=== PATIENT | male | born 1950 | race Caucasian/White ===

== ENCOUNTER → 2019-09-20 10:32 | Outpatient (BNVA) | payer MEDICARE, OTHER, SELFPAY | PROVIDERS: Family Provider Family Medicine; PCP Family Medicine; Referring Provider Family Medicine; Visit Provider Orthopaedic Surgery | DX: M76.51 Patellar tendinitis, right knee (principal); M25.561 Pain in right knee | CPT/HCPCS: 73560; 73565 ==

== ENCOUNTER → 2019-10-21 10:16 | Outpatient (BNVA) | payer MEDICARE, OTHER, SELFPAY | PROVIDERS: Family Provider Family Medicine; PCP Family Medicine; Visit Provider Orthopaedic Surgery | DX: M25.561 Pain in right knee (principal) | CPT/HCPCS: 73560; 73565 ==

== ENCOUNTER 2019-11-13 13:07 | Outpatient (CLI) | payer OTHER, SELFPAY ==
--- NOTE | 2019-11-13 13:30 | USCV_ITS ---
Nehemiah Parkinson Age: 69 Gender: M : 1950 Exam Date: 11/13/2019 13:22 Ordering Phys: Bucky Vieyra DO Technologist: Lee Ann Arias [place] [facility] [place]: BRUIT Risk Factors: Previous Vascular Surgery: Right Brachial BP: / Left Brachial BP: / Right Left Velocity (cm/s) Spectral Plaque Velocity (cm/s) Spectral Plaque Syst/Diast Broadening Syst/Diast Broadening 105.80/7.70 Prox CCA 122.30/ 11.80 66.80/ 8.50 Mid CCA 91.40 / 9.40 66.80/ 9.30 Distal CCA 91.40 / 8.50 35.90/ 9.00 Prox ICA 50.00 / 11.80 68.40/ 15.80 Mid ICA 53.50 / 10.80 66.50/ 15.30 Distal ICA 78.90 / 12.00 67.70 ECA 101.70 1.02 ICA/CCA 0.86 Antegrade Vertebral Antegrade 50.00/ 9.20 cm/s 66.70/ 13.70 cm/s Tri Subclavian Tri 227.2 136.7 0 0 FINDINGS Comparison: none available. No significant elevation of systolic or diastolic velocities. Waveforms are normal. Mild bilateral atherosclerosis. CONCLUSIONS Bilateral ICA stenosis less than 50%. Dr. Emilie High DO (Electronically Signed) Final Date: 14 November 2019 13:53 S
== END 2019-11-13 13:08 | disposition home or self-care (01) ==
LOC: RADWPI 13:12
PROVIDERS: Family Provider Family Medicine; PCP Family Medicine; Visit Provider Emergency Medicine Emergency Medical Services
DX: R09.89 Other specified symptoms and signs involving the circulatory and respiratory systems (principal); I65.23 Occlusion and stenosis of bilateral carotid arteries
CPT/HCPCS: 93880

== ENCOUNTER → 2020-01-08 16:45 | Outpatient (BNVA) | payer MEDICARE, OTHER, SELFPAY | PROVIDERS: Family Provider Family Medicine; PCP Family Medicine; Visit Provider Urology | DX: R31.0 Gross hematuria (principal); N40.1 Benign prostatic hyperplasia with lower urinary tract symptoms | CPT/HCPCS: 80053; 81001 ==

== ENCOUNTER → 2020-01-09 15:14 | Outpatient (BNVA) | payer MEDICARE, OTHER, SELFPAY | PROVIDERS: Family Provider Family Medicine; PCP Family Medicine; Visit Provider Urology | DX: R31.0 Gross hematuria (principal); N40.1 Benign prostatic hyperplasia with lower urinary tract symptoms | CPT/HCPCS: 88112 ==

== ENCOUNTER 2020-01-22 06:47 | Outpatient (CLI) | payer MEDICARE, OTHER, SELFPAY ==
[2020-01-22 07:36] LABS: Blood Urea Nitrogen 11 mg/dL (8-23); Glomerular Filtration Rate 83.4 mL/min (90-130)
[2020-01-22] MEDS: iohexol 300 mg/mL 100 mL Btl IV (07:51)
--- NOTE | 2020-01-22 08:30 | CT_ITS ---
WS: [id number] CT abdomen pelvis wo/w [id number] REASON FOR EXAM: GROSS HEMATURIA IV CONTRAST ADMINISTERED: None. TOTAL EXAM DLP: 3558.[address] scans at [facility] use at least one of these dose optimization techniques: automat ed exposure control; mA and/or kV adjustment per patient size (includes targeted exams where dose is matched to clinical indication); or iterative reconstruction. FINDINGS: The lower lungs appear to be normal. The liver was normal The gallbladder showed no definite stones. There is heavy arteriosclerotic changes of the celiac plexus. The spleen was normal The right left adrenal glands show fatty contents consistent with myelolipoma changes of the adrenal glands. The right and left knees both show stones enlarged staghorn calculus is seen on the left 1.32 cm. Sma ll stones are seen on the right extrarenal pelvis on the right is seen. A definite obstructed ureters not noted. The right colon shows fecal stasis, appendix is not well seen. The aorta and iliac arteries show heavy calcified. In the pelvis a mass is seen in the area of the prostate measures 7.70 x 7.19 cm inhomogenous configu ration aggressive prostate is suspected follow-up evaluation rule out malignancy recommended. A right-sided inguinal hernia with fat in the hernia. The testicles appear to be normal The rectum was normal. A prosthesis total hip replacement on the right. There is no destructive changes of the pelvic bony CT/CT abdomen pelvis wo/w [id number] IMPRESSION: Staghorn calculus left kidney Calcification in both kidneys. No obstructive uropathy. A mass defect of the prostate is seen with inhomogenous configuration evaluatio n recommended for malignancy. Heavy arteriosclerotic changes of the vasculature
== END 2020-01-22 06:48 | disposition home or self-care (01) ==
LOC: CT 06:48
PROVIDERS: Family Provider Family Medicine; PCP Family Medicine; Visit Provider Urology
DX: R31.0 Gross hematuria (principal); N20.0 Calculus of kidney; N28.89 Other specified disorders of kidney and ureter; N40.0 Benign prostatic hyperplasia without lower urinary tract symptoms
CPT/HCPCS: 36415; 74178; 82565; 84520

== ENCOUNTER → 2020-01-24 10:36 | Outpatient (BNVA) | payer MEDICARE, OTHER, SELFPAY | PROVIDERS: Family Provider Family Medicine; PCP Family Medicine; Visit Provider Urology | DX: R31.0 Gross hematuria (principal); N20.0 Calculus of kidney | CPT/HCPCS: 81001 ==

== ENCOUNTER 2020-03-04 13:06 | Outpatient (CLI) | payer MEDICARE, OTHER, SELFPAY ==
--- NOTE | 2020-03-04 13:10 | USCV_ITS ---
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
== END 2020-03-04 13:07 | disposition home or self-care (01) ==
LOC: US 13:07
PROVIDERS: PCP Family Medicine; Visit Provider Family Medicine
DX: I73.9 Peripheral vascular disease, unspecified (principal); L97.829 Non-pressure chronic ulcer of other part of left lower leg with unspecified severity; L97.819 Non-pressure chronic ulcer of other part of right lower leg with unspecified severity
CPT/HCPCS: 93922

== ENCOUNTER 2020-04-14 14:26 | Outpatient (CLI) | payer MEDICARE, OTHER, SELFPAY ==
--- NOTE | 2020-04-14 14:30 | XRR_ITS ---
PROCEDURE INFORMATION: Exam: XR Abdomen, 1 View Exam date and time: 04/14/2020 2:44 PM Age: 70 years old Clinical indication: Condition or disease; Kidney or ureter condition; Calculus (stone) in kidney; Prior surgery; Surgery type: Hernia, appy; Additional info: Renal stones TECHNIQUE: Imaging protocol: XR of the abdomen. Views: Frontal supine view of the abdomen. 1 View. COMPARISON: CT abdomen pelvis wo/w [id number] 01/22/2020 7:41 AM FINDINGS: Gastrointestinal tract: There is stool throughout the colon. No bowel obstruction. Organs: There is 2.1 cm calcification in the inferior left kidney. Calcifications are also seen in the mid left kidney. Bones/joints: There has been a right hip replacement. XR/XR KUB [id number] IMPRESSION: There is 2.1 cm calcification in the inferior left kidney. Calcifications are also seen in the mid left kidney.
== END 2020-04-14 14:27 | disposition home or self-care (01) ==
LOC: RAD 14:28
PROVIDERS: PCP Family Medicine; Visit Provider Urology
DX: N20.0 Calculus of kidney (principal)
CPT/HCPCS: 74018; 81001

== ENCOUNTER 2020-07-10 16:33 | Emergency (ER) | payer MEDICARE, OTHER, SELFPAY ==
[2020-07-10 16:39] VITALS: BP 134/84; PULSE 61; RESP 18; TEMP 36.2; O2SAT 95; BMI 26.6
[2020-07-10 16:45] VITALS: BP 134/84; PULSE 60; RESP 18; O2SAT 95
--- NOTE | 2020-07-10 16:56 | ED_ITS ---
HPI - Abdominal Pain General: Chief Complaint: Abdominal Pain Stated Complaint: OBSTRUCTION Time Seen by Provider: 07/10/20 16:38 Source: patient Mode of arrival: ambulatory Limitations: no limitations History of Present Illness: HPI narrative: Patient complains of left sided abdominal pain, nausea, and vomiting. He is also constipated and has not had a bowel movement in about 3 days, normal for him is about 2 to 3 times daily. He has taken laxatives with no improvement. He went to see his primary care provider today and an x-ray done was concerning for a bowel obstruction so he was sent to the emergency department for evaluation MD elicited complaint: abdominal pain Pertinent past history: constipation Onset (ago): day(s) (3) Pain Consistency: constant Location: Diffuse Severity: severe Quality: cramping Radiation: none Migration to: no migration Exacerbating factors: nothing Relieving factors: nothing Associated Symptoms: Reports change in bowel habits, constipation, GI cramping, nausea and vomiting; Denies anorexia, belching, bloating, change in stool character, chills, coffee ground emesis, diarrhea, dyspepsia, dysuria, excessive flatus, fever(s), heartburn, hematochezia, hematuria, hematemesis, fecal incontinence, loose stools, melena, poor appetite and syncope Review of Systems General: Reports: 10 or more systems reviewed and unremarkable except in HPI and below Const: Denies: fever(s) or chills Eyes: Denies: change in vision or blurry vision ENMT: Denies: throat pain, enlarged tonsils, odynophagia, hoarseness, mouth pain or swelling of lips/tongue Card: Denies: syncope Resp: Denies: dyspnea, productive cough or non-productive cough GI: Reports: abdominal pain, nausea, vomiting, constipation, GI cramping and change in bowel habits; Denies: hematemesis, coffee ground emesis, heartburn, diarrhea, bloating, belching, excessive flatus, fecal incontinence, change in stool character, hematochezia or melena : Denies: dysuria or hematuria Musc: Denies: neck pain, back pain or extremity swelling Skin/Breast: Denies: rash, pruritus or erythema Neuro: Denies: headache(s), numbness in extremities or weakness in extremities Endo: Denies: polyuria, polydipsia or tired all the time PFSH ED PFSH: Medical History (Updated 07/10/20 @ 23:36 by Abel Delvalle [place], [facility] [place] Bilateral renal stones BPH NOS w ur obs/LUTS COPD (chronic obstructive pulmonary disease) Degenerative arthritis of knee Diabetes High cholesterol Family History Father Diabetes Other Stroke Social History Smoking and tobacco status: former smoker Alcohol intake: never Marital status: Current occupational status: retired History of recent travel: No Physical Exam Const: COMMON NORMALS: no acute distress, average body habitus, patient oriented x3, no limitations, healthy appearing, alert and well nourished HENMT: COMMON NORMALS: normocephalic, atraumatic and moist oral mucous membranes HEAD & SCALP: normocephalic and atraumatic Neck/C-Spine: COMMON NORMALS: no meningeal signs and no JVD Resp: COMMON NORMALS: normal respiratory effort, No retractions, No use of accessory muscles, clear to auscultation bilaterally and percussion normal AUSCULTATION: clear to auscultation bilaterally PERCUSSION: percussion normal Cardio: COMMON NORMALS: no JVD, regular rate, regular rhythm, S1 normal heart sound present, S2 normal heart sound present, No gallops present (Cardio), No clicks present (Cardio), No murmurs present (Cardio), No rub (Cardio) and Peripheral pulses 2+ throughout RATE: regular rate RHYTHM: regular rhythm HEART SOUNDS: S1 normal heart sound present and S2 normal heart sound present PERIPHERAL PULSES: Peripheral pulses 2+ throughout GI: COMMON NORMALS: Normal to inspection, nondistended, normoactive bowel sounds present, Soft to palpation, No hepatosplenomegaly present, no masses and no bruits PALPATION: Yes Soft to palpation, Yes Tenderness to palpation prese nt (GI) (mild non specific tenderness) and Yes No hepatosplenomegaly present Extremity: COMMON NORMALS: normal to inspection, full ROM, capillary refill normal, no calf tenderness and no pedal edema Neuro: COMMON NORMALS: patient oriented x3 SENSORIUM/ORIENTATION: Yes alert MENINGEAL SIGNS: Yes no meningeal signs Skin: COMMON NORMALS: no rashes or lesions noted, no wounds, turgor normal, no jaundice, no petechiae and no mottling GENERAL SKIN EXAM: no rashes or lesions noted and turgor normal Course Reevaluation(s): Reevaluation #1: Discussed his lab and imaging findings with him. He has a large left renal calculus which will need removal. 2 large to person exam. He has hydronephrosis. Also has mild acute kidney injury. Explained my conversation with the urologist and he voiced understanding and is in agreement with the plan. Time: 20:00 Consultations: Consultation #1: Discussed the patient with Dr. Sparks. The patient should call him to the office on Monday for lithotripsy if his pain is well controlled. Clear liquids on Monday and Monday up to 8 AM. Time: 19:45 Vital Signs: Vital signs: Vital Signs Temperature 97.2 F L 07/10/20 16:39 Pulse Rate 64 07/10/20 20:17 Respiratory Rate 16 07/10/20 20:17 Blood Pressure 164/93 07/10/20 20:17 Pulse Oximetry 96 07/10/20 20:17 MDM - Abdominal Pain MDM Narrative: Medical decision making narrative: 70-year-old male with a large calculus at the left UP junction. He also has moderate to severe hydronephrosis. Pain was well controlled in the emergency department and he discharged home to follow-up with the urologist on Monday for lithotripsy. UA was negative for UTI. White cell count is normal. Differential Diagnosis: Differential diagnosis abdominal pain: Likely abdominal pain, acute appendicitis, calculus of kidney and constipation Medical Records: Attestation: I reviewed the patient's medical records. Lab Data: Attestation: I reviewed the patient's lab results. Labs: Lab Results 07/10/20 07/10/20 07/10/20 Range/Units 17:00 17:00 17:00 WBC 9.8 (4.0-10.0) 10^3/ uL RBC 4.77 (4.1-5.3) 10^6/u L Hgb 13.3 (11.7-16.6) g/dL Hct 38.8 L (42.0-52.0) % MCV 81.3 (80-94) fL MCH 27.9 L (28.0-34.0) pg MCHC 34.3 (30.0-36.0) g/dL RDW 12.5 (12.1-15.1) % Plt Count 128 L (130-400) 10^3/c mm MPV 10.3 (7.4-10.4) fL Neut % (Auto) 71.4 % Lymph % (Auto) 15.4 % [place] % (Auto) 12.1 % Eos % (Auto) 0.4 % Baso % (Auto) 0.3 % Neut # (Auto) 6.98 (1.8-7.7) 10^3/u L Lymph # (Auto) 1.5 (0.8-4.8) 10^3/u L [place] # (Auto) 1.2 H (0.2-0.9) 10^3/u L Eos # (Auto) 0.0 (0.0-0.8) 10^3/u L Baso # (Auto) 0.0 (0.0-0.1) 10^3/u L Nucleated RBC % (a uto) 0 % Nucleated RBCs # 0.0 /100WBC Sodium 137 (136-145) mmol/L Potassium 4.2 (3.5-5.1) mmol/L Chloride 99 (98-107) mmol/L Carbon Dioxide 28 (22-29) mmol/L Anion Gap 14.2 (5-19) BUN 21 (8-23) mg/dL Creatinine 1.5 H (0.7-1.2) mg/dL GFR Calculation Not Reportable Glucose 119 H (65-115) mg/dL Calculated Osmolal ity 288 (285-295) mOsm/k g Lactate 1.0 (0.5-2.2) mmol/L Calcium 9.4 (8.5-10.5) mg/dL Magnesium 1.9 (1.7-2.3) mg/dL Total Bilirubin 0.5 (0.15-1.2) mg/dL AST 12 (0-40) U/L ALT 9 (0-41) U/L Alkaline Phosphata se 74 (40-130) IU/L Creatine Kinase 85 (39-308) U/L C-Reactive Protein 89.8 H (0.0-4.9) mg/L Total Protein 6.1 L (6.6-8.7) g/dL Albumin 4.2 (3.5-5.2) g/dL Globulin 1.9 (1.3-4.6) g/dL Lipase 7 L (13-60) U/L Urine Color (Yellow) Urine Appearance (CLEAR) Urine pH (5-7) Ur Specific Gravit y (1.005-1.030) Urine Protein (Negative) Urine Glucose (UA) (Normal) Urine Ketones (Negative) Urine Blood (Negative) Urine Nitrate (Negative) Urine Bilirubin (Negative) Urine Urobilinogen (Negative) mg/dL Ur Leukocyte Melina ase (Negative) Urine RBC (0-2) /hpf Urine WBC (0-5) /hpf Ur Squamous Epith Cells (0-5) /hpf Amorphous Sediment Urine Bacteria (NONE) /hpf 07/10/20 Range/Units 18:43 WBC (4.0-10.0) 10^3/ uL RBC (4.1-5.3) 10^6/u L Hgb (11.7-16.6) g/dL Hct (42.0-52.0) % MCV (80-94) fL MCH (28.0-34.0) pg MCHC (30.0-36.0) g/dL RDW (12.1-15.1) % Plt Count (130-400) 10^3/c mm MPV (7.4-10.4) fL Neut % (Auto) % Lymph % (Auto) % [place] % (Auto) % Eos % (Auto) % Baso % (Auto) % Neut # (Auto) (1.8-7.7) 10^3/u L Lymph # (Auto) (0.8-4.8) 10^3/u L [place] # (Auto) (0.2-0.9) 10^3/u L Eos # (Auto) (0.0-0.8) 10^3/u L Baso # (Auto) (0.0-0.1) 10^3/u L Nucleated RBC % (a uto) % Nucleated RBCs # /100WBC Sodium (136-145) mmol/L Potassium (3.5-5.1) mmol/L Chloride (98-107) mmol/L Carbon Dioxide (22-29) mmol/L Anion Gap (5-19) BUN (8-23) mg/dL Creatinine (0.7-1.2) mg/dL GFR Calculation Glucose (65-115) mg/dL Calculated Osmolal ity (285-295) mOsm/k g Lactate (0.5-2.2) mmol/L Calcium (8.5-10.5) mg/dL Magnesium (1.7-2.3) mg/dL Total Bilirubin (0.15-1.2) mg/dL AST (0-40) U/L ALT (0-41) U/L Alkaline Phosphata se (40-130) IU/L Creatine Kinase (39-308) U/L C-Reactive Protein (0.0-4.9) mg/L Total Protein (6.6-8.7) g/dL Albumin (3.5-5.2) g/dL Globulin (1.3-4.6) g/dL Lipase (13-60) U/L Urine Color Yellow (Yellow) Urine Appearance Clear (CLEAR) Urine pH 5 (5-7) Ur Specific Gravit y 1.020 (1.005-1.030) Urine Protein Trace (Negative) Urine Glucose (UA) Norm (Normal) Urine Ketones 1+ H (Negative) Urine Blood 2+ H (Negative) Urine Nitrate Negative (Negative) Urine Bilirubin Neg (Negative) Urine Urobilinogen Norm (Negative) mg/dL Ur Leukocyte Melina ase Negative (Negative) Urine RBC 50-80 H (0-2) /hpf Urine WBC 0-4 H (0-5) /hpf Ur Squamous Epith Cells 0-4 H (0-5) /hpf Amorphous Sediment Not Reportable Urine Bacteria 2+ H (NONE) /hpf Imaging Data ^: CT Abd/Pel: Radiologist's impression: [address] [place] [address] CT Scan Report Signed Patient: Nehemiah Parkinson #: [id number] : 9Acct#:[id number] Age/Sex: 70 / MADM Date: 07/10/20 Loc: ERRoom/Bed: Attending Dr: Ordering Provider/Ordering MD: Abel Delval[place] [facility] [place] of Service: 07/10/20 Procedure(s): CT abdomen pelvis wo con [id number] Accession Number(s): [id number] Report Number: [id number] PROCEDURE INFORMATION: Exam: CT Abdomen And Pelvis Without Contrast Exam date and time: 07/10/2020 5:20 PM Age: 70 years old Clinical indication: Abdominal pain; Localized; Left; Prior surgery; Surgery date: 6+ months; Surgery type: Hernia, hip; Patient HX: C/O L sided abd pain w n/v and constipation; Additional info: Constipation x 3 days, vomiting, abd distension TECHNIQUE: Imaging protocol: Computed tomography of the abdomen and pelvis without contrast. Radiation optimization: All CT scans at this facility use at least one of these dose optimization techniques: automated exposure control; mA and/or kV adjustment per patient size (includes targeted exams where dose is matched to clinical indication); or iterative reconstruction. COMPARISON: CT abdomen pelvis wo/w [id number] 01/22/2020 7:41 AM RADIATION DOSE METRICS: Total DLP (mGy-cm): 1335.25 FINDINGS: Lungs: There is mild bibasilar reticular and ground-glass opacity compatible with atelectasis, scarring or trace pneumonitis. Pleural space: There is trace left pleural fluid. Heart: There is trace pericardial effusion. Liver: Unremarkable.No mass. Gallbladder and bile ducts: Normal. No calcified stones. No ductal dilation. Pancreas: Normal. No ductal dilation. Spleen: Normal. No splenomegaly. Adrenal glands: Normal. No mass. Kidneys and ureters: There is nonobstructive right nephrolithiasis and renal vascular calcifications. There is moderate to severe left hydronephrosis with abundant left perinephric fat stranding and a 1.5 cm calculus at the left ureteral pelvic junction. Nonobstructive left nephrolithiasis and renal vascular calcifications are also noted. No additional calculi are identified in the left ureter. There is no right-sided hydronephrosis. There is a calculus in the distal right ureter just proximal to the right ureteral vesicle junction measuring 6 mm. There is dilatation of the right ureter only immediately adjacent to this calculus. Bilateral non-obstructing calculi measure up to 2 mm on the right and 3 mm on the left. Stomach and bowel: There is no evidence of intestinal perforation or obstruction. There is excessive colonic stool content. Appendix: A normal appendix is identified. Intraperitoneal space: Unremarkable. No free air. No significant fluid collection. Vasculature: The aorta demonstrates moderate atherosclerotic calcification. Lymph nodes: Unremarkable.No enlarged lymph nodes. Urinary bladder: There is nonspecific bladder wall thickening. This may be related to incomplete distention. There are no bladder calculi. Reproductive: The prostate demonstrates marked nonspecific enlargement. The seminal vesicles are normal. The prostate demonstrates nonspecific parenchymal calcifications. Bones/joints: There is a satisfactory appearance of the right hip arthroplasty. There is osteopenia with moderate degenerative changes in the spine. There is bilateral spondylolysis of L5 with grade 1 spondylolisthesis of L5 on S1. Soft tissues: There is a right inguinal hernia containing fat and a loop of bowel at the entrance of the hernia without obstruction. There is a small fat filled left inguinal hernia. Other findings: There are moderate to severe emphysematous changes. CT/CT abdomen pelvis wo con [id number] IMPRESSION: 1. There is moderate to severe left hydronephrosis with abundant left perinephric fat stranding and a 1.5 cm calculus at the left ureteral pelvic junction. 2. There is no right-sided hydronephrosis. There is a calculus in the distal right ureter just proximal to the right ureteral vesicle junction measuring 6 mm. There is dilatation of the right ureter only immediately adjacent to this calculus. 3. There is marked constipation. No bowel thickening, inflammatory changes or bowel obstruction. A nonobstructing segment of small bowel is noted in the entrance of the right inguinal hernia. 4. There is mild bibasilar reticular and ground-glass opacity compatible with atelectasis, scarring or trace pneumonitis. Radiation Dose CTDIVOL = (mGy): DLP = 1335.25 (mGy-cm) Dictated By:Kaila Younger Signed By:Marissa Youngerigned Date/Time:07/10/201802 DD/ 01 Discharge Plan Discharge Patient Disposition: Home Clinical Impression: Calculus of kidney, Hydronephrosis concurrent with and due to calculi of kidney and ureter, VEDA (acute kidney injury) Condition: Stable Prescriptions: [place] 5-325 mg tablet 1 tab PO Q8H PRN (Reason: pain) Qty: 20 RF: 0 lactulose 10 gram/15 mL (15 mL) solution 30 ml PO TID PRN (Reason: constipation) Qty: 1440 RF: 0 Metamucil 3.4 gram/5.4 gram powder 1 tbsp PO BID Qty: 660 RF: 0 Colace 100 mg capsule 100 mg PO BID Qty: 30 RF: 0 Continued atenolol 100 mg tablet 100 mg PO DAILY@09 RF: 0 albuterol sulfate 90 mcg/actuation aerosol powdr breath activated 3 inh INHALATION QID PRN (Reason: Shortness Of Breath) RF: 0 docusate sodium 50 mg capsule 150 mg PO DAILY@18 RF: 0 simvastatin 40 mg tablet 20 mg PO DAILY@09 RF: 0 omeprazole 20 mg capsule,delayed release(DR/EC) 20 mg PO BID@ RF: 0 fluoxetine 20 mg capsule 20 mg PO DAILY@ RF: 0 Spiriva Respimat 2.5 mcg/actuation mist 2 inh INHALATION DAILY@ RF: 0 metformin 1,000 mg tablet 1,000 mg PO BID@ RF: 0 sildenafil 100 mg tablet 20 - 100 mg PO PRN RF: 0 Lantus U-100 Insulin 100 unit/mL solution 46 unit SUBCUT BEDTIME RF: 0 Vitamin C 500 mg Tablet 500 mg PO DAILY@09 RF: 0 Humulin R Regular U-100 Insuln 100 unit/mL Solution See Rx Instructions .ROUTE .COMPLEX RF: 0 losartan 100 mg tablet 50 mg PO DAILY RF: 0 Vitamin D3 25 mcg (1,000 unit) Capsule 2,000 unit PO DAILY@18 RF: 0 Centrum Silver 0.4-300-250 mg-mcg-mcg Tablet 1 tab PO DAILY@09 RF: 0 tamsulosin 0.4 mg capsule 0.4 mg PO DAILY@18 RF: 0 dutasteride 0.5 mg capsule 0.5 mg PO DAILY@09 RF: 0 Discharge Orders: Discharge ED (Routine); Ordered 07/10/20 Ordered By: Abel Delvalle Referrals: Kevin Sparks MD [Physician] - 07/13/20 Clarence Bradford MD [Primary Care Provider] - Discharge Diet: As Directed Discharge Activity: Increase activity as tolerated Patient Instructions: Kidney Stones (ED), Hydronephrosis (ED) Activity Restrictions/Additional Instructions: Return for any new or worsening symptoms. Follow-up with Dr. Sparks on Monday around 8:00. On Monday consume clear liquids only until about 7:00 on Marco A morning. If you have pain gets worse or you develop a fever or you have any concerns please return for evaluation. Take the pain medicine as needed. Take the medications for constipation until you have had good bowel movements. 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
[2020-07-10 17:13] LABS: Basophils % 0.3 %; Eosinophils % 0.4 %; Hematocrit 38.8 % (42.0-52.0); Hemoglobin 13.3 g/dL (11.7-16.6); Lymphocytes # 1.5 10^3/uL (0.8-4.8); Lymphocytes % 15.4 %; Mean Corpuscular HGB Conc 34.3 g/dL (30.0-36.0); Mean Corpuscular Hemoglobin 27.9 pg (28.0-34.0); Mean Corpuscular Volume 81.3 fL (80-94); Mean Platelet Volume 10.3 fL (7.4-10.4); Monocytes # 1.2 10^3/uL (0.2-0.9); Monocytes % 12.1 %; Neutrophils # 6.98 10^3/uL (1.8-7.7); Neutrophils % 71.4 %; Nucleated Red Blood Cells % 0 %; Platelet Count 128 10^3/cmm (130-400); Red Blood Count 4.77 10^6/uL (4.1-5.3); Red Cell Distribution Width 12.5 % (12.1-15.1); White Blood Count 9.8 10^3/uL (4.0-10.0)
[2020-07-10 17:28] LABS: Alanine Aminotransferase 9 U/L (0-41); Albumin Level 4.2 g/dL (3.5-5.2); Alkaline Phosphatase 74 IU/L (40-130); Anion Gap 14.2 (5-19); Aspartate Amino Transferase 12 U/L (0-40); Blood Urea Nitrogen 21 mg/dL (8-23); C Reactive Protein 89.8 mg/L (0.0-4.9); Calcium 9.4 mg/dL (8.5-10.5); Carbon Dioxide 28 mmol/L (22-29); Chloride 99 mmol/L (98-107); Creatine Phosphokinase 85 U/L (39-308); Globulin 1.9 g/dL (1.3-4.6); Glucose 119 mg/dL (65-115); Lipase 7 U/L (13-60); Magnesium 1.9 mg/dL (1.7-2.3); Osmolality Calculated 288 mOsm/kg (285-295); Potassium 4.2 mmol/L (3.5-5.1); Sodium 137 mmol/L (136-145); Total Bilirubin 0.5 mg/dL (0.15-1.2); Total Protein 6.1 g/dL (6.6-8.7)
[2020-07-10 17:42] VITALS: BP 149/79; PULSE 57; RESP 17; O2SAT 94
--- NOTE | 2020-07-10 17:43 | PC.NURSE ---
Pt to CT
[2020-07-10] MEDS: sodium chloride 0.9% 1,000 ML 999 ML IV (18:23)
[2020-07-10 18:44] VITALS: BP 152/88; PULSE 60; RESP 18; O2SAT 96
[2020-07-10 19:28] LABS: Protein Urine Trace (Negative); Urine Appearance Clear (CLEAR); Urine Color Yellow (Yellow); pH Urine 5 (5-7)
[2020-07-10 19:29] LABS: Add Urine Microscopic? YES; Bilirubin Urine Neg (Negative); Blood Urine 2+ (Negative); Glucose Urine UA Norm (Normal); Ketones Urine 1+ (Negative); Leukocyte Esterase Urine Negative (Negative); Nitrate Urine Negative (Negative); Urobilinogen Urine Norm (Negative)
[2020-07-10 19:36] LABS: RBC Urine 50-80 /hpf (0-2); Squamous Epithelial Cell Urine 0-4 /hpf (0-5); WBC Urine 0-4 /hpf (0-5)
[2020-07-10 19:37] LABS: Add Urine Culture? Yes; Bacteria Urine 2+ /hpf
[2020-07-10 20:17] VITALS: BP 164/93; PULSE 64; RESP 16; O2SAT 96
[2020-07-13 10:38] LABS: Coronavirus Lab Test PTC Negative
--- NOTE | 2020-07-13 18:57 | PC.NURSE ---
pt called and given the results of his covid test
== END 2020-07-10 20:18 | disposition home or self-care (01) ==
PROVIDERS: Emergency Provider Family Medicine; PCP Family Medicine
DX: N17.9 Acute kidney failure, unspecified (principal); N13.2 Hydronephrosis with renal and ureteral calculous obstruction; Z79.4 Long term (current) use of insulin; Z87.442 Personal history of urinary calculi; J44.9 Chronic obstructive pulmonary disease, unspecified; E11.9 Type 2 diabetes mellitus without complications; Z87.891 Personal history of nicotine dependence
CPT/HCPCS: 12345; 74176; 80053; 81001; 82550; 83605; 83690; 83735; 85025; 86140; 87086; 87635; 96360; 99282; 99283; J7030

== ENCOUNTER 2020-07-13 08:06 | Outpatient (CLI) | payer MEDICARE, OTHER, SELFPAY ==
--- NOTE | 2020-07-13 08:13 | XR_ITS ---
WS: [id number] XR KUB [id number] REASON FOR EXAM: STONES FINDINGS: There are multiple small calculi in the left kidney as shown by previous CT scan 07/10/2020. There is now a large calculus at the left ureteropelvic junction also demonstrated on the previous CT scan. Th at calculus was within the kidney on CT scan of 01/22/2020. The position of this calculus has not rico ged in the interval between 07/10 and 07/13/2020. XR/XR KUB [id number] IMPRESSION: Left urinary tract calculi as above.
== END 2020-07-13 08:07 | disposition home or self-care (01) ==
LOC: RAD 08:10
PROVIDERS: PCP Family Medicine; Visit Provider Urology
DX: N20.0 Calculus of kidney (principal)
CPT/HCPCS: 74018; 81003

== ENCOUNTER 2020-07-13 14:17 | Day surgery (SDC) | payer MEDICARE, OTHER, SELFPAY ==
[2020-07-13] VITALS (7 sets, daily range): BP systolic 141–176; BP diastolic 76–97; PULSE 58–81; RESP 17–20; TEMP 36.3–36.4; O2SAT 93–100
[2020-07-13 15:16] LABS: Glucose Point of Care 125 mg/dL (70-110)
[2020-07-13] MEDS: sodium chloride 0.9% 1,000 ML 30 ML IV (15:25)
--- NOTE | 2020-07-13 15:29 | ANES.PREANE2 ---
Pre-Anesthetic Assessment Pre-Anesthetic Assessment: Height/Weight: Height 1.8 m Weight 86.183 kg Preop Diagnosis: Large obstructing left proximal ureteral stone Proposed Procedure: Operation Date: 07/13/20 15:45 Proposed Procedures p Cystoscopy 56753 15666 N20.1(Not Applicable) - MD travis Scanlon left Ureteral Stent Placement(Left) - MD travis Scanlon ESWL Extracorporeal Shockwave Lithotrispy(Not Applicable) - Kevin Sparks MD Familial anesthetic complications: None Was Beta Baltazar taken within 24 hours: N/A Last intake: Intake Last Liquid Date 07/13/20 Last Liquid Time 08:00 Last Solid Date 07/12/20 Last Solid Time 12:00 Social: Social History: No alcohol and No tobacco Exam: Pre-Anes Outpt Exam: alert, oriented x 3, clear to auscultation bilaterally and regular rate & rhythm Airway: Cervical ROM: WNL MP: 3 Dentition: Other (no teeth) Pulmonary: Pulmonary: COPD CV/HEM: CV/HEM: HTN : Comments: VEDA - hydronephrosis GI: GI: GERD Metabolic: Metabolic: DM Anesthetic Plan: ASA status: 3 Anesthesia: General Risk of > 500 ml blood loss (7ml/kg in children): No Meds/Allergies Current Medications: Current Medications Generic Name Dose Route Start Last Admin Trade Name Freq PRN Reason Stop Dose Admin Sodium Chloride 1,000 mls @ 30 ml s/hr 07/13/20 15:15 07/13/20 15:25 Sodium Chloride 0.9% IV 07/14/20 15:14 30 mls/hr .Q24H CASS Administration PFSH Anesthesia PFSH: Medical History Bilateral renal stones BPH NOS w ur obs/LUTS COPD (chronic obstructive pulmonary disease) Degenerative arthritis of knee Diabetes High cholesterol Left ureteral calculus Family History Father Diabetes Other Stroke Social History Smoking and tobacco status: former smoker Alcohol intake: never Marital status: Current occupational status: retired History of recent travel: No Data Anesthesia Other Labs: Laboratory Results - last 48 hr 07/13/20 15:13 POC Glucose 125 Cardiac Studies: No Data to Display
--- NOTE | 2020-07-13 16:20 | W.PM.OPSUD ---
Surgery/Procedure H&P Update DATE OF PROCEDURE: July 13, 2020 DATE H&P PERFORMED: 07/13/20 H&P UPDATE INFORMATION: I have reviewed H&P completed within last 30 days, I have examined patient prior to procedure, No changes to prior documentation and H&P to be scanned into chart PREOP DIAGNOSIS: Large obstructing left proximal ureteral stone PLANNED PROCEDURE: Operation Date: 07/13/20 15:45 Proposed Procedures p Cystoscopy 57035 30673 N20.1(Not Applicable) - Kevin Sparks MD s left Ureteral Stent Placement(Left) - Kevin Sparks MD s ESWL Extracorporeal Shockwave Lithotrispy(Not Applicable) - Kevin Sparks MD
--- NOTE | 2020-07-13 16:22 | P.OP_ITS ---
Operative Report Date of procedure: July 13, 2020 Pre-op Diagnosis: Large obstructing left proximal ureteral stone Post-op diagnosis: same Procedure Done: 1. Cystoscopy, left ureteral stent placement 2. Extracorporeal shockwave lithotripsy Pathology: none sent Surgeon: Bridger Raiser Helper: Luther Chu: Lithotripsy commercial pest control technician Anesthesia: General Estimated blood loss: Minimal Urine output: Not measured Complications: None Findings: Has severe J hooking of his distal ureters which made passage of the wire and stent somewhat difficult but ultimately successful. Stone was easily located with biplanar fluoroscopy. 2500 shocks administered. Excellent and early change was noted. Condition: stable Disposition: PACU Brief History: Killian is a very pleasant 70-year-old white male with a known history of asymptomatic nonobstructing left renal calculi who 3 days ago presented to the emergency department with severe abdominal pain and was discovered to have the largest of the stones in the left kidney having migrated down into the proximal ureter causing obstruction. He was aggressively managed with medication and was able to control the pain enough to be managed as an outpatient in anticipation of ESWL today. No contraindication to surgery. Procedure: After routine preoperative evaluation examination and obtaining of informed consent he was taken to the operating suite on 07/13/2020 where general anesthesia was administered without difficulty after appropriate timeout was performed, SCDs confirmed to be functioning, preoperative antibiotics administered, beta-wu protocol confirmed. Prepped and draped in the usual sterile fashion in supine position paying careful attention to avoiding pressure points. 21 Greenlandic cystoscope with 30 degree lens was introduced into the urethral meatus and advanced into the bladder under videoscopy. Bladder was systematically examined and found to be the normal limits. Has a huge prostate gland. Flexible tip guidewire was then passed up the left ureter bypassing the stone. A 7 Greenlandic by 30 cm double-pigtail stent was then advanced over the guidewire through the cystoscope into appropriate position as confirmed via fluoroscopy and cystoscopy. He was then repositioned on the Dornier unit in supine position and the stone was brought into the focal point utilizing biplanar fluoroscopy with a shock head positioned posteriorly. Shockwave therapy was initiated at an intensity of 1 and advanced an intensity of 4 initially at a rate of 70. After approximately 300 shocks a several minute pause was conducted. Fluoroscopy was utilized real-time for position changes as needed as the stone demonstrated change in its appearance. Results: 1. Excellent change to the stone. Better than anticipated given the density of the stone. 2. Difficult to pass the guidewire due to severe J hooking but ultimately successful with appropriate positioning of the stent. PLANS: 1. Follow-up in about 2 weeks with a KUB first. Consider stent removal at that time if no remaining fragments too large to likely pass. 2. For marginal pieces I would consider re-treating before removing the stent
[2020-07-13] MEDS: HYDROcodone-acetaminophen 5-325 mg Tablet 1 TAB PO (18:50)
--- NOTE | 2020-07-13 19:10 | ANE.PACU2 ---
Inpatient post-anesthesia follow up: Airway intact: Yes Vital signs: Temperature 97.6 F Pulse Rate 63 Respiratory Rate 18 Blood Pressure 175/91 Pulse Oximetry 94 Oxygen Delivery Me thod Room Air Oxygen Flow Rate 8 Fraction of Inspir ed Oxygen Hydration adequate: Yes Nausea and vomiting: No Pain level: 1 Mental status: Baseline
== END 2020-07-13 19:10 | disposition home or self-care (01) ==
PROVIDERS: PCP Family Medicine; Visit Provider Urology
PROC: 0TJB8ZZ Inspection of Bladder, Via Natural or Artificial Opening Endoscopic (ICD-10-PCS; CPT 52000; principal; 2020-07-13 15:45)
PROC: (CPT 50605; 2020-07-13 15:45)
PROC: (CPT 50590; 2020-07-13 15:45)
DX: N20.1 Calculus of ureter (principal); N40.1 Benign prostatic hyperplasia with lower urinary tract symptoms; N13.8 Other obstructive and reflux uropathy; R35.0 Frequency of micturition; R35.1 Nocturia; R39.15 Urgency of urination; R39.12 Poor urinary stream; R97.20 Elevated prostate specific antigen [PSA]; J44.9 Chronic obstructive pulmonary disease, unspecified; E11.9 Type 2 diabetes mellitus without complications; Z79.4 Long term (current) use of insulin; Z82.3 Family history of stroke; Z87.891 Personal history of nicotine dependence; I10 Essential (primary) hypertension; K21.9 Gastro-esophageal reflux disease without esophagitis; N13.30 Unspecified hydronephrosis; N20.0 Calculus of kidney
CPT/HCPCS: 50590; 52332; 12345; 36416; 74018; 81003; 82962; 96365; C2625; J0690; J1100; J2405; J2704; J3010; J3490; J7030

== ENCOUNTER 2020-07-28 08:23 | Outpatient (CLI) | payer MEDICARE, OTHER, SELFPAY ==
--- NOTE | 2020-07-28 08:30 | XRR_ITS ---
PROCEDURE INFORMATION: Exam: XR Abdomen, 1 View Exam date and time: 07/28/2020 8:39 AM Age: 70 years old Clinical indication: Condition or disease; Kidney or ureter condition; Calculus (stone) in ureter; Prior surgery; Surgery type: Stents, umbilical hernia; Additional info: Ureteral stone TECHNIQUE: Imaging protocol: XR of the abdomen. Views: Frontal supine view of the abdomen. 1 View. COMPARISON: CR XR KUB [id number] 07/13/2020 8:18 AM FINDINGS: Gastrointestinal tract: Normal. No bowel dilation. Organs: Numerous renal calcifications left kidney largest of approximately 7 mm inferiorly. Vasculature: Double-J ureteric stent on the left. Proximal pigtail likely in the renal pelvis. Distal pigtail extends superiorly and to the right. Correlate. Likely related to the enlarged prostate gland noted on CT. Bones/joints: Unremarkable. XR/XR KUB [id number] IMPRESSION: 1. Double-J ureteric stent on the left. Proximal pigtail likely in the renal pelvis. Distal pigtail extends superiorly and to the right. Correlate. Likely related to the enlarged prostate gland noted on CT. 2. Numerous renal calcifications left kidney largest of approximately 7 mm inferiorly.
== END 2020-07-28 08:24 | disposition home or self-care (01) ==
PROVIDERS: PCP Family Medicine; Visit Provider Urology
DX: N20.1 Calculus of ureter (principal); Z96.0 Presence of urogenital implants; N20.0 Calculus of kidney
CPT/HCPCS: 74018; 81003; 82365; 88300

== ENCOUNTER 2020-08-21 09:24 | Outpatient (CLI) | payer MEDICARE, OTHER, SELFPAY ==
--- NOTE | 2020-08-21 09:30 | XR_ITS ---
WS: [id number] KUB, 08/21/2020 Clinical Data: RENAL STONES Comparison: KUB, 07/28/2020 Findings: No abnormal intraabdominal masses are seen. There is no dilatated small bowel or evidence of obstruct ion. The left ureteral stent remains in the same position. There are calcifications overlying the left kid leona. There is fecal material throughout the colon. There is a right hip arthroplasty in good position . XR/XR KUB [id number] Impression: 1. No change in position of left ureteral stent. 2. No change in left renal calcifications.
== END 2020-08-21 09:25 | disposition home or self-care (01) ==
PROVIDERS: PCP Family Medicine; Visit Provider Urology
DX: N20.0 Calculus of kidney (principal); Z96.0 Presence of urogenital implants
CPT/HCPCS: 74018; 81003; 82365; 88300

== ENCOUNTER 2020-12-16 13:26 | Outpatient (CLI) | payer MEDICARE, OTHER, SELFPAY ==
--- NOTE | 2020-12-16 13:30 | XR_ITS ---
WS: [id number] KUB, AP view, 12/16/2020 Clinical Data: N20.0 - Calculus of kidney Comparison: KUB, 08/21/2020. Findings: No abnormal intraabdominal masses are seen. There is no dilatated small bowel or evidence of obstruct ion. There are numerous calcifications overlying the left kidney there are calcifications perhaps overlyin g the right kidney but much details obscured by fecal material. There is a right hip arthroplasty. XR/XR KUB [id number] Impression: Numerous calcifications overlying the left kidney.
== END 2020-12-16 13:27 | disposition home or self-care (01) ==
LOC: RAD 13:29
PROVIDERS: PCP Family Medicine; Visit Provider Urology
DX: N20.0 Calculus of kidney (principal); R97.20 Elevated prostate specific antigen [PSA]; N40.1 Benign prostatic hyperplasia with lower urinary tract symptoms
CPT/HCPCS: 74018; 81003; 84153

== ENCOUNTER → 2021-04-15 13:44 | Outpatient (BNVA) | payer MEDICARE, OTHER, SELFPAY | PROVIDERS: PCP Family Medicine; Referring Provider Orthopaedic Surgery; Visit Provider Specialist | DX: E11.40 Type 2 diabetes mellitus with diabetic neuropathy, unspecified; Z79.4 Long term (current) use of insulin; Z87.891 Personal history of nicotine dependence; M43.17 Spondylolisthesis, lumbosacral region | CPT/HCPCS: 95909 ==

== ENCOUNTER 2021-04-26 15:38 | Outpatient (CLI) | payer MEDICARE, OTHER, SELFPAY ==
--- NOTE | 2021-04-26 16:00 | MR_ITS ---
WS: [id number] MRI LUMBAR SPINE NONCONTRAST HISTORY: LUMBAR PAIN COMPARISON: CT 07/10/2020. TECHNIQUE: Sagittal and axial multisequence imaging is submitted. There are 7 cervical and 12 thoracic vertebral bodies. On the tester vibrator equipment localizer there are only 4 nonrib -bearing lumbar type vertebral bodies. This numbering pattern will be utilized for this examination. Increase in thoracic kyphosis with moderate degenerative disc disease throughout the thoracic spine. L4 anterolisthesis by 8 mm. Moderate degenerative disc disease throughout the lumbar spine. No marrow edema or acute fracture. Conus terminates normally at T12. L1-L2: Normal. L2-L3: Mild annular disc bulging with mild facet and flavum hypertrophy. No stenosis. L3-L4: Mild annular disc bulging. Mild ligamentum flavum hypertrophy and facet hypertrophy. Small ner ve root sleeve diverticulum on the RIGHT. No stenosis. L4 S1: Unroofing of the disc with mild clumping of the nerve roots in the periphery of the thecal sac . Ligamentum flavum and facet joint hypertrophy encroaching into the central canal. Moderate ligament um flavum and facet arthritis. Disc and facet disease extends into the neural foramen bilaterally. Mo derate to severe LEFT and moderate RIGHT foraminal stenosis. Bilateral pars defects are also present at the L4 level. Also noted is a small amount of reactive edema along the adjacent endplates of L4 an d S1 on the LEFT. Prostate gland is enlarged encroaching into the urinary bladder. MR/MR lumbar spine wo con* [id number] IMPRESSION: 1. Only 4 nonrib-bearing lumbar type vertebral bodies are identified. This num bering pattern will be important if surgery is contemplated in this patient. 2. 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 3. Moderate to severe LEFT and moderate RIGHT foraminal stenosis at L4-S1 due to combination of the spondylolisthesis disc bulging and facet arthritis. 4. Mild encroachment into the central canal at the L4-S1 level predominantly d ue to facet ligamentum flavum hypertrophy.
== END 2021-04-26 15:39 | disposition home or self-care (01) ==
PROVIDERS: PCP Family Medicine; Visit Provider Orthopaedic Surgery
DX: M43.06 Spondylolysis, lumbar region (principal); M48.07 Spinal stenosis, lumbosacral region
CPT/HCPCS: 72148

== ENCOUNTER 2021-12-21 09:56 | Outpatient (CLI) | payer MEDICARE, OTHER, SELFPAY ==
--- NOTE | 2021-12-21 10:10 | XRR_ITS ---
PROCEDURE INFORMATION: Exam: XR Abdomen Exam date and time: 12/21/2021 10:13 AM Age: 71 years old Clinical indication: Condition or disease; Kidney or ureter condition; Calculus (stone) in kidney; Prior surgery; Surgery type: Hernia repari; Additional info: Bilateral renal stones, [email or web address] 12/21/21 @1000 appointment to follow TECHNIQUE: Imaging protocol: XR of the abdomen. Views: Frontal supine view of the abdomen. 1 View. COMPARISON: CR XR KUB [id number] 12/16/2020 1:48 PM FINDINGS: Gastrointestinal tract: Normal. No bowel dilation. Organs: Multiple left-sided renal calculi suspected measuring up to 8 mm, similar to prior exam. Bones/joints: Unremarkable. XR/XR KUB [id number] IMPRESSION: Multiple left-sided renal calculi suspected measuring up to 8 mm, similar to prior exam.
== END 2021-12-21 09:57 | disposition home or self-care (01) ==
LOC: RAD 10:03
PROVIDERS: PCP Family Medicine; Visit Provider Urology
DX: N20.0 Calculus of kidney (principal)
CPT/HCPCS: 74018; 81000; 81003; 87086

== ENCOUNTER 2022-05-02 15:24 | Emergency (ER) | payer MEDICARE, OTHER, SELFPAY ==
[2022-05-02 15:40] VITALS: BP 149/77; PULSE 66; RESP 16; TEMP 36.4; O2SAT 97; BMI 26.4
[2022-05-02 17:01] LABS: Basophils # 0.1 10^3/uL (0.0-0.1); Basophils % 0.6 %; Eosinophils # 0.1 10^3/uL (0.0-0.8); Eosinophils % 0.8 %; Hematocrit 43.1 % (42.0-52.0); Hemoglobin 14.4 g/dL (11.7-16.6); Lymphocytes # 0.9 10^3/uL (0.8-4.8); Lymphocytes % 10.9 %; Mean Corpuscular HGB Conc 33.4 g/dL (30.0-36.0); Mean Corpuscular Hemoglobin 28.5 pg (28.0-34.0); Mean Corpuscular Volume 85.3 fl (80-94); Mean Platelet Volume 10.1 fL (7.4-10.4); Monocytes # 0.6 10^3/uL (0.2-0.9); Monocytes % 7.2 %; Neutrophils # 6.84 10^3/uL (1.8-7.7); Neutrophils % 79.6 %; Nucleated Red Blood Cells % 0 %; Platelet Count 149 10^3/cmm (130-400); Red Blood Count 5.05 10^6/uL (4.1-5.3); Red Cell Distribution Width 12.7 % (12.1-15.1); White Blood Count 8.6 10^3/uL (4.0-10.0)
[2022-05-02 17:36] LABS: Add Urine Microscopic? NO; Charge for UA Resulting for Rev
[2022-05-02 17:37] LABS: Alanine Aminotransferase 11 U/L (0-41); Alkaline Phosphatase 94 U/L (40-130); Anion Gap 14.4 (5-19); Aspartate Amino Transferase 15 U/L (0-40); Blood Urea Nitrogen 13 mg/dL (8-23); Calcium 9.5 mg/dL (8.5-10.5); Carbon Dioxide 28 mmol/L (22-29); Chloride 105 mmol/L (98-107); Globulin 2.7 g/dL (1.3-4.6); Glucose 150 mg/dL (65-115); Osmolality Calculated 299 mOsm/kg (285-295); Potassium 4.4 mmol/L (3.5-5.1); Sodium 143 mmol/L (136-145); Total Bilirubin 0.3 mg/dL (0.15-1.2); Total Protein 6.7 g/dL (6.6-8.7)
[2022-05-02 17:40] LABS: Bilirubin Urine Neg (Negative); Blood Urine Neg (Negative); Glucose Urine UA Norm (Normal); Ketones Urine Negative (Negative); Leukocyte Esterase Urine Negative (Negative); Nitrate Urine Negative (Negative); Protein Urine Neg (Negative); Specific Gravity, Urine 1.005 (1.005-1.030); Urine Appearance Clear (CLEAR); Urine Color Yellow (Yellow); Urobilinogen Urine Neg (Negative); pH Urine 5 (5-7)
--- NOTE | 2022-05-02 18:10 | W.ED.GENADLT ---
HPI - General Adult General: Chief complaint: General Medical Stated complaint: Diabetic, blood sugar flux Time Seen by Provider: 05/02/22 18:10 History of Present Illness: 72-year-old male patient comes in today for complaints of low blood sugar. Patient reports feeling better at the time of the exam. Patient this morning got up and took his usual medications which was 28 units of Humalog. Patient taking 46 units of Lantus last night. Patient ate his normal breakfast and then went and got his flu vaccine. After getting home from getting his flu vaccine patient did report some mild confusion and his checked and noted that his blood sugars were running low. Blood sugar got as low as 60 even after treatment. Spouse then brought him into the ER. Patient denies any pain or discomfort. Patient reports no nausea or vomiting. Patient denies any cough or congestion. Patient has a history of arthritis, renal calculi, diabetes with neuropathy. Associated symptoms: Deny chest pain, dyspnea, headache(s), nausea, rash or vomiting Review of Systems Const: Denies: fever(s) Card: Denies: chest pain Resp: Denies: dyspnea GI: Denies: nausea, vomiting, diarrhea or constipation : Denies: flank pain, difficulty urinating or dysuria Musc: Denies: neck pain Skin/Breast: Denies: rash Neuro: Denies: headache(s) or lack of coordination Psych: Denies: depression PFSH ED PFSH: Medical History Bilateral renal stones BPH NOS w ur obs/LUTS COPD (chronic obstructive pulmonary disease) Degenerative arthritis of knee Diabetes High cholesterol Left ureteral calculus Family History Father Diabetes Other Stroke Social History Smoking and tobacco status: former smoker Alcohol intake: never Marital status: Current occupational status: retired History of recent travel: No Physical Exam Const: COMMON NORMALS: patient oriented x3 HENMT: COMMON NORMALS: normocephalic HEAD & SCALP: normocephalic THROAT: posterior oropharynx normal Neck/C-Spine: COMMON NORMALS: full ROM Chest: COMMONS NORMALS: normal palpation of entire chest wall Resp: COMMON NORMALS: normal respiratory effort and clear to auscultation bilaterally AUSCULTATION: clear to auscultation bilaterally Cardio: COMMON NORMALS: regular rate and regular rhythm RATE: regular rate RHYTHM: regular rhythm GI: COMMON NORMALS: Soft to palpation and non-tender PALPATION: Yes Soft to palpation : COMMON NORMALS: Yes no CVA tenderness BLADDER/KIDNEY EXAM: Yes no CVA tenderness Back/Pelvis: COMMON NORMALS: no CVA tenderness Neuro: COMMON NORMALS: patient oriented x3 Skin: COMMON NORMALS: no rashes or lesions noted GENERAL SKIN EXAM: no rashes or lesions noted Course Vital Signs: Vital signs: Vital Signs Temperature 97.5 F L 05/02/22 15:40 Pulse Rate 66 05/02/22 15:40 Respiratory Rate 16 05/02/22 15:40 Blood Pressure 149/77 05/02/22 15:40 Pulse Oximetry 97 05/02/22 15:40 Oxygen Delivery Me thod 05/02/22 15:40 MDM - General Adult Medical Decision Making 72-year-old male patient comes in today for complaints of low blood sugar. On exam patient blood glucose reading was 218. Lungs are clear to auscultation. Abdomen soft nontender. Vital signs were normal. Patient did his normal routine today except for going and getting his flu shot. After getting his flu shot it was noted the patient's blood sugar was running low as 63. Differential diagnosis includes vaccine reaction, hypoglycemia due to diabetes mellitus, viral syndrome, electrolyte imbalance. Laboratory values were unremarkable. Patient's glucose on lab was 150. Electrolytes were normal. CBC was normal. Urinalysis was unremarkable. Believe patient probably had a hypoglycemic event may be due to the increase activity today. Recommend patient continue with routine plan and follow-up with primary care return to ER for worsening symptoms. Patient reported understanding and agreed to plan. Lab Data : 05/02/22 16:53 05/02/22 16:53 Laboratory Results WBC 8.6 10^3/uL (4.0-10.0) 05/02/22 16:53 RBC 5.05 10^6/uL (4.1-5.3) 05/02/22 16:53 Hgb 14.4 g/dL (11.7-16.6) 05/02/22 16:53 Hct 43.1 % (42.0-52.0) 05/02/22 16:53 MCV 85.3 fl (80-94) 05/02/22 16:53 MCH 28.5 pg (28.0-34.0) 05/02/22 16:53 MCHC 33.4 g/dL (30.0-36.0) 05/02/22 16:53 RDW 12.7 % (12.1-15.1) 05/02/22 16:53 Plt Count 149 10^3/cmm (130-400) 05/02/22 16:53 MPV 10.1 fL (7.4-10.4) 05/02/22 16:53 Neut % (Auto) 79.6 % 05/02/22 16:53 Lymph % (Auto) 10.9 % 05/02/22 16:53 Granite % (Auto) 7.2 % 05/02/22 16:53 Eos % (Auto) 0.8 % 05/02/22 16:53 Baso % (Auto) 0.6 % 05/02/22 16:53 Neut # (Auto) 6.84 10^3/uL (1.8-7.7) 05/02/22 16:53 Lymph # (Auto) 0.9 10^3/uL (0.8-4.8) 05/02/22 16:53 Granite # (Auto) 0.6 10^3/uL (0.2-0.9) 05/02/22 16:53 Eos # (Auto) 0.1 10^3/uL (0.0-0.8) 05/02/22 16:53 Baso # (Auto) 0.1 10^3/uL (0.0-0.1) 05/02/22 16:53 Nucleated RBC % (auto) 0 % 05/02/22 16:53 Nucleated RBCs # 0.0 /100WBC 05/02/22 16:53 Sodium 143 mmol/L (136-145) 05/02/22 16:53 Potassium 4.4 mmol/L (3.5-5.1) 05/02/22 16:53 Chloride 105 mmol/L (98-107) 05/02/22 16:53 Carbon Dioxide 28 mmol/L (22-29) 05/02/22 16:53 Anion Gap 14.4 (5-19) 05/02/22 16:53 BUN 13 mg/dL (8-23) 05/02/22 16:53 Creatinine 1.0 mg/dL (0.7-1.2) 05/02/22 16:53 GFR Calculation Not Reportable 05/02/22 16:53 Glucose 150 mg/dL (65-115) H 05/02/22 16:53 Calculated Osmolality 299 mOsm/kg (285-295) H 05/02/22 16:53 Calcium 9.5 mg/dL (8.5-10.5) 05/02/22 16:53 Total Bilirubin 0.3 mg/dL (0.15-1.2) 05/02/22 16:53 AST 15 U/L (0-40) 05/02/22 16:53 ALT 11 U/L (0-41) 05/02/22 16:53 Alkaline Phosphatase 94 U/L (40-130) 05/02/22 16:53 Total Protein 6.7 g/dL (6.6-8.7) 05/02/22 16:53 Albumin 4.0 g/dL (3.5-5.2) 05/02/22 16:53 Globulin 2.7 g/dL (1.3-4.6) 05/02/22 16:53 Urine Color Yellow (Yellow) 05/02/22 16:09 Urine Appearance Clear (CLEAR) 05/02/22 16:09 Urine pH 5 (5-7) 05/02/22 16:09 Ur Specific [place] 1.005 (1.005-1.030) 05/02/22 16:09 Urine Protein Neg (Negative) 05/02/22 16:09 Urine Glucose (UA) Norm (Normal) 05/02/22 16:09 Urine Ketones Negative (Negative) 05/02/22 16:09 Urine Blood Neg (Negative) 05/02/22 16:09 Urine Nitrate Negative (Negative) 05/02/22 16:09 Urine Bilirubin Neg (Negative) 05/02/22 16:09 Urine Urobilinogen Neg mg/dL (Negative) 05/02/22 16:09 Ur Leukocyte Esterase Negative (Negative) 05/02/22 16:09 Discharge Plan Discharge Patient Disposition: Home Clinical Impression: Hypoglycemia associated with diabetes Condition: Stable Prescriptions: No Action atenolol 100 mg tablet 100 mg PO DAILY@09 albuterol sulfate 90 mcg/actuation aerosol powdr breath activated 3 inh INHALATION QID PRN (Reason: Shortness Of Breath) simvastatin 40 mg tablet 20 mg PO DAILY@09 omeprazole 20 mg capsule,delayed release(DR/EC) 20 mg PO BID@,18 fluoxetine 20 mg capsule 20 mg PO DAILY@09 Spiriva Respimat 2.5 mcg/actuation mist 2 inh INHALATION DAILY@18 metformin 1,000 mg tablet 1,000 mg PO BID@,18 Metamucil 3.4 gram/5.4 gram powder 1 tbsp PO BID PRN Rx Instructions: mix into at least 8 oz of water or juice before administering amlodipine 5 mg tablet 5 mg PO DAILY sildenafil 100 mg tablet 20 - 100 mg PO PRN Rx Instructions: administer 30 minutes to 4 hours before activity meloxicam 15 mg tablet 15 mg PO DAILY dutasteride 0.5 mg capsule 0.5 mg PO DAILY Qty: 90 3RF tamsulosin 0.4 mg capsule 0.4 mg PO DAILY Qty: 90 3RF Lantus U-100 Insulin 100 unit/mL solution 46 unit SUBCUT BEDTIME ascorbic acid (vitamin C) [Vitamin C] 500 mg Tablet 500 mg PO DAILY@09 Humulin R Regular U-100 Insuln 100 unit/mL Solution See Rx Instructions .ROUTE .COMPLEX Rx Instructions: 18 units every am and 10 units before dinner losartan 100 mg tablet 50 mg PO DAILY cholecalciferol (vitamin D3) [Vitamin D3] 25 mcg (1,000 unit) Capsule 2,000 unit PO DAILY@18 Centrum Silver 0.4-300-250 mg-mcg-mcg Tablet 1 tab PO DAILY@09 hydrocodone-acetaminophen [[place]] 5-325 mg tablet 1 tab PO Q8H PRN (Reason: pain) Qty: 20 0RF lactulose 10 gram/15 mL (15 mL) solution 30 ml PO TID PRN (Reason: constipation) Qty: 1440 0RF docusate sodium [Colace] 100 mg capsule 100 mg PO BID Qty: 30 0RF Discharge Orders: Discharge ED (Routine); Ordered 05/02/22 Ordered By: Johnie Chirinos Referrals: Clarence Bradford MD [Primary Care Provider] - Discharge Diet: Usual diet Discharge Activity: Resume usual activity Patient Instructions: Hypoglycemia in a Person with Diabetes (ED) Activity Restrictions/Additional Instructions: Continue routine care. Follow-up with primary care as needed. Return to ER for worsening symptoms or new concerns. Coding Level of Care Code ED [employer] Electric[employer] Apprentice for Josh Yee
[2022-05-02 18:20] LABS: Glucose Point of Care 218 mg/dL (70-110)
[2022-05-02 18:21] VITALS: BP 161/76; PULSE 66; O2SAT 97
== END 2022-05-02 18:30 | disposition home or self-care (01) ==
PROVIDERS: Family Medicine; Emergency Provider Nurse Practitioner Family; PCP Family Medicine
DX: E11.649 Type 2 diabetes mellitus with hypoglycemia without coma (principal); Z79.4 Long term (current) use of insulin; Z87.891 Personal history of nicotine dependence; J44.9 Chronic obstructive pulmonary disease, unspecified
CPT/HCPCS: 36415; 36416; 80053; 81003; 82962; 85025; 99283

== ENCOUNTER 2022-05-26 13:37 | Emergency (ER) | payer MEDICARE, OTHER, SELFPAY ==
[2022-05-26] VITALS (10 sets, daily range): BP systolic 140–162; BP diastolic 70–96; PULSE 59–70; RESP 15–20; O2SAT 92–97
--- NOTE | 2022-05-26 13:46 | CT_ITS ---
WS: [id number] CT HEAD TECHNIQUE: Noncontrast CT of the head obtained from the skullbase to the vertex. CLINICAL INFORMATION: AMS COMPARISON: None. DLP: 1175.[address] scans at [facility] use at least one of these dose optimization techniques: automated e xposure control; mA and/or kV adjustment per patient size (includes targeted exams where dose is matc hed to clinical indication); or iterative reconstruction. FINDINGS: No evidence of intracranial hemorrhage or mass effect. Ventricular system and basal cisterns are [place] nt. Mild small vessel changes with moderate parenchymal volume loss. No extra-axial fluid collections . No evidence of mass or mass effect. Mild mucosal thickening in the ethmoid air cells. Paranasal sinuses otherwise well aerated. Mastoid a ir cells are well aerated. Normal posterior nasopharynx. Mild intracranial vascular calcification. CT/CT head wo con* [id number] IMPRESSION: 1. No evidence of intracranial hemorrhage or mass effect. 2. Mild small vessel changes. Moderate parenchymal volume loss. 3. No acute intracranial findings.
--- NOTE | 2022-05-26 14:07 | ED_ITS ---
HPI - Neuro Symptoms/Deficit General: Chief Complaint: Neuro Symptoms/Deficit Stated Complaint: Possible mini stroke Time Seen by Provider: 05/26/22 13:45 Source: patient and family Mode of arrival: ambulatory History of Present Illness: 72-year-old male presents to the emergency room with episodes of nonresponsiveness. He had 2 of these he was here few weeks ago and he will suddenly have an episode where he is nonresponsive for several minutes then will slowly improve he will be verbally responsive after that but it takes an hour to an hour and a half before he is seems completely to be back to normal from start to finish of these episodes. He is diabetic they checked blood sugar last time and it was negative. No recent head trauma no history of any head trauma no history of any seizures. They checked his blood sugar today and it was essentially normal in the 150s to 160s. Has not recently been ill fever sweats chills cough or cold he has some chronic neck and back pain which remains unchanged no recent change in medications. No chest or abdominal pain no cough or shortness of breath a little unclear whether or not he has any vision changes associated with this as best he can report none immediately befor e or as he seems to recover recovered from that he says speech is always been normal and he has not had any difficulties swallowing. He has not previously had stroke or known coronary artery disease. There is record of an old carotid duplex from November 2019 which showed bilateral 50% stenosis but none was critical. He has not had follow-up since then. Onset (ago): week(s) Timing confirmed by: spouse History of same: Yes Severity: moderate Quality: weak Relieving factors: none Exacerbating factors: none Context: sudden onset Associated symptoms: Reports malaise and weakness; Deny chest pain, cough, diaphoresis, fevers/chills, headache(s), anorexia, nausea, seizures, short of breath, syncope, tingling, vertigo or vomiting Treatments Prior to Arrival: none Review of Systems Const: Reports: malaise; Denies: diaphoresis ENMT: Denies: throat pain, ear or mastoid pain, nasal discharge or nasal congestion Card: Denies: chest pain or syncope Resp: Denies: dyspnea, productive cough or non-productive cough GI: Denies: nausea or vomiting : Denies: flank pain, dysuria, urinary frequency or urinary urgency Skin/Breast: Denies: rash or pruritus Neuro: Denies: headache(s) or vertigo PFSH ED PFSH: Medical History Bilateral renal stones BPH NOS w ur obs/LUTS COPD (chronic obstructive pulmonary disease) Degenerative arthritis of knee Diabetes High cholesterol Left ureteral calculus Family History Father Diabetes Other Stroke Social History Smoking and tobacco status: former smoker Alcohol intake: never Marital status: Current occupational status: retired History of recent travel: No NIH stroke score NIHSS: Level Of Consciousness - 1a: 0 Level Of Consciousness Questions - 1b: Both Correct Level Of Consciousness Commands - 1c: Both Correct Best Gaze - 2: Normal Visual [place] - 3: No Visual Loss Facial Palsy - 4: Normal Motor Arm Right - 5: No Drift Motor Arm Left - 5: No Drift Motor Leg Right - 6: No Drift Motor Leg Left - 6: No Drift Limb Ataxia - 7: Absent Sensory - 8: Normal Best Language - 9: No Aphasia Dysarthia - 10: Normal Extinction And Inattention - 11: 0 Score: Total Score: 0 Physical Exam Const: COMMON NORMALS: no acute distress GENERAL APPEARANCE: cooperative a nd comfortable ORIENTATION/CONSCIOUSNESS: Yes awake, Yes oriented to person, Yes oriented to place and Yes oriented to time HENMT: COMMON NORMALS: normocephalic, atraumatic, hearing grossly normal bilaterally, external ears normal, EAC's normal, TM's normal bilaterally, Normal nasal mucous membranes and turbinates present, moist oral mucous membranes and oropharynx normal HEAD & SCALP: normocephalic and atraumatic NOSE: Normal nasal mucous membranes and turbinates present EXTERNAL EAR: Yes external ears normal EXTERNAL AUDITORY CANAL: EAC's normal TYMPANIC MEMBRANE: TM's normal bilaterally Eye: COMMON NORMALS: Equal, round and reactive pupils present, EOMs intact bilaterally, conjunctivae normal and no scleral icterus CONJUNCTIVA: Yes conjunctivae normal PUPIL: Yes Equal, round and reactive pupils present Neck/C-Spine: COMMON NORMALS: full ROM, no lymphadenopathy, supple and no JVD Lymph: LYMPHATIC: no lymphadenopathy noted and no lymphedema noted Resp: COMMON NORMALS: normal respiratory effort, No retractions, No use of accessory muscles and clear to auscultation bilaterally AUSCULTATION: clear to auscultation bilaterally Cardio: COMMON NORMALS: no JVD, regular rate, regular rhythm and No murmurs present (Cardio) RATE: regular rate RHYTHM: regular rhythm GI: COMMON NORMALS: Soft to palpation and No hepatosplenomegaly present AUSCULTATION: Yes normoactive bowel sounds PALPATION: Yes Soft to palpation, No Tenderness to palpation present (GI), No Guarding due to palpation present (GI) and Yes No hepatosplenomegaly present Extremity: COMMON NORMALS: normal to inspection, capillary refill normal, no clubbing, cyanosis or edema, no calf tenderness and no pedal edema Neuro: SENSORIUM/ORIENTATION: Yes oriented to person, Yes oriented to place and Yes oriented to time Skin: COMMON NORMALS: no rashes or lesions noted GENERAL SKIN EXAM: no rashes or lesions noted Course Vital Signs: Vital signs: Vital Signs Pulse Rate 60 05/26/22 18:52 Respiratory Rate 17 05/26/22 18:52 Blood Pressure 152/81 05/26/22 18:52 Pulse Oximetry 97 05/26/22 18:52 Oxygen Delivery Me thod 05/26/22 14:02 MDM - Neuro Symptoms/Deficit Medical Decision Making Symptoms completely resolved. Reviewed his previous notes he had less than 50% stenosis. He has been having these for some time. He has an ongoing work-up in process. I think this point it be good to add high-dose statin and as well as increase to dual platelet therapy he is already taking aspirin on take Plavix and started on atorvastatin at 40 mg daily. No other findings could be that he is having partial complex seizures although he does not really seem to be very post ictal at the end of these episodes. Organ to discharge home set him up for neurology follow-up with a Medical Records I reviewed the patient's medical records. Lab Data I reviewed the patient's lab results. : 05/26/22 14:02 05/26/22 14:[address] 05/26/22 13:46 IMPRESSION: 1. No evidence of intracranial hemorrhage or mass effect. 2. Mild small vessel changes. Moderate parenchymal volume loss. 3. No acute intracranial findings. Head/Neck CTA 05/26/22 16:06 IMPRESSION: 1. No large artery occlusion or stenosis. IMPRESSION: 1. No large artery occlusion or stenosis. REFERENCES: NASCET CRITERIA. The degree of stenosis in the cervical segment of the internal carotid artery is based on NASCET criteria. Normal is no stenosis. Mild is less than 50% stenosis. Moderate is 50-69% stenosis. Severe is 70% to 99% stenosis. Total occlusion is no detectable patent lumen. Laboratory Results WBC 7.9 10^3/uL (4.0-10.0) 05/26/22 14:02 RBC 4.98 10^6/uL (4.1-5.3) 05/26/22 14:02 Hgb 14.5 g/dL (11.7-16.6) 05/26/22 14:02 Hct 42.6 % (42.0-52.0) 05/26/22 14:02 MCV 85.5 fl (80-94) 05/26/22 14:02 MCH 29.1 pg (28.0-34.0) 05/26/22 14:02 MCHC 34.0 g/dL (30.0-36.0) 05/26/22 14:02 RDW 12.6 % (12.1-15.1) 05/26/22 14:02 Plt Count 131 10^3/cmm (130-400) 05/26/22 14:02 MPV 10.0 fL (7.4-10.4) 05/26/22 14:02 Neut % (Auto) 70.5 % 05/26/22 14:02 Lymph % (Auto) 16.8 % 05/26/22 14:02 [place] % (Auto) 9.4 % 05/26/22 14:02 Eos % (Auto) 1.8 % 05/26/22 14:02 Baso % (Auto) 0.6 % 05/26/22 14:02 Neut # (Auto) 5.54 10^3/uL (1.8-7.7) 05/26/22 14:02 Lymph # (Auto) 1.3 10^3/uL (0.8-4.8) 05/26/22 14:02 [place] # (Auto) 0.7 10^3/uL (0.2-0.9) 05/26/22 14:02 Eos # (Auto) 0.1 10^3/uL (0.0-0.8) 05/26/22 14:02 Baso # (Auto) 0.1 10^3/uL (0.0-0.1) 05/26/22 14:02 Nucleated RBC % (auto) 0 % 05/26/22 14:02 Nucleated RBCs # 0.0 /100WBC 05/26/22 14:02 Sodium 143 mmol/L (136-145) 05/26/22 14:02 Potassium 3.8 mmol/L (3.5-5.1) 05/26/22 14:02 Chloride 104 mmol/L (98-107) 05/26/22 14:02 Carbon Dioxide 26 mmol/L (22-29) 05/26/22 14:02 Anion Gap 16.8 (5-19) 05/26/22 14:02 BUN 14 mg/dL (8-23) 05/26/22 14:02 Creatinine 1.2 mg/dL (0.7-1.2) 05/26/22 14:02 GFR Calculation Not Reportable 05/26/22 14:02 Glucose 55 mg/dL (65-115) L 05/26/22 14:02 POC Glucose 89 mg/dL (70-110) 05/26/22 18:20 Calculated Osmolality 294 mOsm/kg (285-295) 05/26/22 14:02 Lactic Acid 2.8 mmol/L (0.5-2.2) H 05/26/22 14:02 Lactic Acid (Sepsis) 1.5 mmol/L (0.5-2.2) 05/26/22 16:55 Calcium 9.6 mg/dL (8.5-10.5) 05/26/22 14:02 Total Bilirubin 0.2 mg/dL (0.15-1.2) 05/26/22 14:02 AST 15 U/L (0-40) 05/26/22 14:02 ALT 11 U/L (0-41) 05/26/22 14:02 Alkaline Phosphatase 86 U/L (40-130) 05/26/22 14:02 Ammonia 25 umol/L (16-60) 05/26/22 14:02 Total Protein 6.6 g/dL (6.6-8.7) 05/26/22 14:02 Albumin 4.1 g/dL (3.5-5.2) 05/26/22 14:02 Globulin 2.5 g/dL (1.3-4.6) 05/26/22 14:02 Lipase 7 U/L (13-60) L 05/26/22 14:02 Urine Color Yellow (Yellow) 05/26/22 15:30 Urine Appearance Clear (CLEAR) 05/26/22 15:30 Urine pH 5 (5-7) 05/26/22 15:30 Ur Specific [place] 1.025 (1.005-1.030) 05/26/22 15:30 Urine Protein Neg (Negative) 05/26/22 15:30 Urine Glucose (UA) Norm (Normal) 05/26/22 15:30 Urine Ketones Negative (Negative) 05/26/22 15:30 Urine Blood Neg (Negative) 05/26/22 15:30 Urine Nitrate Negative (Negative) 05/26/22 15:30 Urine Bilirubin Neg (Negative) 05/26/22 15:30 Urine Urobilinogen Norm mg/dL (Negative) 05/26/22 15:30 Ur Leukocyte Esterase Negative (Negative) 05/26/22 15:30 Serum Ketones Negative (Negative) 05/26/22 14:02 Discharge Plan Discharge Patient Disposition: Home Clinical Impression: Transient ischemic attack Condition: Stable Prescriptions: New Plavix 75 mg tablet 75 mg PO DAILY Qty: 30 0RF atorvastatin 40 mg tablet 40 mg PO DAILY Qty: 30 0RF No Action atenolol 100 mg tablet 100 mg PO DAILY albuterol sulfate 90 mcg/actuation aerosol powdr breath activated 3 inh INHALATION QID PRN (Reason: Shortness Of Breath) simvastatin 40 mg tablet 20 mg PO QPM omeprazole 20 mg capsule,delayed release(DR/EC) 20 mg PO BID@,18 fluoxetine 20 mg capsule 20 mg PO DAILY Spiriva Respimat 2.5 mcg/actuation mist 2 inh INHALATION DAILY@18 metformin 1,000 mg tablet 1,000 mg PO BID@09,18 Metamucil 3.4 gram/5.4 gram powder 1 tbsp PO BID PRN (Reason: Constipation) Rx Instructions: mix into at least 8 oz of water or juice before administering amlodipine 5 mg tablet 5 mg PO DAILY sildenafil 100 mg tablet 20 - 100 mg PO PRN Rx Instructions: administer 30 minutes to 4 hours before activity insulin glargine [Lantus U-100 Insulin] 100 unit/mL solution 46 unit SUBCUT BEDTIME ascorbic acid (vitamin C) [Vitamin C] 500 mg Tablet 500 mg PO DAILY@09 Humulin R Regular U-100 Insuln 100 unit/mL Solution See Rx Instructions .ROUTE .COMPLEX Rx Instructions: 28 units every am and 10 units before dinner losartan 100 mg tablet 50 mg PO QPM cholecalciferol (vitamin D3) [Vitamin D3] 25 mcg (1,000 unit) Capsule 2,000 unit PO QPM Centrum Silver 0.4-300-250 mg-mcg-mcg Tablet 1 tab PO DAILY aspirin 81 mg Tablet,Delayed Release (Dr/Ec) 81 mg PO DAILY tamsulosin 0.4 mg capsule 0.4 mg PO QPM Colace 100 mg capsule 100 mg PO BID PRN (Reason: Constipation) dutasteride 0.5 mg capsule 0.5 mg PO BEDTIME Discharge Orders: Discharge ED (Routine); Ordered 05/26/22 Ordered By: Valentin Garcia Referrals: Clarence Bradford MD [Primary Care Provider] - Discharge Diet: Usual diet Discharge Activity: Limit activity as instructed Patient Instructions: Opioid Safety, Pain Management Activity Restrictions/Additional Instructions: Continue aspirin daily start Plavix 75 mg daily also start atorvastatin 40 mg daily. Case management will make arrangements for you to see neurology for further evaluation. Coding Level of Care Code ED Warehouse Checker for Josh Fwjohann Exam Comprehensive
[2022-05-26 14:12] LABS: Basophils # 0.1 10^3/uL (0.0-0.1); Basophils % 0.6 %; Eosinophils # 0.1 10^3/uL (0.0-0.8); Eosinophils % 1.8 %; Hematocrit 42.6 % (42.0-52.0); Hemoglobin 14.5 g/dL (11.7-16.6); Lymphocytes # 1.3 10^3/uL (0.8-4.8); Lymphocytes % 16.8 %; Mean Corpuscular Hemoglobin 29.1 pg (28.0-34.0); Mean Corpuscular Volume 85.5 fl (80-94); Monocytes # 0.7 10^3/uL (0.2-0.9); Monocytes % 9.4 %; Neutrophils # 5.54 10^3/uL (1.8-7.7); Neutrophils % 70.5 %; Nucleated Red Blood Cells % 0 %; Platelet Count 131 10^3/cmm (130-400); Red Blood Count 4.98 10^6/uL (4.1-5.3); Red Cell Distribution Width 12.6 % (12.1-15.1); White Blood Count 7.9 10^3/uL (4.0-10.0)
[2022-05-26 14:24] LABS: Ketone (Acetest) Serum Negative (Negative)
[2022-05-26 14:26] LABS: Ammonia 25 umol/L (16-60); Lactic Sepsis W/Reflex 2.8 mmol/L (0.5-2.2)
[2022-05-26 14:33] LABS: Alanine Aminotransferase 11 U/L (0-41); Albumin Level 4.1 g/dL (3.5-5.2); Alkaline Phosphatase 86 U/L (40-130); Aspartate Amino Transferase 15 U/L (0-40); Blood Urea Nitrogen 14 mg/dL (8-23); Calcium 9.6 mg/dL (8.5-10.5); Carbon Dioxide 26 mmol/L (22-29); Chloride 104 mmol/L (98-107); Globulin 2.5 g/dL (1.3-4.6); Glucose 55 mg/dL (65-115); Lipase 7 U/L (13-60); Osmolality Calculated 294 mOsm/kg (285-295); Sodium 143 mmol/L (136-145); Total Bilirubin 0.2 mg/dL (0.15-1.2); Total Protein 6.6 g/dL (6.6-8.7)
[2022-05-26 14:35] LABS: Anion Gap 16.8 (5-19); Potassium 3.8 mmol/L (3.5-5.1)
[2022-05-26 15:36] LABS: Add Urine Microscopic? NO; Charge for UA Resulting for Rev
[2022-05-26 15:39] LABS: Bilirubin Urine Neg (Negative); Blood Urine Neg (Negative); Glucose Urine UA Norm (Normal); Ketones Urine Negative (Negative); Leukocyte Esterase Urine Negative (Negative); Nitrate Urine Negative (Negative); Protein Urine Neg (Negative); Specific Gravity, Urine 1.025 (1.005-1.030); Urine Appearance Clear (CLEAR); Urine Color Yellow (Yellow); Urobilinogen Urine Norm (Negative); pH Urine 5 (5-7)
[2022-05-26 15:52] LABS: Reflex Lactate Order REFLEX LACTIC ORDERD
--- NOTE | 2022-05-26 16:06 | CTR_ITS ---
PROCEDURE INFORMATION: Exam: CTA Head With Contrast, Arteriography Exam date and time: 05/26/2022 4:33 PM Age: 72 years old Clinical indication: Cognitive deficit; Altered mental status; Additional info: AMS, altered gait, HX carotid stenois TECHNIQUE: Imaging protocol: Computed tomographic angiography of the head with contrast. Exam focused on the arteries. 3D rendering (Not supervised by radiologist): MIP and/or 3D reconstructed images were created by the technologist. Radiation optimization: All CT scans at this facility use at least one of these dose optimization techniques: automated exposure control; mA and/or kV adjustment per patient size (includes targeted exams where dose is matched to clinical indication); or iterative reconstruction. Contrast material: OMNIPAQUE 350; Contrast volume: 95 ml; Contrast route: INTRAVENOUS (IV); COMPARISON: CT head wo con* [id number] 05/26/2022 2:41 PM RADIATION DOSE METRICS: Total DLP (mGy-cm): 1175.68 FINDINGS: ANTERIOR CIRCULATION: Right internal carotid artery: Calcified plaque in the cavernous right internal carotid artery without significant stenosis. Right middle cerebral artery: No occlusion or significant stenosis. No aneurysm. Right anterior cerebral artery: No occlusion or significant stenosis. No aneurysm. Left internal carotid artery: Calcified plaque in the cavernous left internal carotid artery without stenosis. Left middle cerebral artery: No occlusion or significant stenosis. No aneurysm. Left anterior cerebral artery: No occlusion or significant stenosis. No aneurysm. POSTERIOR CIRCULATION: Right vertebral artery: No occlusion or significant stenosis. No aneurysm. Left vertebral artery: No occlusion or significant stenosis. No aneurysm. Basilar artery: No occlusion or significant stenosis. No aneurysm. Right posterior cerebral artery: No occlusion or significant stenosis. No aneurysm. Left posterior cerebral artery: No occlusion or significant stenosis. No aneurysm. Brain: Moderate hypodensities in supratentorial periventricular and subcortical white matter, consistent with microangiopathy. No intracranial hemorrhage. Cerebral ventricles: No ventriculomegaly. Orbital cavities: Cataract surgery. Bones/joints: Unremarkable. No acute fracture. Soft tissues: Unremarkable. PROCEDURE INFORMATION: Exam: CTA Neck With Contrast Exam date and time: 05/26/2022 4:33 PM Age: 72 years old Clinical indication: Cognitive deficit; Altered mental status; Additional info: AMS, altered gait, HX carotid stenois TECHNIQUE: Imaging protocol: Computed tomographic angiography of the neck with contrast. 3D rendering (Not supervised by radiologist): MIP and/or 3D reconstructed images were created by the technologist. Radiation optimization: All CT scans at this facility use at least one of these dose optimization techniques: automated exposure control; mA and/or kV adjustment per patient size (includes targeted exams where dose is matched to clinical indication); or iterative reconstruction. Contrast material: OMNIPAQUE 350; Contrast volume: 95 ml; Contrast route: INTRAVENOUS (IV); COMPARISON: CT head wo con* [id number] 05/26/2022 2:41 PM RADIATION DOSE METRICS: Total DLP (mGy-cm): 1175.68 FINDINGS: Right common carotid artery: No stenosis. No dissection or occlusion. Right internal carotid artery: Mild calcified plaque in the proximal right internal carotid artery with 0% stenosis. Right external carotid artery: No occlusion or stenosis of the origin. Left common carotid artery: No stenosis. No dissection or occlusion. Left internal carotid artery: No stenosis of the extracranial segment. No dissection or occlusion. Left external carotid artery: No occlusion or stenosis of the origin. Right vertebral artery: No stenosis. No dissection or occlusion. Left vertebral artery: No stenosis. No dissection or occlusion. Soft tissues: Normal. No significant soft tissue swelling. Bones/joints: No acute fracture. CT/CT angio headneck* [id number] IMPRESSION: 1. No large artery occlusion or stenosis. IMPRESSION: 1. No large artery occlusion or stenosis. REFERENCES: NASCET CRITERIA. The degree of stenosis in the cervical segment of the internal carotid artery is based on NASCET criteria. Normal is no stenosis. Mild is less than 50% stenosis. Moderate is 50-69% stenosis. Severe is 70% to 99% stenosis. Total occlusion is no detectable patent lumen.
[2022-05-26 17:38] LABS: Lactic Acid level (Lactate) 1.5 mmol/L (0.5-2.2)
[2022-05-26 18:24] LABS: Glucose Point of Care 89 mg/dL (70-110)
--- NOTE | 2022-05-27 10:34 | DCPLANNER ---
Addendum entered by Lynnette Diaz 07/28/22 10:45: Patient had a follow up appointment scheduled with neurology - patient did attend appointment. Addendum entered by Lynnette Diaz 06/30/22 08:15: Patient has a follow up appointment scheduled for Monday, July 11, [address] Reyes at neurology. Clinic will call patient with appointment information. Original Note: call center operations manager had message to schedule a follow up appointment for patient with neurology. call center operations manager sent patients information to the front office staff at neurology. Patients information will be printed and reviewed. Clinic will call patient with appointment information.
== END 2022-05-26 18:45 | disposition home or self-care (01) ==
PROVIDERS: Emergency Provider Family Medicine; PCP Family Medicine
DX: G45.9 Transient cerebral ischemic attack, unspecified (principal); Z79.84 Long term (current) use of oral hypoglycemic drugs; Z79.82 Long term (current) use of aspirin; Z79.4 Long term (current) use of insulin; J44.9 Chronic obstructive pulmonary disease, unspecified; E11.9 Type 2 diabetes mellitus without complications; Z87.891 Personal history of nicotine dependence
CPT/HCPCS: 36416; 70450; 70496; 70498; 80053; 81003; 82009; 82140; 82962; 83605; 83690; 85025; 99285; Q9967

== ENCOUNTER → 2022-07-11 11:28 | Outpatient (BNVA) | payer MEDICARE, OTHER, SELFPAY | PROVIDERS: PCP Family Medicine; Referring Provider Family Medicine; Visit Provider Specialist | DX: R56.9 Unspecified convulsions (principal); E11.40 Type 2 diabetes mellitus with diabetic neuropathy, unspecified; Z79.4 Long term (current) use of insulin; Z79.84 Long term (current) use of oral hypoglycemic drugs | CPT/HCPCS: 96116; 99205 ==

== ENCOUNTER → 2022-08-09 15:47 | Outpatient (BNVA) | payer MEDICARE, OTHER, SELFPAY | PROVIDERS: PCP Family Medicine; Visit Provider Orthopaedic Surgery | DX: M47.814 Spondylosis without myelopathy or radiculopathy, thoracic region (principal); M81.0 Age-related osteoporosis without current pathological fracture; M48.07 Spinal stenosis, lumbosacral region | CPT/HCPCS: 72070; 72110; 99204 ==

== ENCOUNTER 2022-08-18 14:55 | Outpatient (CLI) | payer MEDICARE, OTHER, SELFPAY ==
--- NOTE | 2022-08-18 15:15 | MR_ITS ---
WS: [id number] MRI BRAIN WITHOUT CONTRAST HISTORY: I99.8 - Other disorder of circulatory system COMPARISON: CT head 05/26/2022 TECHNIQUE: Diffusion imaging, multiplanar T1, T2 and FLAIR imaging obtained. Diffusion-weighted imaging is normal. Mild small vessel ischemic changes in the periventricular and s ubcortical white matter. Small prior infarct along the inferior LEFT occipital lobe. No additional infarct or hemorrhage. Ventricles and extra-axial spaces are normal. No inferior displacement of cerebellar tonsils. The sella turcica and pituitary gland are unremarkabl e. Dural venous sinuses and [place] demonstrate no abnormality on this unenhanced studies. Paranasal sinuses: Clear. Mastoid air cells: Normal. Calvarium and scalp: Intact. MR/MR head wo con* [id number] IMPRESSION: 1. Normal diffusion-weighted imaging. 2. Remote small lacunar infarct inferior LEFT occipital lobe. 3. Mild small vessel ischemic disease.
== END 2022-08-18 14:56 | disposition home or self-care (01) ==
LOC: RAD 14:58
PROVIDERS: PCP Family Medicine; Visit Provider Specialist
DX: I99.8 Other disorder of circulatory system (principal)
CPT/HCPCS: 70551

== ENCOUNTER 2022-08-22 05:40 | Day surgery (SDC) | payer MEDICARE, OTHER, SELFPAY ==
[2022-08-17 10:43] VITALS: BMI 26.2
--- NOTE | 2022-08-17 11:01 | ANES.PREANE2 ---
Pre-Anesthetic Assessment Height/Weight: Height 1.8 m Weight 85.275 kg Preop Diagnosis: Large obstructing left proximal ureteral stone Operation Date: 08/22/22 14:30 Proposed Procedures p Lumbar Laminectomy for implantation of neurostimulator paddle l5/s1 13087/58827/m54.9(Not Applicable) - Ajith Hill DO Familial anesthetic complications: None Social No alcohol and No tobacco Exam alert, oriented x 3, clear to auscultation bilaterally and regular rate & rhythm Airway Mallampati: Class III Dentition: other (no teeth) Pulmonary Chronic Obstructive Pulmonary Disease CV/HEM Hypertension and Peripheral Vascular Disease None reported Hepatic None reported GI Gastroesophageal Reflux Disease Metabolic Diabetes Mellitus and Hyperlipidemia Musc/skel Lower Back Pain and Osteoarthritis/DJD Neuropsych Seizure (possible seizure back in may) Anesthetic Plan ASA status: 3 Anesthesia: General Risk of > 500 ml blood loss (7ml/kg in children): No Medications/Allergies Home Medications Medication Instructions Recorded Confirmed Last Taken Type albuterol sulfate 90 mcg/actuation 3 inh inhalation QID PRN Shortness 09/20/19 08/17/22 07/12/20 History breath activated powder inhaler Of Breath atenolol 100 mg tablet 100 mg PO DAILY 09/20/19 08/17/22 08/17/22 History fluoxetine 20 mg capsule 20 mg PO DAILY 09/20/19 08/17/22 08/17/22 History metformin 1,000 mg tablet 1,000 mg PO BID@09/20/19 08/17/22 08/17/22 History omeprazole 20 mg capsule,delayed 20 mg PO BID@09/20/19 08/17/22 08/17/22 History release simvastatin 40 mg tablet 20 mg PO QPM 09/20/19 08/17/22 08/16/22 History tiotropium bromide 2.5 2 inh inhalation DAILY@09/20/19 08/17/22 08/16/22 History mcg/actuation mist for inhalation (Spiriva Respimat) ascorbic acid (vitamin C) 500 mg 500 mg PO DAILY@09 07/10/20 08/17/22 08/16/22 History tablet (Vitamin C) cholecalciferol (vitamin D3) 25 2,000 unit PO QPM 07/10/20 08/17/22 08/16/22 History mcg (1,000 unit) capsule (Vitamin D3) insulin glargine 100 unit/mL 46 unit SUBCUT BEDTIME 07/10/20 08/17/22 08/16/22 History subcutaneous solution (Lantus U-100 Insulin) insulin regular human 100 unit/mL See Rx Instructions .Route .COMPLEX 07/10/20 08/17/22 08/17/22 History injection solution (Humulin R Regular U-100 Insulin) losartan 100 mg tablet 50 mg PO QPM 07/10/20 08/17/22 08/16/22 History cgcmuvvh-yje-ulkhi acid 0.4 1 tab PO DAILY 07/10/20 08/17/22 08/17/22 History mg-lycopene 300 mcg-lutein 250 mcg tablet (Centrum Silver) amlodipine 5 mg tablet 5 mg PO DAILY 12/21/21 08/17/22 08/17/22 History psyllium husk 3.4 gram/5.4 gram 1 tbsp PO BID PRN Constipation 12/21/21 08/17/22 Unknown History oral powder (Metamucil) aspirin 81 mg tablet,delayed 81 mg PO DAILY 05/26/22 08/17/22 08/16/22 History release docusate sodium 100 mg capsule 100 mg PO BID PRN Constipation 05/26/22 08/17/22 08/16/22 History (Colace) dutasteride 0.5 mg capsule 0.5 mg PO BEDTIME #90 caps 06/20/22 08/17/22 08/16/22 Rx tamsulosin 0.4 mg capsule See Rx Instructions .Route 06/20/22 08/17/22 08/16/22 Rx .COMPLEX #90 caps Allergies Allergy/AdvReac Type Severity Reaction Status Date / Time aspirin Allergy unknown Verified 08/17/22 10:35 [facility] Anesthesia Medical History Bilateral renal stones BPH NOS w ur obs/LUTS COPD (chronic obstructive pulmonary disease) Degenerative arthritis of knee Diabetes High cholesterol Left ureteral calculus Family History Father Diabetes Other Stroke Social History Smoking and tobacco status: former smoker Alcohol intake: never Marital status: Current occupational status: retired History of recent travel: No Data Anesthesia Cardiac Studies: No Data to Display
--- NOTE | 2022-08-17 11:04 | ECG_ITS ---
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 Measurements Intervals [place] Rate: 60 P: 56 ND: 135 QRS: 28 QRSD: 96 T: 47 QT: 408 QTc: 411 Interpretive Statements SINUS RHYTHM Compared to ECG 08/24/2018 08:52:30 Sinus bradycardia no longer present Electronically Signed On 08-17-2022 21:46:36 [employer] by Rylie Marquez M.D. [email or web address][email or web address] [email or web address] medical [id number]
[2022-08-17 11:30] LABS: Anion Gap 13.3 (5-19); Blood Urea Nitrogen 14 mg/dL (8-23); Calcium 9.2 mg/dL (8.5-10.5); Carbon Dioxide 25 mmol/L (22-29); Chloride 105 mmol/L (98-107); Glucose 178 mg/dL (65-115); Osmolality Calculated 293 mOsm/kg (285-295); Potassium 4.3 mmol/L (3.5-5.1); Sodium 139 mmol/L (136-145)
[2022-08-22] VITALS (11 sets, daily range): BP systolic 138–174; BP diastolic 68–86; PULSE 57–62; RESP 14–18; TEMP 36.1–36.2; O2SAT 92–100
--- NOTE | 2022-08-22 | XR_ITS ---
WS: [id number] INTRAOPERATIVE TECHNIQUE: 3 Spot fluoroscopic images for intraoperative purposes. FLUOROSCOPY TIME: 88.5 seconds CLINICAL INFORMATION: [facility] COMPARISON: None. FINDINGS: Dorsal spinal stimulator projected over the mid thoracic spine. XR/XR thoracic spine 2V [id number] IMPRESSION: Images obtained for intraoperative purposes.
[2022-08-22] MEDS: sodium chloride 0.9% 1,000 ML 30 ML IV (06:05)
[2022-08-22 06:07] LABS: Glucose Point of Care 363 mg/dL (70-110)
--- NOTE | 2022-08-22 06:46 | W.PM.OPSUD ---
Surgery/Procedure H&P Update DATE OF PROCEDURE: August 22, 2022 DATE H&P PERFORMED: 08/09/22 H&P UPDATE INFORMATION: I have reviewed H&P completed within last 30 days, I have examined patient prior to procedure and No changes to prior documentation PREOP DIAGNOSIS: Chronic pain syndrome, peripheral neuropathy PLANNED PROCEDURE: Operation Date: 08/22/22 07:00 Proposed Procedures p Lumbar Laminectomy for implantation of neurostimulator paddle l5/s1 53254/16752/m54.9(Not Applicable) - Ajith Hlil DO
[2022-08-22] MEDS: insulin regular-human 100 units/1 mL 10 UNIT IVP (06:47)
[2022-08-22 07:06] LABS: Glucose Point of Care 354 mg/dL (70-110)
[2022-08-22] MEDS: ceFAZolin 2,000 MG in sodium chloride 0.9% (plus) 50 ML 100 MG IV (07:06)
--- NOTE | 2022-08-22 07:33 | P.ANESUD_ITS ---
Pre-Anesthetic Update Pre-Anesthetic Assessment: Date of Surgery/Procedure: 08/22/22 Preop Gwen gnosis: Chronic pain syndrome, peripheral neuropathy Proposed Procedure: Operation Date: 08/22/22 07:00 Proposed Procedures p Lumbar Laminectomy for implantation of neurostimulator paddle l5/s1 98830/45398/m54.9(Not Applicable) - Ajith Hill, DO Any changes to Pre-Anesthetic Assessment?: No Last Intake: Intake Last Liquid Date 08/21/22 Last Liquid Time 22:30 Last Solid Date 08/21/22 Last Solid Time 22:30 Vitals: Temperature 97 F L 08/22/22 05:57 Temperature Source Temporal Artery S can 08/22/22 05:57 Pulse Rate 60 08/22/22 05:57 Respiratory Rate 18 08/22/22 05:57 Blood Pressure 174/86 08/22/22 05:57 Blood Pressure Deidra n 115 08/22/22 05:57 Pulse Oximetry 98 08/22/22 05:57 Oxygen Delivery Me thod 08/22/22 05:57 Exam: Pre-Anes Outpt Exam: alert, oriented x 3, clear to auscultation bilaterally and regular rate & rhythm Cardiac Studies: No Data to Display
--- NOTE | 2022-08-22 08:55 | P.OP_ITS ---
Operative Report Date of procedure: August 22, 2022 Pre-op diagnosis: Preop Diagnosis Chronic pain syndrome, peripheral neuropathy Post-op diagnosis: same Procedure done: 1. Placement of neurostimulator 2. Placement of battery for neurostimulator Surgeon: Ajith Hill Student Development Dean: Axel Loo Student Development Dean: The certified surgical first assistant, Axel Loo, JIMI was needed for his expertise under the microscope. He was important and necessary throughout the procedure to complete in a safe and timely manner. He assisted with patient positioning prepping and draping tissue retraction suctioning of the operative field prot ection of the dural sac and tissue closure Estimated blood loss (mL): 50 Procedure: 1. Placement of neurostimulator 2. Placement of battery for neurostimulator Patient was brought to the operative suite after undergoing anesthesia was placed in the prone position. All areas impingement well-padded. Skin incision was made over the thoracic spine. The C-arm was brought into count the number of vertebrae and localize the T8-9 level. This is where the laminectomy was done with a goal of placing the paddle at the top of T7. Skin tear is made subperiosteal dissection was made out to the transverse processes of T8 and T9. This was done bilaterally. Retractors were placed. Microscope was brought in and rongeur was used to take down the interspinous ligament. Drill was used to drill the lamina and Kerrison rongeur was used to take down more of the lamina. Ligamentum flavum was identified ligamentum flavum was split and the #2 Kerrison was used to open up the ligamentum flavum in order to provide access for the paddle. The trial paddle was inserted first and then the paddle was placed using C-arm guidance it was placed to the top of T7 covering all of T7 and the top of T8. As well as the interspace between T7 and T8. Paddle was sutured in the place. Once this was confirmed under C arm attention was then brought to placing the battery. Skin tear is made over the right flank. Subcu pocket was made using knife and Bovie. And then the wires were passed from the laminectomy site to the battery site. Using a tissue passer. Wires were placed and the battery checked at each of the 4 ports and then walked into position placed subcu. Then wounds were then closed in a layered fashion with 0 Vicryl 2-0 Vicryl Monocryl suture. Sterile dressings were applied patient was transferred to the PACU in stable condition.
[2022-08-22] MEDS: HYDROcodone-acetaminophen 5-325 mg Tablet 1 TAB PO (09:40)
--- NOTE | 2022-08-22 14:50 | ANE.PACU2 ---
Inpatient post-anesthesia follow up: Airway intact: Yes Vital signs: Temperature 97.1 F Pulse Rate 62 Respiratory Rate 18 Blood Pressure 145/84 Pulse Oximetry 92 Oxygen Delivery Me thod Room Air Oxygen Flow Rate 6 Fraction of Inspir ed Oxygen Hydration adequate: Yes Nausea and vomiting: No Pain level: 3 Mental status: Baseline
== END 2022-08-22 09:58 | disposition home or self-care (01) ==
PROVIDERS: PCP Family Medicine; Visit Provider Orthopaedic Surgery
PROC: (CPT 63655; principal; 2022-08-22 07:00)
DX: G89.4 Chronic pain syndrome (principal); J44.9 Chronic obstructive pulmonary disease, unspecified; K21.9 Gastro-esophageal reflux disease without esophagitis; I10 Essential (primary) hypertension; I73.9 Peripheral vascular disease, unspecified; E11.9 Type 2 diabetes mellitus without complications; E78.5 Hyperlipidemia, unspecified; M19.90 Unspecified osteoarthritis, unspecified site; Z79.4 Long term (current) use of insulin; N40.1 Benign prostatic hyperplasia with lower urinary tract symptoms; N13.8 Other obstructive and reflux uropathy; Z87.891 Personal history of nicotine dependence
CPT/HCPCS: 63655; 63685; 36415; 36416; 72070; 76000; 80048; 82962; 93005; C1778; C1820; J0690; J1100; J1815; J2250; J2405; J2704; J2710; J3010; J3490; J7030

== ENCOUNTER → 2022-09-01 10:55 | Outpatient (BNVA) | payer MEDICARE, OTHER, SELFPAY | PROVIDERS: PCP Family Medicine; Visit Provider Physician Assistant | DX: Z98.890 Other specified postprocedural states (principal) | CPT/HCPCS: 99024 ==

== ENCOUNTER → 2022-09-09 12:39 | Outpatient (BNVA) | payer MEDICARE, OTHER, SELFPAY | PROVIDERS: PCP Family Medicine; Visit Provider Specialist | DX: G31.84 Mild cognitive impairment of uncertain or unknown etiology (principal) | CPT/HCPCS: 96116; 99213 ==

== ENCOUNTER 2022-09-14 10:41 | Outpatient (CLI) | payer MEDICARE, OTHER, SELFPAY ==
--- NOTE | 2022-09-14 10:52 | USCV_ITS ---
Tesha Nehemiah Age: 72 Gender: M : 1950 Exam Date: 09/14/2022 11:04 Ordering Phys: Bucky Vieyra DO Technologist: Ricky Messer Exam Location: [facility] – [place] Indication: screening HISTORY: Diameter (cm) AP x Transverse x Length Velocity (cm/s) Waveform Prox Aorta: 2.10 x 1.84 x 119.20 Mid Aorta: 1.75 x 1.69 x 120.60 Distal Aorta: 1.60 x 1.55 x 81.80 Right Iliac Prox: 0.74 x 1.21 x 275.40 Left Iliac Prox: 0.93 x 1.08 x 119.10 Stent Prox Landing x x Aneurysmal Sac Max x x Lt Lat Sac Dim Rt Lat Sac Dim Stent Dist Landing x x Right Iliac Stent x x Left Iliac Stent x x Right Renal Art Left Renal Art FINDINGS: CONCLUSIONS No evidence of abdominal aortic or bilateral iliac aneurysm. Faraz Paris MD (Electronically Signed) Final Date: 14 September 2022 17:09 S
== END 2022-09-14 10:42 | disposition home or self-care (01) ==
LOC: RAD 10:44
PROVIDERS: PCP Family Medicine; Visit Provider Emergency Medicine Emergency Medical Services
DX: Z13.6 Encounter for screening for cardiovascular disorders (principal)
CPT/HCPCS: 76706

== ENCOUNTER 2022-10-25 11:03 | Emergency (ER) | payer MEDICARE, OTHER, SELFPAY ==
[2022-10-25] VITALS (7 sets, daily range): BP systolic 142–153; BP diastolic 64–73; PULSE 58–63; RESP 18–20; TEMP 36.3; O2SAT 90–97
--- NOTE | 2022-10-25 12:13 | ECG_ITS ---
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 Measurements Intervals [place] Rate: 59 P: 53 ME: 112 QRS: 44 QRSD: 90 T: 17 QT: 438 QTc: 436 Interpretive Statements SINUS BRADYCARDIA WITH SHORT ME INTERVAL Compared to ECG 08/17/2022 11:04:03 Short ME interval now present Sinus rhythm no longer present Electronically Signed On 10-25-2022 23:10:24 CDT by Rylie Marquez M.D. [id number]
--- NOTE | 2022-10-25 12:15 | XR_ITS ---
WS: [id number] EXAMINATION: XR chest 1V portable [id number] REASON FOR EXAM: dyspnea/cough COMPARISON: 08/24/2018 ORDER DATE: 10/25/2022 12:17 PM TECHNIQUE: A single, portable frontal chest x-ray was obtained. X-RAY FINDINGS: The lungs are clear. There are chronic parenchymal lung changes with some left basal atelectasis and a small focal anterior eventration of the right diaphragm. Spinal stimulator is seen terminating just below the aortic arch. Pleural spaces are clear. No pleural effusions or pneumothorax. Cardiomediastinal silhouette is unremarkable except for atherosclerotic aortic change.. No evidence f or pulmonary edema. Soft tissue and osseous structures are unremarkable. XR/XR chest 1V portable [id number] IMPRESSION: COPD. Minor left basal atelectasis. Spinal epidural stimulator noted.
[2022-10-25 12:36] LABS: Basophils % 0.6 %; Eosinophils # 0.2 10^3/uL (0.0-0.8); Eosinophils % 2.9 %; Hematocrit 36.7 % (42.0-52.0); Hemoglobin 12.2 g/dL (11.7-16.6); Lymphocytes # 1.1 10^3/uL (0.8-4.8); Lymphocytes % 22.2 %; Mean Corpuscular HGB Conc 33.2 g/dL (30.0-36.0); Mean Corpuscular Hemoglobin 27.4 pg (28.0-34.0); Mean Corpuscular Volume 82.5 fl (80-94); Mean Platelet Volume 9.8 fL (7.4-10.4); Monocytes # 0.4 10^3/uL (0.2-0.9); Monocytes % 7.8 %; Neutrophils # 3.28 10^3/uL (1.8-7.7); Neutrophils % 64.3 %; Nucleated Red Blood Cells % 0 %; Platelet Count 135 10^3/cmm (130-400); Red Blood Count 4.45 10^6/uL (4.1-5.3); Red Cell Distribution Width 12.6 % (12.1-15.1); White Blood Count 5.1 10^3/uL (4.0-10.0)
--- NOTE | 2022-10-25 12:47 | PC.NURSE ---
PT PLACED ON CONTINUOUS SPO2, NIBP, AND CM.
[2022-10-25 12:53] LABS: Alanine Aminotransferase 14 U/L (0-41); Albumin Level 3.4 g/dL (3.5-5.2); Alkaline Phosphatase 81 U/L (40-130); Anion Gap 12.6 (5-19); Aspartate Amino Transferase 15 U/L (0-40); Blood Urea Nitrogen 15 mg/dL (8-23); Carbon Dioxide 27 mmol/L (22-29); Chloride 102 mmol/L (98-107); Creatine Phosphokinase 36 U/L (39-308); Glucose 171 mg/dL (65-115); Osmolality Calculated 289 mOsm/kg (285-295); Potassium 4.6 mmol/L (3.5-5.1); Sodium 137 mmol/L (136-145); Total Bilirubin 0.4 mg/dL (0.15-1.2); Total Protein 6.4 g/dL (6.6-8.7)
[2022-10-25] MEDS: ipratropium-albuterol 3 mL Neb INHALATION (13:17)
[2022-10-25 13:26] LABS: Slide Review Slide Review Perform
--- NOTE | 2022-10-25 14:04 | ED_ITS ---
HPI - SOB/Dyspnea General: Chief Complaint: Asthma Stated Complaint: nalini low sent for xray Time Seen by Provider: 10/25/22 11:46 Source: patient Mode of arrival: ambulatory History of Present Illness: HPI Narrative: 72-year-old male presents emergency room complaining of shortness of breath difficulty breathing. He fell several days ago and hit his back on a shower stall. He did not strike his head there is no loss consciousness he felt like he had may be bruised or broken some ribs he was seen at a local clinic yesterday they had advised him this morning his D-dimer is elevated he presents emergency room on arrival here he is complaining of dyspnea. MD elicited complaint: shortness of breath and pain with inspiration Pertinent past history: COPD Onset (ago): day(s) Context: trauma/injury (Fall direct blow to the posterior chest wall) Timing: constant Severity: moderate Exacerbating factors: exertion, coughing and inspiration Relieving factors: oxygen and rest Known history of: COPD Associated symptoms: Deny abdominal pain, chest congestion, chest pain, cough, diaphoresis, dizziness, extremity pain, fever(s), hemoptysis, lightheadedness, myalgias, nausea, orthopnea, palpitations, paresthesias, polydipsia, polyuria, rash, sense of impending doom, syncope or vomiting Review of Systems Const: Denies: fever(s) or diaphoresis ENMT: Denies: throat pain, ear or mastoid pain, nasal discharge or nasal congestion Card: Denies: chest pain, palpitations, lightheadedness, syncope or orthopnea Resp: Denies: hemoptysis or chest congestion GI: Denies: abdominal pain, nausea or vomiting : Denies: flank pain, dysuria, urinary frequency or urinary urgency Musc: Denies: extremity pain Skin/Breast: Denies: rash or pruritus Neuro: Denies: dizziness Endo: Denies: polyuria or polydipsia PFSH ED PFSH: Medical History (Updated 10/25/22 @ 14:35 by Valentin Garcia DO) Asthma Bilateral renal stones BPH NOS w ur obs/LUTS COPD (chronic obstructive pulmonary disease) Degenerative arthritis of knee Diabetes High cholesterol Left ureteral calculus Family History Father Diabetes Other Stroke Social History Smoking and tobacco status: former smoker Alcohol intake: never Marital status: Current occupational status: retired Physical Exam Const: GENERAL APPEARANCE: cooperative and comfortable ORIENTATION/CONSCIOUSNESS: Yes awake, Yes oriented to person, Yes oriented to place and Yes oriented to time HENMT: COMMON NORMALS: normocephalic, atraumatic and hearing grossly normal bilaterally HEAD & SCALP: normocephalic and atraumatic Resp: COMMON NORMALS: normal respiratory effort and No use of accessory muscl es AUSCULTATION: wheezes and diminished lung sounds Cardio: COMMON NORMALS: regular rate, regular rhythm and No murmurs present (Cardio) RATE: regular rate RHYTHM: regular rhythm GI: COMMON NORMALS: Soft to palpation and No hepatosplenomegaly present AUSCULTATION: Yes normoactive bowel sounds PALPATION: Yes Soft to palpation, No Tenderness to palpation present (GI), No Guarding due to palpation present (GI) and Yes No hepatosplenomegaly present Extremity: COMMON NORMALS: normal to inspection, capillary refill normal, no clubbing, cyanosis or edema, no calf tenderness and no pedal edema Neuro: SENSORIUM/ORIENTATION: Yes oriented to person, Yes oriented to place and Yes oriented to time Skin: COMMON NORMALS: no rashes or lesions noted GENERAL SKIN EXAM: no faustino hes or lesions noted Course Vital Signs: Vital signs: Vital Signs Temperature 97.4 F L 10/25/22 11:04 Pulse Rate 63 10/25/22 14:30 Respiratory Rate 18 10/25/22 13:15 Blood Pressure 142/64 10/25/22 14:45 Pulse Oximetry 91 10/25/22 14:30 Oxygen Delivery Me thod 10/25/22 14:24 Oxygen Flow Rate 2 10/25/22 13:15 MDM - SOB/Dyspnea Medical Decision Making Labs imaging and EKG reviewed. Patient improved after steroids and nebulizers. Will discharge home DuoNebs every 4 hours as needed steroid taper follow-up with primary care doctor within the next 1 to 2 days if not improving or worsens return to the emergency room. Morning reevaluated patient prior to discharge at the bedside on room air he is satting anywhere from 90 to 95%. Medical Records I reviewed the patient's medical records. Lab Data I reviewed the patient's lab results. 10/25/22 12:25 10/25/22 12:25 Labs/Radiology: Radiology Impressions Chest X-Ray 10/25/22 12:15 IMPRESSION: COPD. Minor left basal atelectasis. Spinal epidural stimulator noted. Laboratory Results WBC 5.1 10^3/uL (4.0-10.0) 10/25/22 12:25 RBC 4.45 10^6/uL (4.1-5.3) 10/25/22 12:25 Hgb 12.2 g/dL (11.7-16.6) 10/25/22 12:25 Hct 36.7 % (42.0-52.0) L 10/25/22 12:25 MCV 82.5 fl (80-94) 10/25/22 12:25 MCH 27.4 pg (28.0-34.0) L 10/25/22 12:25 MCHC 33.2 g/dL (30.0-36.0) 10/25/22 12:25 RDW 12.6 % (12.1-15.1) 10/25/22 12:25 Plt Count 135 10^3/cmm (130-400) 10/25/22 12:25 MPV 9.8 fL (7.4-10.4) 10/25/22 12:25 Neut % (Auto) 64.3 % 10/25/22 12:25 Lymph % (Auto) 22.2 % 10/25/22 12:25 [place] % (Auto) 7.8 % 10/25/22 12:25 Eos % (Auto) 2.9 % 10/25/22 12:25 Baso % (Auto) 0.6 % 10/25/22 12:25 Neut # (Auto) 3.28 10^3/uL (1.8-7.7) 10/25/22 12:25 Lymph # (Auto) 1.1 10^3/uL (0.8-4.8) 10/25/22 12:25 [place] # (Auto) 0.4 10^3/uL (0.2-0.9) 10/25/22 12:25 Eos # (Auto) 0.2 10^3/uL (0.0-0.8) 10/25/22 12:25 Baso # (Auto) 0.0 10^3/uL (0.0-0.1) 10/25/22 12:25 Nucleated RBC % (auto) 0 % 10/25/22 12:25 Nucleated RBCs # 0.0 /100WBC 10/25/22 12:25 Sodium 137 mmol/L (136-145) 10/25/22 12:25 Potassium 4.6 mmol/L (3.5-5.1) 10/25/22 12:25 Chloride 102 mmol/L (98-107) 10/25/22 12:25 Carbon Dioxide 27 mmol/L (22-29) 10/25/22 12:25 Anion Gap 12.6 (5-19) 10/25/22 12:25 BUN 15 mg/dL (8-23) 10/25/22 12:25 Creatinine 1.0 mg/dL (0.7-1.2) 10/25/22 12:25 GFR Calculation Not Reportable 10/25/22 12:25 Glucose 171 mg/dL (65-115) H 10/25/22 12:25 Calculated Osmolality 289 mOsm/kg (285-295) 10/25/22 12:25 Calcium 9.0 mg/dL (8.5-10.5) 10/25/22 12:25 Total Bilirubin 0.4 mg/dL (0.15-1.2) 10/25/22 12:25 AST 15 U/L (0-40) 10/25/22 12:25 ALT 14 U/L (0-41) 10/25/22 12:25 Alkaline Phosphatase 81 U/L (40-130) 10/25/22 12:25 Creatine Kinase 36 U/L (39-308) L 10/25/22 12:25 Total Protein 6.4 g/dL (6.6-8.7) L 10/25/22 12:25 Albumin 3.4 g/dL (3.5-5.2) L 10/25/22 12:25 Globulin 3.0 g/dL (1.3-4.6) 10/25/22 12:25 Discharge Plan Discharge Patient Disposition: Home Clinical Impression: Asthma with acute exacerbation, Bronchitis Condition: Stable Prescriptions: New prednisone 20 mg tablet 20 mg PO TID Qty: 15 0RF Rx Instructions: 1 p.o. 3 times daily x3 days, 1 p.o. twice daily x2 days, 1 p.o. daily x2 days ipratropium-albuterol 0.5 mg-3 mg(2.5 mg base)/3 mL solution for nebulization 3 ml inhalation Q4H PRN (Reason: shortness of breath or wheezing) Qty: 90 0RF Rx Instructions: until breathing returns to target peak flow/parameters No Action atenolol 100 mg tablet 100 mg PO DAILY albuterol sulfate 90 mcg/actuation aerosol powdr breath activated 3 inh INHALATION QID PRN (Reason: Shortness Of Breath) simvastatin 40 mg tablet 20 mg PO QPM omeprazole 20 mg capsule,delayed release(DR/EC) 20 mg PO BID@09,18 fluoxetine 20 mg capsule 20 mg PO DAILY Spiriva Respimat 2.5 mcg/actuation mist 2 inh INHALATION DAILY@18 metformin 1,000 mg tablet 1,000 mg PO BID@09,18 Metamucil 3.4 gram/5.4 gram powder 1 tbsp PO BID PRN (Reason: Constipation) Rx Instructions: mix into at least 8 oz of water or juice before administering amlodipine 5 mg tablet 5 mg PO DAILY dutasteride 0.5 mg capsule 0.5 mg PO BEDTIME Qty: 90 3RF galantamine 4 mg tablet See Rx Instructions .ROUTE .COMPLEX Qty: 180 0RF Dose Instruction: TAKE 1 TABLET BY MOUTH TWICE DAILY WITH THE MORNING AND EVENING MEAL Rx Instructions: TAKE 1 TABLET BY MOUTH TWICE DAILY WITH THE MORNING AND EVENING MEAL insulin glargine [Lantus U-100 Insulin] 100 unit/mL solution 40 unit SUBCUT BEDTIME ascorbic acid (vitamin C) [Vitamin C] 500 mg Tablet 500 mg PO DAILY@09 Humulin R Regular U-100 Insuln 100 unit/mL Solution See Rx Instructions .ROUTE .COMPLEX Rx Instructions: 28 units every am and 10 units before dinner losartan 100 mg tablet 50 mg PO QPM cholecalciferol (vitamin D3) [Vitamin D3] 25 mcg (1,000 unit) Capsule 2,000 unit PO QPM Centrum Silver 0.4-300-250 mg-mcg-mcg Tablet 1 tab PO DAILY sildenafil 25 mg Tablet 25 mg PO DAILY PRN (Reason: Sexual Activity) Rx Instructions: administer 30 minutes to 4 hours before activity tramadol 50 mg tablet 50 mg PO Q6H PRN (Reason: Pain) doxycycline hyclate 100 mg tablet 100 mg PO BID tamsulosin 0.4 mg capsule 0.4 mg PO DAILY aspirin 81 mg Tablet,Delayed Release (Dr/Ec) 81 mg PO DAILY docusate sodium [Colace] 100 mg capsule 100 mg PO BID PRN (Reason: Constipation) Discharge Orders: Discharge ED (Routine); Ordered 10/25/22 Ordered By: Valentin Garcia Other Ambulatory Orders: DME: Nebulizer with Neb Kit (Order) Timeframe: 99 Days Location: None Selected Ordered By: Valentin Garcia Referrals: Clarence Bradford MD [Primary Care Provider] - Discharge Diet: Usual diet Discharge Activity: Resume usual activity Activity Restrictions/Additional Instructions: You were seen today for shortness of breath. Recommend that you fill the antibiotics that Dr. Bradford recently gave you. Also start steroid taper tomorrow. Use nebulizer every 4 hours while awake as needed recheck with Dr. Bradford if not improving. 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
== END 2022-10-25 15:02 | disposition home or self-care (01) ==
PROVIDERS: Emergency Provider Family Medicine; PCP Family Medicine
DX: J44.1 Chronic obstructive pulmonary disease with (acute) exacerbation (principal); E11.9 Type 2 diabetes mellitus without complications; Z79.4 Long term (current) use of insulin; Z79.82 Long term (current) use of aspirin; Z87.891 Personal history of nicotine dependence
CPT/HCPCS: 36415; 71045; 80053; 82550; 85025; 93005; 94640; 96374; 99285; J2930

== ENCOUNTER 2022-10-28 09:28 | Outpatient (CLI) | payer OTHER, SELFPAY ==
[2022-10-28 10:12] LABS: Add Urine Microscopic? NO; Charge for UA Resulting for Rev
[2022-10-28 10:15] LABS: Bilirubin Urine Neg (Negative); Blood Urine Neg (Negative); Glucose Urine UA Norm (Normal); Ketones Urine Negative (Negative); Leukocyte Esterase Urine Negative (Negative); Nitrate Urine Negative (Negative); Protein Urine Neg (Negative); Urine Appearance Clear (CLEAR); Urine Color Yellow (Yellow); Urobilinogen Urine 1 mg/dL (Negative); pH Urine 7 (5-7)
[2022-10-28 10:28] LABS: Alanine Aminotransferase 20 U/L (0-41); Albumin Level 3.5 g/dL (3.5-5.2); Alkaline Phosphatase 90 U/L (40-130); Blood Urea Nitrogen 19 mg/dL (8-23); Calcium 9.4 mg/dL (8.5-10.5); Carbon Dioxide 29 mmol/L (22-29); Chloride 101 mmol/L (98-107); Glucose 169 mg/dL (65-115); Osmolality Calculated 294 mOsm/kg (285-295); Sodium 139 mmol/L (136-145); Total Bilirubin 0.5 mg/dL (0.15-1.2); Total Protein 6.5 g/dL (6.6-8.7)
[2022-10-28 10:29] LABS: Anion Gap 13.1 (5-19); Aspartate Amino Transferase 17 U/L (0-40); Potassium 4.1 mmol/L (3.5-5.1)
== END 2022-10-28 09:29 | disposition home or self-care (01) ==
LOC: LAB 09:40
PROVIDERS: PCP Family Medicine; Visit Provider Chiropractor
DX: E11.9 Type 2 diabetes mellitus without complications (principal); Z79.899 Other long term (current) drug therapy
CPT/HCPCS: 36415; 80053; 81003

== ENCOUNTER 2022-12-19 13:21 | Outpatient (CLI) | payer MEDICARE, OTHER, SELFPAY ==
[2022-12-19 14:38] LABS: PSA Screen - Urology 0.88 ng/mL (0-4)
== END 2022-12-19 13:22 | disposition home or self-care (01) ==
LOC: LAB 13:28
PROVIDERS: PCP Family Medicine; Visit Provider Urology
DX: Z12.5 Encounter for screening for malignant neoplasm of prostate (principal)
CPT/HCPCS: 36415; G0103

== ENCOUNTER → 2023-01-03 09:54 | Outpatient (BNVA) | payer MEDICARE, OTHER, SELFPAY | PROVIDERS: PCP Family Medicine; Visit Provider Specialist | DX: G31.84 Mild cognitive impairment of uncertain or unknown etiology (principal); Z86.73 Personal history of transient ischemic attack (TIA), and cerebral infarction without residual deficits; Z87.891 Personal history of nicotine dependence | CPT/HCPCS: 99213 ==

== ENCOUNTER → 2023-05-31 10:06 | Outpatient (BNVA) | payer MEDICARE, OTHER, SELFPAY | PROVIDERS: PCP Family Medicine; Referring Provider Emergency Medicine Emergency Medical Services; Visit Provider Internal Medicine | DX: E11.649 Type 2 diabetes mellitus with hypoglycemia without coma; E11.40 Type 2 diabetes mellitus with diabetic neuropathy, unspecified; E78.2 Mixed hyperlipidemia; Z79.4 Long term (current) use of insulin; Z79.84 Long term (current) use of oral hypoglycemic drugs; Z86.73 Personal history of transient ischemic attack (TIA), and cerebral infarction without residual deficits | CPT/HCPCS: 36415; 80053; 80061; 82044; 82607; 83036; 84681; 86337; 86341; 99204 ==

== ENCOUNTER → 2023-07-10 08:56 | Outpatient (BNVA) | payer MEDICARE, OTHER, SELFPAY | PROVIDERS: PCP Family Medicine; Visit Provider Internal Medicine | DX: E11.40 Type 2 diabetes mellitus with diabetic neuropathy, unspecified (principal); E11.649 Type 2 diabetes mellitus with hypoglycemia without coma; E78.2 Mixed hyperlipidemia; Z79.4 Long term (current) use of insulin; Z79.84 Long term (current) use of oral hypoglycemic drugs | CPT/HCPCS: 99215 ==

== ENCOUNTER 2023-09-08 07:36 | Outpatient (CLI) | payer OTHER, SELFPAY ==
--- NOTE | 2023-09-08 07:42 | USCV_ITS ---
Tesha Nehemiah Age: 73 Gender: M : 1950 Exam Date: 09/08/2023 08:08 Ordering Phys: Bucky Vieyra DO Technologist: Ricky Messer [place] [facility] [place] [facility] [place]: [place] HISTORY: Diameter (cm) AP x Transverse x Length Velocity (cm/s) Waveform Prox Aorta: 2.02 x 2.06 x 142.80 Mid Aorta: 1.67 x 1.89 x 83.50 Distal Aorta: 1.23 x 1.42 x 95.90 Right Iliac Prox: 0.87 x 1.17 x 280.60 Left Iliac Prox: 0.94 x 1.04 x 129.80 Stent Prox Landing x x Aneurysmal Sac Max x x Lt Lat Sac Dim Rt Lat Sac Dim Stent Dist Landing x x Right Iliac Stent x x Left Iliac Stent x x Right Renal Art Left Renal Art FINDINGS: Comparison:. 09/14/22 A complete assessment of the abdominal aorta was not possible. No evidence of abdominal aortic or bilateral iliac aneurysm. CONCLUSIONS No evidence of abdominal aortic aneurysm. Dr. Emilie High DO (Electronically Signed) Final Date: 08 September 2023 09:59 S
== END 2023-09-08 07:37 | disposition home or self-care (01) ==
LOC: RAD 07:36
PROVIDERS: PCP Family Medicine; Visit Provider Emergency Medicine Emergency Medical Services
DX: Z13.6 Encounter for screening for cardiovascular disorders (principal)
CPT/HCPCS: 76706

== ENCOUNTER → 2023-09-12 09:18 | Outpatient (BNVA) | payer OTHER, SELFPAY | PROVIDERS: PCP Family Medicine; Referring Provider Emergency Medicine Emergency Medical Services; Visit Provider Surgery | DX: Z12.11 Encounter for screening for malignant neoplasm of colon (principal) | CPT/HCPCS: 99203 ==

== ENCOUNTER 2023-10-02 14:38 | Outpatient (CLI) | payer MEDICARE, OTHER, SELFPAY ==
[2023-10-02 16:05] LABS: Creatinine Urine, Random 73 mg/dL (39-259); Microalbum Creatinine Ratio Ur 14 mg/dL (0-20); Microalbumin Random Urine 1 ug/dL (0-20)
[2023-10-02 16:16] LABS: Estmated Average Glucose 194; Hemoglobin A1C 8.4 % (4.0-6.0)
[2023-10-02 16:25] LABS: Alanine Aminotransferase 11 U/L (0-41); Albumin Level 4.1 g/dL (3.5-5.2); Alkaline Phosphatase 94 U/L (40-130); Anion Gap 14.3 (5-19); Aspartate Amino Transferase 14 U/L (0-40); Blood Urea Nitrogen 13 mg/dL (8-23); Calcium 9.7 mg/dL (8.5-10.5); Carbon Dioxide 29 mmol/L (22-29); Chloride 106 mmol/L (98-107); Chol HDL Ratio 3.52 mg/dL (1.0-5.00); Cholesterol 155 mg/dL (0-200); Globulin 2.4 g/dL (1.3-4.6); Glucose 158 mg/dL (65-115); HDL Cholesterol 44 mg/dL (60-100); LDL Cholesterol Calculated 74 mg/dL (50-129); LDL HDL Ratio 1.68 RATIO (0.00-3.22); Osmolality Calculated 301 mOsm/kg (285-295); Potassium 5.3 mmol/L (3.5-5.1); Sodium 144 mmol/L (136-145); Total Bilirubin 0.3 mg/dL (0.15-1.2); Total Protein 6.5 g/dL (6.6-8.7); Triglycerides 183 mg/dL (0-150)
== END 2023-10-02 14:39 | disposition home or self-care (01) ==
LOC: LAB 14:48
PROVIDERS: PCP Family Medicine; Visit Provider Internal Medicine
DX: E11.649 Type 2 diabetes mellitus with hypoglycemia without coma (principal); E11.40 Type 2 diabetes mellitus with diabetic neuropathy, unspecified
CPT/HCPCS: 36415; 80053; 80061; 82044; 83036

== ENCOUNTER 2023-11-10 13:27 | Emergency (ER) | payer MEDICARE, OTHER, SELFPAY ==
[2023-11-10 13:28] VITALS: BP 148/81; PULSE 101; RESP 18; TEMP 36.7; O2SAT 98; BMI 25.1
--- NOTE | 2023-11-10 13:37 | ECG_ITS ---
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 Measurements Intervals [place] Rate: 98 P: 240 WV: 233 QRS: 3 QRSD: 96 T: 64 QT: 354 QTc: 452 Interpretive Statements Possible sinus rhythm with a short W[place] interval and rare PVCs ABNORMAL RHYTHM ECG Compared to ECG 10/25/2022 12:38:16 Sinus bradycardia no longer present Electrical artifact is present Electronically Signed On 11-10-2023 17:09:39 CDT by Rylie Marquez M.D. [id number]
--- NOTE | 2023-11-10 14:13 | XR_ITS ---
WS: [id number] Examination: XR chest 1V [id number] Reason for Exam: palpitations Date: November 10, 2023 Comparison: October 25, 2022 Findings: The heart is not enlarged. The mediastinum is not widened. There is no pulmonary edema or pleural effusion There is no dense consolidation Thoracic spinal leads are noted. IMPRESSION: No acute lung process is appreciated.
--- NOTE | 2023-11-10 14:13 | CT_ITS ---
WS: [id number] CT HEAD TECHNIQUE: Noncontrast CT of the head obtained from the skullbase to the vertex. CLINICAL INFORMATION: headache COMPARISON: MRI 08/18/[address] 2021 DLP: 1069.[address] scans at [facility] use at least one of these dose optimization techniques: automated e xposure control; mA and/or kV adjustment per patient size (includes targeted exams where dose is matc hed to clinical indication); or iterative reconstruction. FINDINGS: No evidence of intracranial hemorrhage or mass effect. Ventricular system and basal cisterns are cuba nt. Mild small vessel changes with moderate parenchymal volume loss. No extra-axial fluid collections . No evidence of mass or mass effect. Intracranial vascular calcification. Mucosal thickening in the paranasal sinuses. Mastoid air cells a re well aerated. Increased attenuation RIGHT globe likely due to silicone injection for retinal detac hment. Recommend correlation with clinical history. If no history of surgery, then findings presumabl y due to spontaneous vitreous hemorrhage. No evidence of overlying hematoma or history of trauma Paranasal sinuses and mastoid air cells are well aerated. .Normal visualized soft tissues. IMPRESSION: 1. No evidence of intracranial hemorrhage or mass effect. 2. Mild small vessel changes. Moderate parenchymal volume loss. 3. Increased attenuation in the RIGHT globe likely due to prior silicone injection for retinal detac hment. If no history of surgery, then presumed spontaneous vitreous hemorrhage. Findings are new sinc e the prior studies. 4. No other suspicious findings. Notified Valentin Garcia MD at 11/10/2023 3:44 PM.
[2023-11-10 14:38] LABS: Basophils # 0.1 10^3/uL (0.0-0.1); Basophils % 0.8 %; Eosinophils # 0.2 10^3/uL (0.0-0.8); Eosinophils % 3.2 %; Hematocrit 42.3 % (37-53); Lymphocytes # 1.4 10^3/uL (0.8-4.8); Lymphocytes % 23.2 %; Mean Corpuscular HGB Conc 33.8 g/dL (30-55); Mean Corpuscular Hemoglobin 28.1 pg (27-33); Mean Corpuscular Volume 83.3 fl (82-101); Mean Platelet Volume 9.8 fL (7.4-10.4); Monocytes # 0.6 10^3/uL (0.2-0.9); Monocytes % 9.8 %; Neutrophils # 3.69 10^3/uL (1.8-7.7); Neutrophils % 62.5 %; Nucleated Red Blood Cells % 0 %; Platelet Count 129 10^3/cmm (157-399); Red Blood Count 5.08 10^6/uL (3.85-5.65); Red Cell Distribution Width 12.6 % (12.1-15.1); White Blood Count 5.91 10^3/uL (3.29-11.43)
[2023-11-10 15:10] LABS: Troponin(5th) Baseline 17 ng/L (0-15)
[2023-11-10 15:19] LABS: Alanine Aminotransferase 10 U/L (0-41); Albumin Level 4.1 g/dL (3.5-5.2); Alkaline Phosphatase 97 U/L (40-130); Anion Gap 14.6 (5-19); Aspartate Amino Transferase 12 U/L (0-40); Blood Urea Nitrogen 12 mg/dL (8-23); Calcium 9.5 mg/dL (8.5-10.5); Carbon Dioxide 27 mmol/L (22-29); Chloride 101 mmol/L (98-107); Creatinine Clr Calc Pharmacy 64.8657; Glucose 228 mg/dL (65-115); Magnesium 1.5 mg/dL (1.7-2.3); Osmolality Calculated 293 mOsm/kg (285-295); Potassium 4.6 mmol/L (3.5-5.1); Sodium 138 mmol/L (136-145); Thyroid Stimulating Hormone 1.41 uIU/mL (0.27-4.20); Total Bilirubin 0.3 mg/dL (0.15-1.2); Total Protein 6.1 g/dL (6.6-8.7)
--- NOTE | 2023-11-10 15:22 | ED_ITS ---
HPI - General Adult 2 General: Chief complaint: General Medical Stated complaint: High HR Time Seen by Provider: 11/10/23 15:01 Source: patient Mode of arrival: ambulatory History of Present Illness: 73-year-old male presents to the emergen cy room with complaints of atrial fibrillation. He has a apple smart watch and he was monitoring his heart rate on it jumped from the 60s to 120s and back down again seem to be jumping around quite a bit the watch that he may be in atrial fibrillation so he came to the emergency room he is not having any chest pain has not previously had any palpitations. He recently did have surgery for a right detached retina Onset (ago): minute(s) Relieving factors: none Exacerbating factors: none Associated symptoms: Deny chest pain, confusion, cough, diaphoresis, decreased appetite, dyspnea, fevers/chills, headache(s), malaise, nausea, rash, palpitations, seizures, short of breath, syncope, vomiting or weakness Treatments prior to arrival: none Review of Systems 2 Const: Denies: malaise or diaphoresis Card: Denies: chest pain, palpitations or syncope Resp: Denies: dyspnea GI: Denies: nausea or vomiting : Denies: dysuria, urinary frequency or urinary urgency Musc: Denies: neck pain or back pain Skin/Breast: Denies: rash Neuro: Denies: headache(s) or confusion PFSH ED 2 PFSH: Medical History Asthma Left ureteral calculus Bilateral renal stones BPH NOS w ur obs/LUTS High cholesterol COPD (chronic obstructive pulmonary disease) Diabetes Degenerative arthritis of knee Family History Father Diabetes Other Stroke Social History Smoking and tobacco/nicotine status: former use of tobacco/nicotine Alcohol intake: never Substance/Drug Use: never Marital status: Current occupational status: retired Physical Exam 2 Const: COMMON NORMALS: no acute distress GENERAL APPEARANCE: cooperative and comfortable ORIENTATION/CONSCIOUSNESS: Yes awake, Yes oriented to person, Yes oriented to place and Yes oriented to time HENMT: COMMON NORMALS: normocephalic, atraumatic and hearing grossly normal bilaterally HEAD & SCALP: normocephalic and atraumatic Resp: COMMON NORMALS: normal respiratory effort, No retractions, No use of accessory muscles and clear to auscultation bilaterally AUSCULTATION: clear to auscultation bilaterally Cardio: COMMON NORMALS: regular rate, regular rhythm and No murmurs present (Cardio) RATE: regular rate RHYTHM: regular rhythm GI: COMMON NORMALS: Soft to palpation and No hepatosplenomegaly present A USCULTATION: Yes normoactive bowel sounds PALPATION: Yes Soft to palpation, No Tenderness to palpation present (GI), No Guarding due to palpation present (GI) and Yes No hepatosplenomegaly present Extremity: COMMON NORMALS: normal to inspection, capillary refill normal, no clubbing, cyanosis or edema, no calf tenderness and no pedal edema Neuro: SENSORIUM/ORIENTATION: Yes oriented to person, Yes oriented to place and Yes oriented to time Skin: COMMON NORMALS: no rashes or lesions noted GENERAL SKIN EXAM: no rashes or lesions noted Course 2 Vital Signs: Vital signs: Vital Signs Temperature 98.0 F 11/10/23 13:28 Pulse Rate 101 H 11/10/23 13:28 Respiratory Rate 18 11/10/23 13:28 Blood Pressure 148/81 11/10/23 13:28 Pulse Oximetry 98 11/10/23 13:28 Oxygen Delivery Me thod Room Air 11/10/23 13:[address] [facility] - General Adult Medical Decision Making Cardiac enzymes and EKG are normal he is maintaining a normal sinus rhythm while being monitored in the emergency room. Will discharge patient home set him up for a 48-hour Holter monitor and follow-up with his primary care doctor. Chest x-ray is normal EKG does not show any acute changes. CT of the head shows evidence of the recent eye surgery that patient had for deattached retina. Medical Records I reviewed the patient's medical records. Lab Data I reviewed the patient's lab results. 11/10/23 14:30 11/10/23 14:30 Laboratory Results WBC 5.91 10^3/uL (3.29-11.43) 11/10/23 14:30 RBC 5.08 10^6/uL (3.85-5.65) 11/10/23 14:30 Hgb 14.30 g/dL (11.27-16.99) 11/10/23 14:30 Hct 42.3 % (37-53) 11/10/23 14:30 MCV 83.3 fl (82-101) 11/10/23 14:30 MCH 28.1 pg (27-33) 11/10/23 14:30 MCHC 33.8 g/dL (30-55) 11/10/23 14:30 RDW 12.6 % (12.1-15.1) 11/10/23 14:30 Plt Count 129 10^3/cmm (157-399) L 11/10/23 14:30 MPV 9.8 fL (7.4-10.4) 11/10/23 14:30 Neut % (Auto) 62.5 % 11/10/23 14:30 Lymph % (Auto) 23.2 % 11/10/23 14:30 [place] % (Auto) 9.8 % 11/10/23 14:30 Eos % (Auto) 3.2 % 11/10/23 14:30 Baso % (Auto) 0.8 % 11/10/23 14:30 Neut # (Auto) 3.69 10^3/uL (1.8-7.7) 11/10/23 14:30 Lymph # (Auto) 1.4 10^3/uL (0.8-4.8) 11/10/23 14:30 [place] # (Auto) 0.6 10^3/uL (0.2-0.9) 11/10/23 14:30 Eos # (Auto) 0.2 10^3/uL (0.0-0.8) 11/10/23 14: Baso # (Auto) 0.1 10^3/uL (0.0-0.1) 11/10/23 14:30 Nucleated RBC % (auto) 0 % 11/10/23 14: Nucleated RBCs # 0.0 /100WBC 11/10/23 14:30 Sodium 138 mmol/L (136-145) 11/10/23 14:30 Potassium 4.6 mmol/L (3.5-5.1) 11/10/23 14:30 Chloride 101 mmol/L (98-107) 11/10/23 14:30 Carbon Dioxide 27 mmol/L (22-29) 11/10/23 14:30 Anion Gap 14.6 (5-19) 11/10/23 14:30 BUN 12 mg/dL (8-23) 11/10/23 14:30 Creatinine 1.1 mg/dL (0.7-1.2) 11/10/23 14:30 GFR Calculation Not Reportable 11/10/23 14:30 Glucose 228 mg/dL (65-115) H 11/10/23 14:30 Calculated Osmolality 293 mOsm/kg (285-295) 11/10/23 14:30 Calcium 9.5 mg/dL (8.5-10.5) 11/10/23 14:30 Magnesium 1.5 mg/dL (1.7-2.3) L 11/10/23 14:30 Total Bilirubin 0.3 mg/dL (0.15-1.2) 11/10/23 14:30 AST 12 U/L (0-40) 11/10/23 14:30 ALT 10 U/L (0-41) 11/10/23 14:30 Alkaline Phosphatase 97 U/L (40-130) 11/10/23 14:30 Troponin T Baseline 17 ng/L (0-15) H 11/10/23 14:30 Troponin T 120 Minute 19.58 ng/L (0-15) H 11/10/23 15:52 Delta Troponin T 2.58 ABS# (0-10) 11/10/23 15:52 Total Protein 6.1 g/dL (6.6-8.7) L 11/10/23 14:30 Albumin 4.1 g/dL (3.5-5.2) 11/10/23 14:30 Globulin 2.0 g/dL (1.3-4.6) 11/10/23 14:30 TSH 1.41 uIU/mL (0.27-4.20) 11/10/23 14:30 Influenza Type A Ag negative (Negative) 11/10/23 15:15 Influenza Type B Ag negative (Negative) 11/10/23 15:15 SARS-CoV-2 Ag (Rapid) negative (Negative) 11/10/23 15:15 All radiology interpretation(s) finalized by discharge Discharge Plan Discharge Patient Disposition: Home Clinical Impression: Palpitations Condition: Stable Prescriptions: No Action atenolol 100 mg tablet 100 mg PO DAILY albuterol sulfate 90 mcg/actuation aerosol powdr breath activated 3 inh INHALATION QID PRN (Reason: Shortness Of Breath) simvastatin 40 mg tablet 20 mg PO QPM omeprazole 20 mg capsule,delayed release(DR/EC) 20 mg PO BID@,18 fluoxetine 20 mg capsule 20 mg PO DAILY Spiriva Respimat 2.5 mcg/actuation mist 2 inh INHALATION DAILY@18 metformin 1,000 mg tablet 1,000 mg PO BID@,18 Metamucil 3.4 gram/5.4 gram powder 1 tbsp PO BID PRN (Reason: Constipation) Rx Instructions: mix into at least 8 oz of water or juice before administering amlodipine 5 mg tablet 5 mg PO DAILY Rx Instructions: ALONG WITH 2.5MG TO=7.5MG DAILY (DME) Dexcom G7 Sensor Device See Rx Instructions .ROUTE .MEDSUPPLY Qty: 9 3RF Rx Instructions: Change every 10days tamsulosin 0.4 mg capsule 0.4 mg PO DAILY Qty: 90 3RF dutasteride 0.5 mg capsule 0.5 mg PO BEDTIME Qty: 90 3RF (DME) Dexcom G7 Ethylene Oxide Panelboard Operator Misc See Rx Instructions .Route Qty: 1 0RF Rx Instructions: As directed amlodipine 2.5 mg tablet 2.5 mg PO DAILY Rx Instructions: ALONG WITH 5MG TO =7.5MG DAILLY (DME) pen needle, diabetic [Comfort EZ Pen Gates] 31 gauge x 5/16 needle See Rx Instructions .Route Qty: 300 1RF Rx Instructions: up to 3 times a day insulin glargine [Lantus U-100 Insulin] 100 unit/mL solution 40 unit SUBCUT BEDTIME ascorbic acid (vitamin C) [Vitamin C] 500 mg Tablet 500 mg PO DAILY@09 losartan 100 mg tablet 50 mg PO QPM cholecalciferol (vitamin D3) [Vitamin D3] 25 mcg (1,000 unit) Capsule 2,000 unit PO QPM Centrum Silver 0.4-300-250 mg-mcg-mcg Tablet 1 tab PO DAILY sildenafil 25 mg Tablet 25 mg PO DAILY PRN (Reason: Sexual Activity) Rx Instructions: administer 30 minutes to 4 hours before activity tramadol 50 mg tablet 50 mg PO Q6H PRN (Reason: Pain) doxycycline hyclate 100 mg tablet 100 mg PO BID aspirin 81 mg Tablet,Delayed Release (Dr/Ec) 81 mg PO DAILY docusate sodium [Colace] 100 mg capsule 100 mg PO BID PRN (Reason: Constipation) hydrochlorothiazide 25 mg Tablet 12.5 mg PO QAM galantamine 4 mg tablet 4 mg PO BID Novolog FlexPen U-100 Insulin 100 unit/mL (3 mL) insulin pen 5 unit SUBCUT TID MDD 30 Discharge Orders: Discharge ED (Routine); Ordered 11/10/23 Ordered By: Valentin Garcia Referrals: Clarence Bradford MD [Primary Care Provider] - Discharge Diet: Usual diet Discharge Activity: Resume usual activity Patient Instructions: Opioid Safety, Pain Management Activity Restrictions/Additional Instructions: Thank you for choosing [facility] for your healthcare needs today. Please realize this is an emergency room and that we are providing you with a medical screening exam and this may not be complete and all inclusive of all the testing and or work up that you may need to determine your ailment or severity of your illness. It is very important that you follow up as instructed or that you return to the Emergency Department should you have concerns or if your condition changes or worsens in any way. crm campaign manager will make arrangements for you to have a 48-hour Holter monitor. Follow-up with your primary care doctor. Coding Level of Care Code ED Specialized Language Instructor for Josh Yee
[2023-11-10 15:45] LABS: Influenza A by IFA negative (Negative); Influenza B by IFA negative (Negative)
[2023-11-10 15:46] LABS: SARS Covid-2 Antigen negative (Negative)
--- NOTE | 2023-11-10 16:11 | ECG_ITS ---
[facility] Test Date: 2023-11-10 Pat Name: Nehemiah Parkinson Department: Room: Gender: Male Inpatient Services Director: : 1950 Requested By: Margarette Marie Order Number: [id number] Bev MD: Rylie Marquez M.D. Measurements Intervals Holden Rate: 67 P: 46 GA: 366 QRS: 4 QRSD: 98 T: 15 QT: 407 QTc: 431 Interpretive Statements Normal sinus rhythm with short GA interval. Heavy baseline electrical artifact Electronically Signed On 11-10-2023 17:41:38 CDT by Rylie Marquez M.D. [id number]
[2023-11-10 16:20] LABS: Troponin 5 2HR 19.58 ng/L (0-15); Troponin 5 2HR Delta 2.58 ABS# (0-10)
[2023-11-10 18:18] VITALS: BP 138/86; PULSE 68; RESP 16; O2SAT 98
== END 2023-11-10 18:24 | disposition home or self-care (01) ==
PROVIDERS: Emergency Medicine; Emergency Provider Family Medicine; PCP Family Medicine
DX: R00.2 Palpitations (principal); Z79.82 Long term (current) use of aspirin; Z79.4 Long term (current) use of insulin; Z79.84 Long term (current) use of oral hypoglycemic drugs; Z11.52 Encounter for screening for COVID-19; J44.9 Chronic obstructive pulmonary disease, unspecified; E11.9 Type 2 diabetes mellitus without complications; Z87.891 Personal history of nicotine dependence
CPT/HCPCS: 36415; 70450; 71045; 80053; 83735; 84443; 84484; 85025; 87426; 87804; 93005; 99285

== ENCOUNTER 2023-12-05 11:28 | Outpatient (CLI) | payer MEDICARE, OTHER, SELFPAY ==
[2023-12-05 12:24] LABS: Basophils # 0.1 10^3/uL (0.0-0.1); Eosinophils # 0.3 10^3/uL (0.0-0.8); Eosinophils % 4.4 %; Hematocrit 41.9 % (37-53); Lymphocytes # 1.6 10^3/uL (0.8-4.8); Lymphocytes % 26.5 %; Mean Corpuscular HGB Conc 34.1 g/dL (30-55); Mean Corpuscular Hemoglobin 28.5 pg (27-33); Mean Corpuscular Volume 83.6 fl (82-101); Mean Platelet Volume 9.8 fL (7.4-10.4); Monocytes # 0.6 10^3/uL (0.2-0.9); Neutrophils # 3.57 10^3/uL (1.8-7.7); Neutrophils % 57.6 %; Nucleated Red Blood Cells % 0 %; Platelet Count 137 10^3/cmm (157-399); Red Blood Count 5.01 10^6/uL (3.85-5.65); Red Cell Distribution Width 12.6 % (12.1-15.1); White Blood Count 6.19 10^3/uL (3.29-11.43)
[2023-12-05 12:46] LABS: Creatinine Urine, Random 215 mg/dL (39-259); Microalbum Creatinine Ratio Ur 9 mg/dL (0-20); Microalbumin Random Urine 2 ug/dL (0-20)
[2023-12-05 12:59] LABS: Calcium 8.9 mg/dL (8.5-10.5); Parathyroid Hormone 29.4 pg/mL (15-65)
[2023-12-05 13:07] LABS: 25 Hydroxy Vitamin D 39 ng/mL (30-100); Anion Gap 15.2 (5-19); Blood Urea Nitrogen 17 mg/dL (8-23); Calcium 8.9 mg/dL (8.5-10.5); Carbon Dioxide 28 mmol/L (22-29); Chloride 103 mmol/L (98-107); Glucose 168 mg/dL (65-115); Phosphorus 3.8 mg/dL (2.5-4.5); Potassium 4.2 mmol/L (3.5-5.1); Sodium 142 mmol/L (136-145)
== END 2023-12-05 11:29 | disposition home or self-care (01) ==
LOC: LAB 11:31
PROVIDERS: PCP Family Medicine; Visit Provider Internal Medicine Nephrology
DX: E55.9 Vitamin D deficiency, unspecified (principal); N18.2 Chronic kidney disease, stage 2 (mild)
CPT/HCPCS: 36415; 80069; 82044; 82306; 82310; 83970; 85025

== ENCOUNTER 2023-12-07 10:05 | Day surgery (SDC) | payer OTHER, SELFPAY ==
[2023-12-07 10:25] VITALS: BP 168/80; PULSE 59; RESP 18; TEMP 36.1; O2SAT 99; BMI 25.1
[2023-12-07] MEDS: sodium chloride 0.9% 1,000 ML 30 ML IV (10:32)
[2023-12-07 11:12] LABS: Glucose Point of Care 210 mg/dL (70-110)
--- NOTE | 2023-12-07 11:18 | W.PM.OPSFHP ---
Same Day Surgery H&P Indication for Procedure/HPI DATE OF PROCEDURE: December 07, 2023 CHIEF COMPLAINT/INDICATIONFOR SURGICAL PROCEDURE: need for screening colonoscopy PREOP DIAGNOSIS: need for screenign colonoscopy PLANNED PROCEDURE: Operation Date: 12/07/23 11:15 Proposed Procedures p 83681 colon G0105 screen colon H risk Z12.11(Not Applicable) - Dimitry Lyons MD Medications/Allergies* Home Medications Medication Instructions Recorded Confirmed Type atenolol 100 mg tablet 100 mg PO DAILY 09/20/19 12/07/23 History fluoxetine 20 mg capsule 20 mg PO DAILY 09/20/19 12/07/23 History metformin 1,000 mg tablet 1,000 mg PO BID@,09/20/19 12/07/23 History omeprazole 20 mg capsule,delayed 20 mg PO BID@,09/20/19 12/07/23 History release simvastatin 40 mg tablet 20 mg PO QPM 09/20/19 12/07/23 History tiotropium bromide 2.5 2 inh inhalation DAILY@09/20/19 12/07/23 History mcg/actuation mist for inhalation (Spiriva Respimat) ascorbic acid (vitamin C) 500 mg 500 mg PO DAILY@07/10/20 12/07/23 History tablet (Vitamin C) cholecalciferol (vitamin D3) 25 2,000 unit PO QPM 07/10/20 12/07/23 History mcg (1,000 unit) capsule (Vitamin D3) insulin glargine 100 unit/mL 40 unit SUBCUT BEDTIME 07/10/20 12/07/23 History subcutaneous solution (Lantus U-100 Insulin) losartan 100 mg tablet 50 mg PO QPM 07/10/20 12/07/23 History tstvyoub-nby-cndbc acid 0.4 1 tab PO DAILY 07/10/20 12/07/23 History mg-lycopene 300 mcg-lutein 250 mcg tablet (Centrum Silver) amlodipine 5 mg tablet 5 mg PO DAILY 12/21/21 12/07/23 History aspirin 81 mg tablet,delayed 81 mg PO DAILY 05/26/22 12/07/23 History release docusate sodium 100 mg capsule 100 mg PO BID PRN Constipation 05/26/22 12/04/23 History (Colace) amlodipine 2.5 mg tablet 2.5 mg PO DAILY 09/12/23 12/07/23 History galantamine 4 mg tablet 4 mg PO BID 11/10/23 12/07/23 History hydrochlorothiazide 25 mg tablet 12.5 mg PO QAM 11/10/23 12/07/23 History insulin aspart U-100 100 unit/mL 5 unit SUBCUT TID 11/10/23 12/07/23 History (3 mL) subcutaneous pen (Novolog FlexPen U-100 Insulin aspart) Allergies/Adverse Reactions Allergy/AdvReac Type Severity Reaction Status Date / Time No Known Allergies Allergy Verified 12/04/23 10:39 Current Medications: Generic Name Dose Route Start Last Admin Trade Name Freq PRN Reason Stop Dose Admin Sodium Chloride 1,000 mls @ 30 mls/hr 12/07/23 07:15 12/07/23 10:32 Sodium Chloride 0.9% IV 12/08/23 07:14 30 mls/hr .Q24H CASS Administration Pertinent History/Comorbid Conditions* Medical History (Updated 11/18/23 @ 00:01 by ORESTES Lewis) Asthma Left ureteral calculus Bilateral renal stones BPH NOS w ur obs/LUTS High cholesterol COPD (chronic obstructive pulmonary disease) Diabetes Degenerative arthritis of knee Family History (Updated 09/20/19 @ 10:49 by Karolina Vanegas RN) Diabetes Father Stroke Social History Smoking and tobacco/nicotine status: former use of tobacco/nicotine Alcohol intake: never Substance/Drug Use: never Marital status: Current occupational status: retired Pertinent Exam Findings alert, oriented x 3, clear to auscultation bilaterally, regular rate & rhythm and operative site marked Recommendations Surgery/Procedure today Coding Level of Care Code Acute Code for Josh Yee
--- NOTE | 2023-12-07 11:19 | ANES.PREANE2 ---
Pre-Anesthetic Assessment Height/Weight: Height 1.8 m Weight 81.647 kg Temp Pulse Resp BP Pulse Ox O2 Del Method 97.0 F L 59 L 18 168/80 99 Room Air 12/07/23 10:25 12/07/23 10:25 12/07/23 10:25 12/07/23 10:25 12/07/23 10:25 12/07/23 10:25 Preop Diagnosis: need for screenign colonoscopy Operation Date: 12/07/23 11:15 Proposed Procedures p 45712 colon G0105 screen colon H risk Z12.11(Not Applicable) - Dimitry Lyons MD Familial anesthetic complications: none Was Beta Baltazar taken within 24 hours: Yes Was Clonidine taken within 24 hours: N/A Last intake: Intake Last Liquid Date 12/06/23 Last Liquid Time 23:00 Last Solid Date 12/05/23 Last Solid Time 18:30 Social Tobacco (former) and No alcohol Exam alert and oriented x 3 Airway Submandibular: within normal limits Cervical ROM: within normal limits Mallampati: Class II Dentition: false History/ROS No significant history except as noted Pulmonary Chronic Obstructive Pulmonary Disease CV/HEM Hypertension Kidney Stones Hepatic None reported GI Gastroesophageal Reflux Disease Metabolic Diabetes Mellitus [facility] None reported Neuropsych early alzheimers Anesthetic Plan ASA status: 3 Anesthesia: Anesthesia Evaluation, General and MAC Risk of > 500 ml blood loss (7ml/kg in children): No Medications/Allergies Home Medications Medication Instructions Recorded Confirmed Last Taken Type atenolol 100 mg tablet 100 mg PO DAILY 09/20/19 12/07/23 12/07/23 History fluoxetine 20 mg capsule 20 mg PO DAILY 09/20/19 12/07/23 12/06/23 History metformin 1,000 mg tablet 1,000 mg PO BID@09/20/19 12/07/23 12/06/23 09:00 History omeprazole 20 mg capsule,delayed 20 mg PO BID@09/20/19 12/07/23 12/06/23 History release simvastatin 40 mg tablet 20 mg PO QPM 09/20/19 12/07/23 12/06/23 History tiotropium bromide 2.5 2 inh inhalation DAILY@09/20/19 12/07/23 12/06/23 History mcg/actuation mist for inhalation (Spiriva Respimat) ascorbic acid (vitamin C) 500 mg 500 mg PO DAILY@09 07/10/20 12/07/23 12/06/23 History tablet (Vitamin C) cholecalciferol (vitamin D3) 25 2,000 unit PO QPM 07/10/20 12/07/23 12/06/23 History mcg (1,000 unit) capsule (Vitamin D3) insulin glargine 100 unit/mL 40 unit SUBCUT BEDTIME 07/10/20 12/07/23 12/06/23 History subcutaneous solution (Lantus U-100 Insulin) losartan 100 mg tablet 50 mg PO QPM 07/10/20 12/07/23 12/06/23 History dyxzdacr-rrq-djgbq acid 0.4 1 tab PO DAILY 07/10/20 12/07/23 12/06/23 History mg-lycopene 300 mcg-lutein 250 mcg tablet (Centrum Silver) amlodipine 5 mg tablet 5 mg PO DAILY 12/21/21 12/07/23 12/07/23 History aspirin 81 mg tablet,delayed 81 mg PO DAILY 05/26/22 12/07/23 12/06/23 History release docusate sodium 100 mg capsule 100 mg PO BID PRN Constipation 05/26/22 12/04/23 12/04/23 History (Colace) dutasteride 0.5 mg capsule 0.5 mg PO BEDTIME #90 caps 12/22/22 12/07/23 12/06/23 Rx tamsulosin 0.4 mg capsule 0.4 mg PO DAILY #90 caps 12/22/22 12/07/23 12/06/23 Rx blood-glucose meter,continuous #1 ea 05/31/23 12/04/23 12/04/23 Rx (Dexcom G7 Service Or Work Dispatcher Chief) blood-glucose sensor (Dexcom G7 #9 ea 06/07/23 12/04/23 12/04/23 Rx Sensor device) pen needle, diabetic 31 gauge x #300 ea 07/18/23 12/04/23 12/04/23 Rx 12/20 (Comfort EZ Pen [place]) amlodipine 2.5 mg tablet 2.5 mg PO DAILY 09/12/23 12/07/23 12/07/23 History galantamine 4 mg tablet 4 mg PO BID 11/10/23 12/07/23 12/06/23 History hydrochlorothiazide 25 mg tablet 12.5 mg PO QAM 11/10/23 12/07/23 12/06/23 History insulin aspart U-100 100 unit/mL 5 unit SUBCUT TID 11/10/23 12/07/23 12/06/23 History (3 mL) subcutaneous pen (Novolog FlexPen U-100 Insulin aspart) Allergies Allergy/AdvReac Type Severity Reaction Status Date / Time No Known Allergies Allergy Verified 12/04/23 10:39 Current Medications Generic Name Dose Route Start Last Admin Trade Name Freq PRN Reason Stop Dose Admin Sodium Chloride 1,000 mls @ 30 mls/hr 12/07/23 07:15 12/07/23 10:32 Sodium Chloride 0.9% IV 12/08/23 07:14 30 mls/hr .Q24H CASS Administration PFSH Anesthesia Medical History Asthma Left ureteral calculus Bilateral renal stones BPH NOS w ur obs/LUTS High cholesterol COPD (chronic obstructive pulmonary disease) Diabetes Degenerative arthritis of knee Family History Father Diabetes Other Stroke Social History Smoking and tobacco/nicotine status: former use of tobacco/nicotine Alcohol intake: never Substance/Drug Use: never Marital status: Current occupational status: retired Data Anesthesia Cardiac Studies: No Data to Display
[2023-12-07 12:42] VITALS: BP 129/72; PULSE 47; RESP 16; O2SAT 95
[2023-12-07 13:07] VITALS: BP 120/60; PULSE 47; RESP 18; O2SAT 96
--- NOTE | 2023-12-07 13:14 | ANE.PACU2 ---
Inpatient post-anesthesia follow up: Airway intact: Yes Vital signs: Temperature 97.0 F Pulse Rate 47 Respiratory Rate 18 Blood Pressure 120/60 Pulse Oximetry 96 Oxygen Delivery Me thod Room Air Oxygen Flow Rate Fraction of Inspir ed Oxygen Hydration adequate: Yes Nausea and vomiting: No Pain level: 1 Mental status: Baseline
== END 2023-12-07 12:38 | disposition home or self-care (01) ==
PROVIDERS: PCP Family Medicine; Visit Provider Surgery
PROC: 0DJD8ZZ Inspection of Lower Intestinal Tract, Via Natural or Artificial Opening Endoscopic (ICD-10-PCS; CPT 45378; principal; 2023-12-07 11:15)
DX: Z12.11 Encounter for screening for malignant neoplasm of colon (principal); D12.8 Benign neoplasm of rectum; D12.4 Benign neoplasm of descending colon; D12.3 Benign neoplasm of transverse colon; N40.1 Benign prostatic hyperplasia with lower urinary tract symptoms; N13.8 Other obstructive and reflux uropathy; J44.9 Chronic obstructive pulmonary disease, unspecified; Z87.891 Personal history of nicotine dependence; I10 Essential (primary) hypertension; E11.9 Type 2 diabetes mellitus without complications; Z79.84 Long term (current) use of oral hypoglycemic drugs; Z79.4 Long term (current) use of insulin
CPT/HCPCS: 36416; 45384; 45385; 82962; 88305; J2704; J7030

== ENCOUNTER 2023-12-11 14:24 | Outpatient (CLI) | payer OTHER, SELFPAY ==
[2023-12-11] MEDS: iohexol 350 mg/mL 500 mL Btl (per mL) PO (15:30)
--- NOTE | 2023-12-11 15:30 | CT_ITS ---
WS: [id number] CT ABDOMEN AND PELVIS WITH CONTRAST HISTORY: screening colonoscopy TECHNIQUE: Imaging performed of the abdomen and pelvis with IV contrast. Single phase imaging of the abdomen. Coronal and sagittal reformats are submitted. All CT scans at [facility] use at [address] one of these dose optimization techniques: automated exposure control; mA and/or kV adjustment per patient size (includes targeted exams where dose is matched to clinical indication); or iterative re construction. IV CONTRAST: Omnipaque 350; 100 mL IV. Oral contrast: Yes. DLP: 583.78 mGy.cm COMPARISON: 07/10/2020 Lower thorax: Hyperexpanded lungs with emphysema. Heart is normal size. No hiatal hernia. Liver/biliary system: Normal size with no intrahepatic dilatation. Gallbladder: Normal. No gallstones or wall thickening. No pericholecystic fluid. Pancreas: Diffuse pancreatic atrophy. Spleen: Normal size spleen. No mass or infarct. Adrenal glands: Normal. Right kidney: Very mild perinephric stranding. Nonobstructing central calcifications. RIGHT ureter is very mildly dilated. This is a new finding since 2019. The very distal RIGHT ureter is abnormal. The re is abnormal enhancement suspicious for tumor. Left kidney: Mild perinephric stranding. Vascular calcifications. Aorta: Moderate atherosclerosis with no aneurysm. Lymphadenopathy: None. Free fluid: None. GI tract: Stomach is distended with oral contrast. No small bowel obstruction. There is a loop of sma ll bowel which is nonobstructed extending into an umbilical hernia. There are several clips within th e colon which may be related to the recent colonoscopy and biopsies. Change in density in the central cecum may be a small mass or polyp measuring 2.7 cm. This area is close to a surgical clip and would have been visualized on the colonoscopy. There is diffuse constipation and tortuosity of the colon. No obstructing lesions. Abdominal wall: Ventral abdominal wall hernia at the level of the umbilicus containing nondilated sma ll bowel. Pelvis: Urinary bladder is well distended. There is mild bladder wall thickening throughout. Prostate encroaches into the base of the urinary bladder. Prostate is enlarged and heterogeneous. There is ab normal soft tissue enhancement extending along the base of the bladder into the distal RIGHT ureteral junction. Suspicious for neoplasm or prostate encroachment. RIGHT inguinal hernia containing nondila franklyn small bowel. Bones: L5 anterolisthesis by 11 mm. Bilateral L5 pars defects. Prior RIGHT hip arthroplasty. CT/CT abdomen pelvis w con* [id number] IMPRESSION: 1. Numerous clips are noted throughout the colon. These are probably related t o the recent colonoscopy and biopsies. There is increased soft tissue mass in t he cecum adjacent to the one of the clips which may be a neoplasm or polyp richard uring 2.7 cm. 2. Very mild dilatation of the RIGHT ureter is new since 2019. Distal ureter i s not visualized there is distal ureteral enhancement. Recommend cystoscopy and evaluation of the distal RIGHT ureter for possible tumor. Prostate gland is cl osely associated with the distal ureter and could be invading versus a uroepith elial lesion. 3. Marked prostate enlargement. 4. Ventral abdominal wall hernia containing small bowel but nonobstructing. 5. Nonobstructing RIGHT inguinal hernia containing small bowel. 6. L5 spondylolisthesis with spondylosis.
[2023-12-11] MEDS: iohexol 350 mg/mL 500 mL Btl (per mL) IV (15:34)
== END 2023-12-11 14:25 | disposition home or self-care (01) ==
LOC: RAD 14:24
PROVIDERS: PCP Family Medicine; Visit Provider Surgery
DX: Z12.11 Encounter for screening for malignant neoplasm of colon (principal); N40.0 Benign prostatic hyperplasia without lower urinary tract symptoms; K40.90 Unilateral inguinal hernia, without obstruction or gangrene, not specified as recurrent; M43.14 Spondylolisthesis, thoracic region
CPT/HCPCS: 74177; Q9967

== ENCOUNTER → 2023-12-19 13:45 | Outpatient (BNVA) | payer MEDICARE, OTHER, SELFPAY | PROVIDERS: PCP Family Medicine; Referring Provider Surgery; Visit Provider Internal Medicine | DX: R00.2 Palpitations (principal); I49.1 Atrial premature depolarization; I49.3 Ventricular premature depolarization; I47.10 Supraventricular tachycardia, unspecified | CPT/HCPCS: 93225 ==

== ENCOUNTER → 2023-12-26 13:46 | Outpatient (BNVA) | payer MEDICARE, OTHER, SELFPAY | PROVIDERS: PCP Family Medicine; Visit Provider Surgery | DX: Z09 Encounter for follow-up examination after completed treatment for conditions other than malignant neoplasm (principal) | CPT/HCPCS: 99215 ==

== ENCOUNTER → 2023-12-27 14:05 | Outpatient (BNVA) | payer MEDICARE, OTHER, SELFPAY | PROVIDERS: PCP Family Medicine; Visit Provider Specialist | DX: G31.84 Mild cognitive impairment of uncertain or unknown etiology (principal) | CPT/HCPCS: 99213; 99214 ==

== ENCOUNTER 2024-01-03 13:59 | Outpatient (CLI) | payer MEDICARE, OTHER, SELFPAY ==
[2024-01-03 14:48] LABS: Estmated Average Glucose 206; Hemoglobin A1C 8.8 % (4.0-6.0)
[2024-01-03 15:00] LABS: Alanine Aminotransferase 9 U/L (0-41); Alkaline Phosphatase 92 U/L (40-130); Anion Gap 13.5 (5-19); Aspartate Amino Transferase 15 U/L (0-40); Blood Urea Nitrogen 13 mg/dL (8-23); Calcium 8.6 mg/dL (8.5-10.5); Carbon Dioxide 28 mmol/L (22-29); Chloride 106 mmol/L (98-107); Chol HDL Ratio 2.56 mg/dL (1.0-5.00); Cholesterol 123 mg/dL (0-200); Globulin 2.5 g/dL (1.3-4.6); Glucose 156 mg/dL (65-115); HDL Cholesterol 48 mg/dL (60-100); LDL Cholesterol Calculated 48 mg/dL (50-129); Osmolality Calculated 299 mOsm/kg (285-295); Potassium 4.5 mmol/L (3.5-5.1); Sodium 143 mmol/L (136-145); Total Bilirubin 0.3 mg/dL (0.15-1.2); Total Protein 6.5 g/dL (6.6-8.7); Triglycerides 135 mg/dL (0-150)
[2024-01-03 15:04] LABS: Creatinine Urine, Random 64 mg/dL (39-259); Microalbum Creatinine Ratio Ur 16 mg/dL (0-20); Microalbumin Random Urine 1 ug/dL (0-20)
== END 2024-01-03 14:00 | disposition home or self-care (01) ==
LOC: LAB 14:00
PROVIDERS: PCP Family Medicine; Visit Provider Internal Medicine
DX: E11.9 Type 2 diabetes mellitus without complications (principal)
CPT/HCPCS: 36415; 80053; 80061; 82044; 83036

== ENCOUNTER → 2024-01-11 08:53 | Outpatient (BNVA) | payer MEDICARE, OTHER, SELFPAY | PROVIDERS: PCP Family Medicine; Visit Provider Internal Medicine | DX: E11.40 Type 2 diabetes mellitus with diabetic neuropathy, unspecified (principal); E78.2 Mixed hyperlipidemia; E11.649 Type 2 diabetes mellitus with hypoglycemia without coma; N39.0 Urinary tract infection, site not specified | CPT/HCPCS: 99214 ==

== ENCOUNTER 2024-04-05 11:26 | Outpatient (CLI) | payer OTHER, SELFPAY ==
[2024-04-05 12:17] LABS: Estmated Average Glucose 214; Hemoglobin A1C 9.1 % (4.0-6.0)
[2024-04-05 12:22] LABS: Alanine Aminotransferase 9 U/L (0-41); Albumin Level 3.6 g/dL (3.5-5.2); Alkaline Phosphatase 97 U/L (40-130); Anion Gap 13.4 (5-19); Aspartate Amino Transferase 9 U/L (0-40); Blood Urea Nitrogen 12 mg/dL (8-23); Carbon Dioxide 29 mmol/L (22-29); Chloride 99 mmol/L (98-107); Chol HDL Ratio 3.03 mg/dL (1.0-5.00); Cholesterol 109 mg/dL (0-200); Globulin 2.4 g/dL (1.3-4.6); Glucose 339 mg/dL (65-115); HDL Cholesterol 36 mg/dL (60-100); LDL Cholesterol Calculated 47 mg/dL (50-129); LDL HDL Ratio 1.31 RATIO (0.00-3.22); Osmolality Calculated 297 mOsm/kg (285-295); Potassium 4.4 mmol/L (3.5-5.1); Sodium 137 mmol/L (136-145); Total Bilirubin 0.3 mg/dL (0.15-1.2); Triglycerides 129 mg/dL (0-150)
[2024-04-05 12:26] LABS: Creatinine Urine, Random 122 mg/dL (39-259); Microalbum Creatinine Ratio Ur 16 mg/dL (0-20); Microalbumin Random Urine 2 ug/dL (0-20)
== END 2024-04-05 11:27 | disposition home or self-care (01) ==
LOC: LAB 11:27
PROVIDERS: PCP Family Medicine; Visit Provider Internal Medicine
DX: E11.9 Type 2 diabetes mellitus without complications (principal); E78.2 Mixed hyperlipidemia; E11.40 Type 2 diabetes mellitus with diabetic neuropathy, unspecified
CPT/HCPCS: 36415; 80053; 80061; 82044; 83036

== ENCOUNTER → 2024-04-12 08:50 | Outpatient (BNVA) | payer OTHER, SELFPAY | PROVIDERS: PCP Family Medicine; Visit Provider Internal Medicine | DX: E78.2 Mixed hyperlipidemia (principal); E10.9 Type 1 diabetes mellitus without complications; N39.0 Urinary tract infection, site not specified; Z79.4 Long term (current) use of insulin; Z79.84 Long term (current) use of oral hypoglycemic drugs | CPT/HCPCS: 99214 ==

== ENCOUNTER → 2024-05-29 09:34 | Outpatient (BNVA) | payer MEDICARE, OTHER, SELFPAY | PROVIDERS: PCP Family Medicine; Referring Provider Family Medicine; Visit Provider Surgery | DX: K40.90 Unilateral inguinal hernia, without obstruction or gangrene, not specified as recurrent | CPT/HCPCS: 99214 ==

== ENCOUNTER 2024-06-18 13:55 | Outpatient (CLI) | payer MEDICARE, OTHER, SELFPAY ==
[2024-06-18 15:04] LABS: Alanine Aminotransferase 10 U/L (0-41); Alkaline Phosphatase 83 U/L (40-130); Anion Gap 12.2 (5-19); Aspartate Amino Transferase 14 U/L (0-40); Blood Urea Nitrogen 15 mg/dL (8-23); Calcium 8.9 mg/dL (8.5-10.5); Carbon Dioxide 30 mmol/L (22-29); Chloride 102 mmol/L (98-107); Chol HDL Ratio 2.62 mg/dL (1.0-5.00); Cholesterol 131 mg/dL (0-200); Globulin 2.3 g/dL (1.3-4.6); Glucose 204 mg/dL (65-115); HDL Cholesterol 50 mg/dL (60-100); LDL Cholesterol Calculated 48 mg/dL (50-129); LDL HDL Ratio 0.96 RATIO (0.00-3.22); Osmolality Calculated 295 mOsm/kg (285-295); Potassium 5.2 mmol/L (3.5-5.1); Sodium 139 mmol/L (136-145); Total Bilirubin 0.3 mg/dL (0.15-1.2); Total Protein 6.3 g/dL (6.6-8.7); Triglycerides 165 mg/dL (0-150)
[2024-06-18 15:07] LABS: Creatinine Urine, Random 73 mg/dL (39-259); Microalbum Creatinine Ratio Ur 14 mg/dL (0-20); Microalbumin Random Urine 1 ug/dL (0-20)
[2024-06-18 15:24] LABS: Estmated Average Glucose 148; Hemoglobin A1C 6.8 % (4.0-6.0)
== END 2024-06-18 13:56 | disposition home or self-care (01) ==
LOC: LAB 13:56
PROVIDERS: PCP Family Medicine; Visit Provider Internal Medicine
DX: E78.2 Mixed hyperlipidemia (principal); E10.9 Type 1 diabetes mellitus without complications
CPT/HCPCS: 36415; 80053; 80061; 82044; 83036

== ENCOUNTER → 2024-07-02 11:56 | Outpatient (BNVA) | payer MEDICARE, OTHER, SELFPAY | PROVIDERS: PCP Family Medicine; Visit Provider Internal Medicine | DX: E78.2 Mixed hyperlipidemia (principal); N39.0 Urinary tract infection, site not specified; E10.9 Type 1 diabetes mellitus without complications; Z79.4 Long term (current) use of insulin; Z79.84 Long term (current) use of oral hypoglycemic drugs | CPT/HCPCS: 99214 ==

== ENCOUNTER 2024-09-23 13:51 | Outpatient (CLI) | payer MEDICARE, OTHER, SELFPAY ==
[2024-09-23 14:38] LABS: Alanine Aminotransferase 10 U/L (0-41); Albumin Level 4.1 g/dL (3.5-5.2); Alkaline Phosphatase 93 U/L (40-130); Anion Gap 14.8 (5-19); Aspartate Amino Transferase 14 U/L (0-40); Blood Urea Nitrogen 36 mg/dL (8-23); Calcium 9.5 mg/dL (8.5-10.5); Carbon Dioxide 28 mmol/L (22-29); Chloride 103 mmol/L (98-107); Chol HDL Ratio 2.76 mg/dL (1.0-5.00); Cholesterol 141 mg/dL (0-200); Globulin 2.4 g/dL (1.3-4.6); Glucose 171 mg/dL (65-115); HDL Cholesterol 51 mg/dL (60-100); LDL Cholesterol Calculated 61 mg/dL (50-129); Osmolality Calculated 304 mOsm/kg (285-295); Potassium 4.8 mmol/L (3.5-5.1); Sodium 141 mmol/L (136-145); Total Bilirubin 0.3 mg/dL (0.15-1.2); Total Protein 6.5 g/dL (6.6-8.7); Triglycerides 146 mg/dL (0-150)
[2024-09-23 14:44] LABS: Creatinine Urine, Random 61 mg/dL (39-259); Microalbum Creatinine Ratio Ur 16 mg/dL (0-20); Microalbumin Random Urine 1 ug/dL (0-20)
[2024-09-23 14:53] LABS: Estmated Average Glucose 140; Hemoglobin A1C 6.5 % (4.0-6.0)
== END 2024-09-23 13:52 | disposition home or self-care (01) ==
PROVIDERS: PCP Family Medicine; Visit Provider Internal Medicine
DX: E78.2 Mixed hyperlipidemia (principal); E10.9 Type 1 diabetes mellitus without complications
CPT/HCPCS: 36415; 80053; 80061; 82044; 83036

== ENCOUNTER → 2024-10-01 11:28 | Outpatient (BNVA) | payer MEDICARE, OTHER, SELFPAY | PROVIDERS: PCP Family Medicine; Visit Provider Internal Medicine | DX: E78.2 Mixed hyperlipidemia (principal); E10.9 Type 1 diabetes mellitus without complications | CPT/HCPCS: 99214 ==

== ENCOUNTER 2024-10-10 07:41 | Emergency (ER) | payer MEDICARE, OTHER, SELFPAY ==
[2024-10-10 07:46] VITALS: BP 164/82; PULSE 69; RESP 16; TEMP 36.5; O2SAT 98; BMI 25.7
--- NOTE | 2024-10-10 07:51 | XR_ITS ---
WS: [id number] XR hip RT 2-3V wo/w pel* [id number] REASON FOR EXAM: FALL, PAIN FINDINGS: Total right hip arthroplasty Components of the arthroplasty are intact and in proper position and alignment. There is an apparent lateral discontinuity of the cortex with slight deformity in the immediate subtrochanteric region, seen on the AP view. This abnormality is not identifiable on the remaining view of the hip. Anterior column and pubic rami are intact. XR/XR hip RT 2-3V wo/w pel* [id number] IMPRESSION: 1 view suspicious for lateral fracture adjacent to the femoral arm of the prost hesis. This may date difficult to evaluate with CT due to the degree of artifact gener ated by the prosthesis.
--- NOTE | 2024-10-10 08:41 | W.ED.FALL ---
HPI - Fall General: Chief Complaint: Fall Stated Complaint: fall Time Seen by Provider: 10/10/24 07:58 History of Present Illness: 74-year-old male presents emergency room after falling while getting out of bed. 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 He is not on any anticoagulants. The pain radiates from his hip down into his knee. He previously had a hip arthroplasty due to osteoarthritis. He recently had an eye surgery he has no pain in the eye still some mild redness. Associated symptoms-after fall: Denies abdominal pain, chest pain or neck pain Related Data Home Medications ?Medication ?Instructions ?Recorded ?Confirmed atenolol 100 mg tablet 100 mg PO DAILY 09/20/19 10/10/24 fluoxetine 20 mg capsule 20 mg PO DAILY 09/20/19 10/10/24 metformin 1,000 mg tablet 1,000 mg PO BID@,09/20/19 10/10/24 omeprazole 20 mg capsule,delayed 20 mg PO BID@09/20/19 10/10/24 release simvastatin 40 mg tablet 20 mg PO QPM 09/20/19 10/10/24 tiotropium bromide 2.5 2 inh inhalation DAILY@09/20/19 10/10/24 mcg/actuation mist for inhalation (Spiriva Respimat) ascorbic acid (vitamin C) 500 mg 500 mg PO DAILY@07/10/20 10/10/24 tablet (Vitamin C) cholecalciferol (vitamin D3) 25 2,000 unit PO QPM 07/10/20 10/10/24 mcg (1,000 unit) capsule (Vitamin D3) losartan 100 mg tablet 50 mg PO QPM 07/10/20 10/10/24 pmllmify-dzo-qgdym acid 0.4 1 tab PO DAILY 07/10/20 10/10/24 mg-lycopene 300 mcg-lutein 250 mcg tablet (Centrum Silver) amlodipine 5 mg tablet 5 mg PO DAILY 12/21/21 10/10/24 docusate sodium 100 mg capsule 100 mg PO BID PRN Constipation 05/26/22 10/10/24 (Colace) amlodipine 2.5 mg tablet 2.5 mg PO DAILY 09/12/23 10/10/24 hydrochlorothiazide 25 mg tablet 12.5 mg PO QAM 11/10/23 10/10/24 Previous Rx's ?Medication ?Instructions ?Recorded dutasteride 0.5 mg capsule 0.5 mg PO BEDTIME #90 caps 12/22/22 tamsulosin 0.4 mg capsule 0.4 mg PO DAILY #90 caps 12/22/22 galantamine 4 mg tablet 4 mg PO BID #180 tabs 12/27/23 insulin aspart U-100 100 unit/mL 80 unit (0.8 mL) SUBCUT .via pump 10/01/24 subcutaneous solution (Novolog per day #80 mL U-100 Insulin aspart) hydrocodone 5 mg-acetaminophen 325 1 tab PO Q6H PRN pain #28 tabs 10/10/24 mg tablet Allergies Allergy/AdvReac Type Severity Reaction Status Date / Time No Known Allergies Allergy Verified 10/01/24 08:23 Review of Systems Const: Denies: fever(s) or chills Card: Denies: chest pain Resp: Denies: dyspnea GI: Denies: abdominal pain : Denies: dysuria, urinary frequency or urinary urgency Musc: Reports: joint pain; Denies: neck pain or back pain Skin/Breast: Denies: rash PFSH ED PFSH: Medical History Asthma Left ureteral calculus Bilateral renal stones BPH NOS w ur obs/LUTS High cholesterol COPD (chronic obstructive pulmonary disease) Diabetes Degenerative arthritis of knee Family History Father Diabetes Other Stroke Social History Smoking and tobacco/nicotine status: never used tobacco/nicotine Alcohol intake: never Substance/Drug Use: never Marital status: Current occupational status: retired Physical Exam Const: GENERAL APPEARANCE: cooperative ORIENTATION/CONSCIOUSNESS: Yes awake, Yes oriented to person, Yes oriented to place and Yes oriented to time HENMT: COMMON NORMALS: normocephalic, atraumatic and hearing grossly normal bilaterally HEAD & SCALP: normocephalic and atraumatic Resp: COMMON NORMALS: normal respiratory effort, No retractions, No use of accessory muscles and clear to auscultation bilaterally AUSCULTATION: clear to auscultation bilaterally Cardio: COMMON NORMALS: regular rate, regular rhythm and No murmurs present (Cardio) RATE: regular rate RHYTHM: regular rhythm GI: COMMON NORMALS: Soft to palpation and No hepatosplenomegaly present AUSCULTATION: Yes normoactive bowel sounds PALPATION: Yes Soft to palpation, No Tenderness to palpation present (GI), No Guarding due to palpation present (GI) and Yes No hepatosplenomegaly present Extremity: COMMON NORMALS: normal to inspection, capillary refill normal, no clubbing, cyanosis or edema, no calf tenderness and no pedal edema NARRATIVE EXTREMITY EXAM: Tenderness with palpation over the right greater trochanter no deformity Neuro: SENSORIUM/ORIENTATION: Yes oriented to person, Yes oriented to place and Yes oriented to time Skin: COMMON NORMALS: no rashes or lesions noted GENERAL SKIN EXAM: no rashes or lesions noted Course Vital Signs: Vital signs: Vital Signs Temperature 97.7 F 10/10/24 07:46 Pulse Rate 76 10/10/24 10:50 Respiratory Rate 16 10/10/24 07:46 Blood Pressure 154/73 10/10/24 10:50 Pulse Oximetry 98 10/10/24 10:50 Oxygen Delivery Me thod Room Air 10/10/24 07:46 MDM - Fall Medical Decision Making Nondisplaced greater trochanter fracture. Reviewed with Dr. Pacheco who is on-call for orthopedics he looked through the films he concurred however he states intervention not necessary at this point will discharge patient home with toe-touch weightbearing with a walker. PT came to see the patient and he is capable of managing the walker. I will have him follow-up with orthopedics in 2 weeks with a repeat x-ray. No other injuries. Medical Records I reviewed the patient's medical records. Lab Data I reviewed the patient's lab results. Radiology Impressions Hip/Pelvis X-Ray 10/10/24 07:51 IMPRESSION: 1 view suspicious for lateral fracture adjacent to the femoral arm of the prosthesis. This may date difficult to evaluate with CT due to the degree of artifact generated by the prosthesis. Femur X-Ray 10/10/24 08:45 IMPRESSION: Femur distal to the subtrochanteric region is unremarkable. Potential subtrochanteric fracture as above. All radiology interpretation(s) finalized by discharge Discharge Plan Discharge Patient Disposition: Home Clinical Impression: Closed fracture of greater trochanter of right femur Condition: Stable Prescriptions: New hydrocodone-acetaminophen 5-325 mg tablet 1 tab PO Q6H PRN (Reason: pain) Qty: 28 0RF No Action atenolol 100 mg tablet 100 mg PO DAILY simvastatin 40 mg tablet 20 mg PO QPM omeprazole 20 mg capsule,delayed release(DR/EC) 20 mg PO BID@09,18 fluoxetine 20 mg capsule 20 mg PO DAILY Spiriva Respimat 2.5 mcg/actuation mist 2 inh INHALATION DAILY@18 metformin 1,000 mg tablet 1,000 mg PO BID@09,18 amlodipine 5 mg tablet 5 mg PO DAILY Rx Instructions: ALONG WITH 2.5MG TO=7.5MG DAILY insulin aspart U-100 [Novolog U-100 Insulin aspart] 100 unit/mL solution 80 unit SUBCUT .via pump per day Qty: 80 3RF tamsulosin 0.4 mg capsule 0.4 mg PO DAILY Qty: 90 3RF dutasteride 0.5 mg capsule 0.5 mg PO BEDTIME Qty: 90 3RF galantamine 4 mg tablet 4 mg PO BID Qty: 180 3RF amlodipine 2.5 mg tablet 2.5 mg PO DAILY Rx Instructions: ALONG WITH 5MG TO =7.5MG DAILLY ascorbic acid (vitamin C) [Vitamin C] 500 mg Tablet 500 mg PO DAILY@09 losartan 100 mg tablet 50 mg PO QPM cholecalciferol (vitamin D3) [Vitamin D3] 25 mcg (1,000 unit) Capsule 2,000 unit PO QPM Centrum Silver 0.4-300-250 mg-mcg-mcg Tablet 1 tab PO DAILY docusate sodium [Colace] 100 mg capsule 100 mg PO BID PRN (Reason: Constipation) hydrochlorothiazide 25 mg Tablet 12.5 mg PO QAM Discharge Orders: Discharge ED (Routine); Ordered 10/10/24 Ordered By: Valentin Garcia Other Ambulatory Orders: DME: [employer] (Order) Location: None Selected Ordered By: Valentin Garcia Referrals: Clarence Bradford MD [Primary Care Provider] - Discharge Diet: Usual diet Discharge Activity: Resume usual activity Patient Instructions: Opioid Safety, Pain Management Activity Restrictions/Additional Instructions: Thank you for choosing [facility] for your healthcare needs today. It is very important that you follow up as instructed or that you return to the Emergency Department should you have concerns or if your condition changes or worsens in any way. You were seen in the emergency room for right hip pain. On x-ray there is a greater trochanter fracture. This is a portion of the bone around the artificial hip. This is a stable fracture. I reviewed the fracture with the orthopedic physician on-call. It does not require surgery. It should heal in place. You will require pain medications. You also should not bear full weight on that leg use a walker toe-touch weightbearing as tolerated. You should follow-up with orthopedics in 2 weeks for repeat x-ray. Print Language: Lithuanian Coding Level of Care Code ED Desizing Pad Operator for Josh Yee
--- NOTE | 2024-10-10 08:45 | XR_ITS ---
WS: [id number] XR femur RT min 2V* [id number] REASON FOR EXAM: pain FINDINGS: The femur distal to the intramedullary arm of the total left hip prosthesis is intact without fracture. The upper femur on this examination again is suspicious for a lateral fracture in the subtrochanteric region adjacent to the femoral arm of the prosthesis. XR/XR femur RT min 2V* [id number] IMPRESSION: Femur distal to the subtrochanteric region is unremarkable. Potential subtrochanteric fracture as above.
[2024-10-10] MEDS: ondansetron 4 MG Tablet PO (10:20)
[2024-10-10] MEDS: morphine 4 mg/mL SDV 1 mL 2 MG IM (10:20)
[2024-10-10 10:50] VITALS: BP 154/73; PULSE 76; O2SAT 98
--- NOTE | 2024-10-10 11:23 | DCPLANNER ---
messaged ortho for er f/u
--- NOTE | 2024-10-10 15:30 | PC.NURSE ---
NURSE TRIED TO WASTE MORPHINE AFTER PT WAS D/C, [facility] DID NOT HAVE OPTION TO WASTE MORPHINE. JAMES CAPUTO WITNESSED NURSE WASTE MORPHINE.
== END 2024-10-10 10:51 | disposition home or self-care (01) ==
PROVIDERS: Emergency Provider Family Medicine; PCP Family Medicine
DX: S72.111A Displaced fracture of greater trochanter of right femur, initial encounter for closed fracture (principal); Z79.84 Long term (current) use of oral hypoglycemic drugs; Z79.4 Long term (current) use of insulin; J44.9 Chronic obstructive pulmonary disease, unspecified; E11.9 Type 2 diabetes mellitus without complications; Z96.641 Presence of right artificial hip joint; W06.XXXA Fall from bed, initial encounter
CPT/HCPCS: 73502; 73552; 96372; 97116; 97161; 99284; J2270; Q0162

== ENCOUNTER → 2024-10-15 11:18 | Outpatient (BNVA) | payer MEDICARE, OTHER, SELFPAY | PROVIDERS: PCP Family Medicine; Visit Provider Orthopaedic Surgery | DX: S72.111A Displaced fracture of greater trochanter of right femur, initial encounter for closed fracture (principal); W18.39XA Other fall on same level, initial encounter | CPT/HCPCS: 73552; 99204 ==

== ENCOUNTER → 2024-10-29 09:18 | Outpatient (BNVA) | payer MEDICARE, OTHER, SELFPAY | PROVIDERS: PCP Family Medicine; Visit Provider Orthopaedic Surgery | DX: S72.109 Unspecified trochanteric fracture of unspecified femur (principal); M25.551 Pain in right hip; X58.XXXD Exposure to other specified factors, subsequent encounter | CPT/HCPCS: 73552; 99213 ==

== ENCOUNTER → 2024-11-14 09:50 | Outpatient (BNVA) | payer MEDICARE, OTHER, SELFPAY | PROVIDERS: PCP Family Medicine; Visit Provider Nurse Practitioner Family | DX: L82.1 Other seborrheic keratosis (principal); D22.5 Melanocytic nevi of trunk; L57.8 Other skin changes due to chronic exposure to nonionizing radiation; L81.4 Other melanin hyperpigmentation; L23.9 Allergic contact dermatitis, unspecified cause; L57.0 Actinic keratosis | CPT/HCPCS: 17000; 99204 ==

== ENCOUNTER → 2024-11-26 09:28 | Outpatient (BNVA) | payer MEDICARE, OTHER, SELFPAY | PROVIDERS: PCP Family Medicine; Visit Provider Orthopaedic Surgery | DX: M25.551 Pain in right hip (principal); S72.101D Unspecified trochanteric fracture of right femur, subsequent encounter for closed fracture with routine healing; X58.XXXD Exposure to other specified factors, subsequent encounter | CPT/HCPCS: 73502; 99213 ==

== ENCOUNTER 2024-12-01 16:09 | Emergency (ER) | payer MEDICARE, OTHER, SELFPAY ==
[2024-12-01] VITALS (9 sets, daily range): BP systolic 132–174; BP diastolic 64–80; PULSE 56–62; RESP 16; TEMP 36.3; O2SAT 92–95
[2024-12-01 16:19] LABS: Glucose Point of Care > 600 mg/dL (70-110)
--- NOTE | 2024-12-01 16:25 | W.ED.RECABL ---
Documented by User: Edwar Wilkins MD 12/01/24 16:28 HPI - Recheck/Abnormal Lab/Rx General: Chief Complaint: Recheck/Abnormal Lab/Rx Stated Complaint: blood sugar over 500 Time Seen by Provider: 12/01/24 16:14 Source: patient Mode of arrival: ambulatory Limitations: no limitations History of Present Illness: 74-year-old male who has a history of diabetes he uses an insulin pump states he is unsure if his insulin pump is working because his blood sugar is running over 500 and is now over 600 he given himself a bolus of 6 through it and his blood sugar is still rating over 600 here. He does have other insulin at home and vials but did not use it he has no complaints denies any vomiting or diarrhea Related Data Home Medications ?Medication ?Instructions ?Recorded ?Confirmed atenolol 100 mg tablet 100 mg PO DAILY 09/20/19 11/26/24 fluoxetine 20 mg capsule 20 mg PO DAILY 09/20/19 11/26/24 metformin 1,000 mg tablet 1,000 mg PO BID@,09/20/19 11/26/24 omeprazole 20 mg capsule,delayed 20 mg PO BID@,09/20/19 11/26/24 release simvastatin 40 mg tablet 20 mg PO QPM 09/20/19 11/26/24 tiotropium bromide 2.5 2 inh inhalation DAILY@09/20/19 11/26/24 mcg/actuation mist for inhalation (Spiriva Respimat) ascorbic acid (vitamin C) 500 mg 500 mg PO DAILY@09 07/10/20 11/26/24 tablet (Vitamin C) cholecalciferol (vitamin D3) 25 2,000 unit PO QPM 07/10/20 11/26/24 mcg (1,000 unit) capsule (Vitamin D3) losartan 100 mg tablet 50 mg PO QPM 07/10/20 11/26/24 wudrnsny-wen-ttovb acid 0.4 1 tab PO DAILY 07/10/20 11/26/24 mg-lycopene 300 mcg-lutein 250 mcg tablet (Centrum Silver) amlodipine 5 mg tablet 5 mg PO DAILY 12/21/21 11/26/24 docusate sodium 100 mg capsule 100 mg PO BID PRN Constipation 05/26/22 11/26/24 (Colace) amlodipine 2.5 mg tablet 2.5 mg PO DAILY 09/12/23 11/26/24 hydrochlorothiazide 25 mg tablet 12.5 mg PO QAM 11/10/23 11/26/24 albuterol sulfate 90 mcg/actuation 2 puff inhalation Q6H PRN 10/15/24 11/26/24 aerosol inhaler (Ventolin HFA) Previous Rx's ?Medication ?Instructions ?Recorded dutasteride 0.5 mg capsule 0.5 mg PO BEDTIME #90 caps 12/22/22 tamsulosin 0.4 mg capsule 0.4 mg PO DAILY #90 caps 12/22/22 galantamine 4 mg tablet 4 mg PO BID #180 tabs 12/27/23 insulin aspart U-100 100 unit/mL 80 unit (0.8 mL) SUBCUT .via pump 10/01/24 subcutaneous solution (Novolog per day #80 mL U-100 Insulin aspart) Allergies Allergy/AdvReac Type Severity Reaction Status Date / Time No Known Allergies Allergy Verified 12/01/24 16:20 Review of Systems Const: Denies: fever(s), chills, body aches or change in appetite ENMT: Denies: throat pain or dental pain Card: Denies: chest pain Resp: Denies: dyspnea GI: Denies: abdominal pain, nausea, vomiting or diarrhea Musc: Denies: neck pain or back pain Skin/Breast: Denies: rash Neuro: Denies: headache(s) PFSH ED PFSH: Medical History Asthma Left ureteral calculus Bilateral renal stones BPH NOS w ur obs/LUTS High cholesterol COPD (chronic obstructive pulmonary disease) Diabetes Degenerative arthritis of knee Family History Father Diabetes Other Stroke Social History Smoking and tobacco/nicotine status: former use of tobacco/nicotine Alcohol intake: never Substance/Drug Use: never Marital status: Current occupational status: retired Physical Exam Const: COMMON NORMALS: no acute distress, patient oriented x3 and healthy appearing HENMT: COMMON NORMALS: normocephalic and atraumatic HEAD & SCALP: normocephalic and atraumatic Eye: COMMON NORMALS: conjunctivae normal CONJUNCTIVA: Yes conjunctivae normal Neck/C-Spine: COMMON NORMALS: full ROM Chest: COMMONS NORMALS: normal inspection of the chest Resp: COMMON NORMALS: normal respiratory effort Cardio: COMMON NORMALS: regular rate RATE: regular rate GI: INSPECTION: Yes normal to inspection Extremity: COMMON NORMALS: normal to inspection and full ROM Neuro: COMMON NORMALS: patient oriented x3, moves all extremities and no focal motor deficits Psych: COMMON NORMALS: mental status grossly normal, Normal thought process present and cooperative THOUGHT PROCESS: Normal thought process present Skin: COMMON NORMALS: no rashes or lesions noted and no wounds GENERAL SKIN EXAM: no rashes or lesions noted Course Vital Signs: Vital signs: Vital Signs Temperature 97.4 F L 12/01/24 16:14 Pulse Rate 58 L 12/01/24 21:48 Respiratory Rate 16 12/01/24 16:14 Blood Pressure 132/72 12/01/24 21:48 Pulse Oximetry 94 12/01/24 21:48 Oxygen Delivery Me thod Room Air 12/01/24 20:00 MDM - Recheck/Abnormal Lab/Rx Lab Data 12/01/24 16:42 12/01/24 16:42 Laboratory Results WBC 5.05 10^3/uL (3.29-11.43) 12/01/24 16:42 RBC 4.61 10^6/uL (3.85-5.65) 12/01/24 16:42 Hgb 12.60 g/dL (11.27-16.99) 12/01/24 16:42 Hct 37.5 % (37-53) 12/01/24 16:42 MCV 81.3 fl (82-101) L 12/01/24 16:42 MCH 27.3 pg (27-33) 12/01/24 16:42 MCHC 33.6 g/dL (30-55) 12/01/24 16:42 RDW 13.6 % (12.1-15.1) 12/01/24 16:42 Plt Count 113 10^3/cmm (157-399) L 12/01/24 16:42 MPV 9.3 fL (7.4-10.4) 12/01/24 16:42 Neut % (Auto) 67.7 % 12/01/24 16:42 Lymph % (Auto) 18.6 % 12/01/24 16:42 Milam % (Auto) 9.1 % 12/01/24 16:42 Eos % (Auto) 2.4 % 12/01/24 16:42 Baso % (Auto) 1.0 % 12/01/24 16:42 Neut # (Auto) 3.42 10^3/uL (1.8-7.7) 12/01/24 16:42 Lymph # (Auto) 0.9 10^3/uL (0.8-4.8) 12/01/24 16:42 Milam # (Auto) 0.5 10^3/uL (0.2-0.9) 12/01/24 16:42 Eos # (Auto) 0.1 10^3/uL (0.0-0.8) 12/01/24 16:42 Baso # (Auto) 0.1 10^3/uL (0.0-0.1) 12/01/24 16:42 Nucleated RBC % (auto) 0 % 12/01/24 16:42 Nucleated RBCs # 0.0 /100WBC 12/01/24 16:42 Specimen Type Arterial 12/01/24 16:20 Sample Site Radial, right 12/01/24 16:20 ABG pH 7.45 (7.35-7.45) 12/01/24 16:20 ABG pCO2 37.1 mmHg (35-45) 12/01/24 16:20 ABG pO2 69.4 mmHg (80.0-100.0) L 12/01/24 16:20 ABG PO2/FiO2 Ratio 330 12/01/24 16:20 ABG HCO3 25.9 mmol/L (22-26) 12/01/24 16:20 ABG O2 Saturation 93.2 12/01/24 16:20 ABG Base Excess 2.0 mmol/L (-2.0-2.0) 12/01/24 16:20 Junior Test Pos 12/01/24 16:20 A-a O2 Gradient 4.5 mmHg (5-10) L 12/01/24 16:20 Hematocrit 40.1 % (42-52) L 12/01/24 16:20 Hgb O2 Saturation 92.2 % (95-100) L 12/01/24 16:20 Carboxyhemoglobin 0.2 %THgb (0.4-20.1) L 12/01/24 16:20 Methemoglobin 0.9 % (0.4-1.5) 12/01/24 16:20 Total Hemoglobin 13.1 g/dL (14-18) L 12/01/24 16:20 Sodium 132.0 mmol/L (131-143) 12/01/24 16:20 Potassium 4.5 mmol/L (3.5-5.0) 12/01/24 16:20 Glucose 658.0 mg/dL (70-115) H 12/01/24 16:20 Ionized Calcium 1.2 mmol/L (1.1-1.4) 12/01/24 16:20 O2 Delivery Device Room air 12/01/24 16:20 FiO2 21.0 % 12/01/24 16:20 Rail Car Repairer ID Amh 12/01/24 16:20 Sodium 131 mmol/L (136-145) L 12/01/24 16:42 Potassium 4.8 mmol/L (3.5-5.1) 12/01/24 16:42 Chloride 96 mmol/L (98-107) L 12/01/24 16:42 Carbon Dioxide 24 mmol/L (22-29) 12/01/24 16:42 Anion Gap 15.8 (5-19) 12/01/24 16:42 BUN 22 mg/dL (8-23) 12/01/24 16:42 Creatinine 1.1 mg/dL (0.7-1.2) 12/01/24 16:42 GFR Calculation Not Reportable 12/01/24 16:42 Glucose 643 mg/dL (65-115) H* 12/01/24 16:42 POC Glucose 240 mg/dL (70-110) H 12/01/24 21:20 Calculated Osmolality 306 mOsm/kg (285-295) H 12/01/24 16:42 Calcium 8.9 mg/dL (8.5-10.5) 12/01/24 16:42 Total Bilirubin 0.3 mg/dL (0.15-1.2) 12/01/24 16:42 AST 11 U/L (0-40) 12/01/24 16:42 ALT 15 U/L (0-41) 12/01/24 16:42 Alkaline Phosphatase 113 U/L (40-130) 12/01/24 16:42 Total Protein 6.2 g/dL (6.6-8.7) L 12/01/24 16:42 Albumin 3.7 g/dL (3.5-5.2) 12/01/24 16:42 Globulin 2.5 g/dL (1.3-4.6) 12/01/24 16:42 Discharge Plan Discharge Patient Disposition: Home Clinical Impression: Type 1 diabetes, Hyperglycemia due to diabetes mellitus Condition: Stable Prescriptions: No Action atenolol 100 mg tablet 100 mg PO DAILY simvastatin 40 mg tablet 20 mg PO QPM omeprazole 20 mg capsule,delayed release(DR/EC) 20 mg PO BID@09,18 fluoxetine 20 mg capsule 20 mg PO DAILY Spiriva Respimat 2.5 mcg/actuation mist 2 inh INHALATION DAILY@18 metformin 1,000 mg tablet 1,000 mg PO BID@09,18 amlodipine 5 mg tablet 5 mg PO DAILY Rx Instructions: ALONG WITH 2.5MG TO=7.5MG DAILY insulin aspart U-100 [Novolog U-100 Insulin aspart] 100 unit/mL solution 80 unit SUBCUT .via pump per day Qty: 80 3RF albuterol sulfate [Ventolin HFA] 90 mcg/actuation HFA aerosol inhaler 2 puff inhalation Q6H PRN tamsulosin 0.4 mg capsule 0.4 mg PO DAILY Qty: 90 3RF dutasteride 0.5 mg capsule 0.5 mg PO BEDTIME Qty: 90 3RF galantamine 4 mg tablet 4 mg PO BID Qty: 180 3RF amlodipine 2.5 mg tablet 2.5 mg PO DAILY Rx Instructions: ALONG WITH 5MG TO =7.5MG DAILLY ascorbic acid (vitamin C) [Vitamin C] 500 mg Tablet 500 mg PO DAILY@09 losartan 100 mg tablet 50 mg PO QPM cholecalciferol (vitamin D3) [Vitamin D3] 25 mcg (1,000 unit) Capsule 2,000 unit PO QPM Centrum Silver 0.4-300-250 mg-mcg-mcg Tablet 1 tab PO DAILY docusate sodium [Colace] 100 mg capsule 100 mg PO BID PRN (Reason: Constipation) hydrochlorothiazide 25 mg Tablet 12.5 mg PO QAM Discharge Orders: Discharge ED (Routine); Ordered 12/01/24 Ordered By: Simón Barron Referrals: Clarence Bradford MD [Primary Care Provider] - Daniel Gates MD [Physician] - 1-3 days Patient Instructions: Diabetic Hyperglycemia (ED), Opioid Safety, Pain Management Activity Restrictions/Additional Instructions: Use sliding scale insulin failure of your insulin pump until you can see your surgical elastic knitter hand frame or get your pump replaced or repaired. Drink plenty of clear, nonsugar liquids. Return for any problems, especially vomiting/diarrhea/dehydration. Call your doctor tomorrow for follow-up appointment. Print Language: Luxembourger Coding Level of Care Code ED Night Shift for Chg Fwd Documented by User: Simón Barron, 12/02/24 04:30 HPI - Recheck/Abnormal Lab/Rx General: Chief Complaint: Recheck/Abnormal Lab/Rx Stated Complaint: blood sugar over 500 Time Seen by Provider: 12/01/24 16:14 Related Data Home Medications ?Medication ?Instructions ?Recorded ?Confirmed atenolol 100 mg tablet 100 mg PO DAILY 09/20/19 11/26/24 fluoxetine 20 mg capsule 20 mg PO DAILY 09/20/19 11/26/24 metformin 1,000 mg tablet 1,000 mg PO BID@,09/20/19 11/26/24 omeprazole 20 mg capsule,delayed 20 mg PO BID@,09/20/19 11/26/24 release simvastatin 40 mg tablet 20 mg PO QPM 09/20/19 11/26/24 tiotropium bromide 2.5 2 inh inhalation DAILY@09/20/19 11/26/24 mcg/actuation mist for inhalation (Spiriva Respimat) ascorbic acid (vitamin C) 500 mg 500 mg PO DAILY@07/10/20 11/26/24 tablet (Vitamin C) cholecalciferol (vitamin D3) 25 2,000 unit PO QPM 07/10/20 11/26/24 mcg (1,000 unit) capsule (Vitamin D3) losartan 100 mg tablet 50 mg PO QPM 07/10/20 11/26/24 mthphjgn-alm-fxdqa acid 0.4 1 tab PO DAILY 07/10/20 11/26/24 mg-lycopene 300 mcg-lutein 250 mcg tablet (Centrum Silver) amlodipine 5 mg tablet 5 mg PO DAILY 12/21/21 11/26/24 docusate sodium 100 mg capsule 100 mg PO BID PRN Constipation 05/26/22 11/26/24 (Colace) amlodipine 2.5 mg tablet 2.5 mg PO DAILY 09/12/23 11/26/24 hydrochlorothiazide 25 mg tablet 12.5 mg PO QAM 11/10/23 11/26/24 albuterol sulfate 90 mcg/actuation 2 puff inhalation Q6H PRN 10/15/24 11/26/24 aerosol inhaler (Ventolin HFA) Previous Rx's ?Medication ?Instructions ?Recorded dutasteride 0.5 mg capsule 0.5 mg PO BEDTIME #90 caps 12/22/22 tamsulosin 0.4 mg capsule 0.4 mg PO DAILY #90 caps 12/22/22 galantamine 4 mg tablet 4 mg PO BID #180 tabs 12/27/23 insulin aspart U-100 100 unit/mL 80 unit (0.8 mL) SUBCUT .via pump 10/01/24 subcutaneous solution (Novolog per day #80 mL U-100 Insulin aspart) Allergies Allergy/AdvReac Type Severity Reaction Status Date / Time No Known Allergies Allergy Verified 12/01/24 16:20 [facility] ED PFSH: Medical History Asthma Left ureteral calculus Bilateral renal stones BPH NOS w ur obs/LUTS High cholesterol COPD (chronic obstructive pulmonary disease) Diabetes Degenerative arthritis of knee Family History Father Diabetes Other Stroke Social History Smoking and tobacco/nicotine status: former use of tobacco/nicotine Alcohol intake: never Substance/Drug Use: never Marital status: Current occupational status: retired Course Vital Signs: Vital signs: Vital Signs Temperature 97.4 F L 12/01/24 16:14 Pulse Rate 58 L 12/01/24 21:48 Respiratory Rate 16 04/27/25 16:14 Blood Pressure 132/72 12/01/24 21:48 Pulse Oximetry 94 12/01/24 21:48 Oxygen Delivery Me thod Room Air 12/01/24 20:00 MDM - Recheck/Abnormal Lab/Rx Medical Decision Making 74-year-old male with hyperglycemia checked out at shift change. His insulin pump was not working appropriately. His blood sugar on arrival is 643. By the previous physician, insulin ordered, blood sugars down in the 400s now. Repeating insulin now. He is received fluid bolus. Other laboratory is not remarkable. pH is normal at 7.45, with no gap acidosis. He has insulin at home. Once the sugar comes down, he should be able to go home on sliding scale Lab Data 12/01/24 16:42 12/01/24 16:42 Laboratory Results WBC 5.05 10^3/uL (3.29-11.43) 12/01/24 16:42 RBC 4.61 10^6/uL (3.85-5.65) 12/01/24 16:42 Hgb 12.60 g/dL (11.27-16.99) 12/01/24 16:42 Hct 37.5 % (37-53) 12/01/24 16:42 MCV 81.3 fl (82-101) L 12/01/24 16:42 MCH 27.3 pg (27-33) 12/01/24 16:42 MCHC 33.6 g/dL (30-55) 12/01/24 16:42 RDW 13.6 % (12.1-15.1) 12/01/24 16:42 Plt Count 113 10^3/cmm (157-399) L 12/01/24 16:42 MPV 9.3 fL (7.4-10.4) 12/01/24 16:42 Neut % (Auto) 67.7 % 12/01/24 16:42 Lymph % (Auto) 18.6 % 12/01/24 16:42 Milam % (Auto) 9.1 % 12/01/24 16:42 Eos % (Auto) 2.4 % 12/01/24 16:42 Baso % (Auto) 1.0 % 12/01/24 16:42 Neut # (Auto) 3.42 10^3/uL (1.8-7.7) 12/01/24 16:42 Lymph # (Auto) 0.9 10^3/uL (0.8-4.8) 12/01/24 16:42 Milam # (Auto) 0.5 10^3/uL (0.2-0.9) 12/01/24 16:42 Eos # (Auto) 0.1 10^3/uL (0.0-0.8) 12/01/24 16:42 Baso # (Auto) 0.1 10^3/uL (0.0-0.1) 12/01/24 16:42 Nucleated RBC % (auto) 0 % 12/01/24 16:42 Nucleated RBCs # 0.0 /100WBC 12/01/24 16:42 Specimen Type Arterial 12/01/24 16:20 Sample Site Radial, right 12/01/24 16:20 ABG pH 7.45 (7.35-7.45) 12/01/24 16:20 ABG pCO2 37.1 mmHg (35-45) 12/01/24 16:20 ABG pO2 69.4 mmHg (80.0-100.0) L 12/01/24 16:20 ABG PO2/FiO2 Ratio 330 12/01/24 16:20 ABG HCO3 25.9 mmol/L (22-26) 12/01/24 16:20 ABG O2 Saturation 93.2 12/01/24 16:20 ABG Base Excess 2.0 mmol/L (-2.0-2.0) 12/01/24 16:20 Junior Test Pos 12/01/24 16:20 A-a O2 Gradient 4.5 mmHg (5-10) L 12/01/24 16:20 Hematocrit 40.1 % (42-52) L 12/01/24 16:20 Hgb O2 Saturation 92.2 % (95-100) L 12/01/24 16:20 Carboxyhemoglobin 0.2 %THgb (0.4-20.1) L 12/01/24 16:20 Methemoglobin 0.9 % (0.4-1.5) 12/01/24 16:20 Total Hemoglobin 13.1 g/dL (14-18) L 12/01/24 16:20 Sodium 132.0 mmol/L (131-143) 12/01/24 16:20 Potassium 4.5 mmol/L (3.5-5.0) 12/01/24 16:20 Glucose 658.0 mg/dL (70-115) H 12/01/24 16:20 Ionized Calcium 1.2 mmol/L (1.1-1.4) 12/01/24 16:20 O2 Delivery Device Room air 12/01/24 16:20 FiO2 21.0 % 12/01/24 16:20 Rail Car Repairer ID Amh 12/01/24 16:20 Sodium 131 mmol/L (136-145) L 12/01/24 16:42 Potassium 4.8 mmol/L (3.5-5.1) 12/01/24 16:42 Chloride 96 mmol/L (98-107) L 12/01/24 16:42 Carbon Dioxide 24 mmol/L (22-29) 12/01/24 16:42 Anion Gap 15.8 (5-19) 12/01/24 16:42 BUN 22 mg/dL (8-23) 12/01/24 16:42 Creatinine 1.1 mg/dL (0.7-1.2) 12/01/24 16:42 GFR Calculation Not Reportable 12/01/24 16:42 Glucose 643 mg/dL (65-115) H* 12/01/24 16:42 POC Glucose 240 mg/dL (70-110) H 12/01/24 21:20 Calculated Osmolality 306 mOsm/kg (285-295) H 12/01/24 16:42 Calcium 8.9 mg/dL (8.5-10.5) 12/01/24 16:42 Total Bilirubin 0.3 mg/dL (0.15-1.2) 12/01/24 16:42 AST 11 U/L (0-40) 12/01/24 16:42 ALT 15 U/L (0-41) 12/01/24 16:42 Alkaline Phosphatase 113 U/L (40-130) 12/01/24 16:42 Total Protein 6.2 g/dL (6.6-8.7) L 12/01/24 16:42 Albumin 3.7 g/dL (3.5-5.2) 12/01/24 16:42 Globulin 2.5 g/dL (1.3-4.6) 12/01/24 16:42 No radiology studies performed this visit Discharge Plan Discharge Patient Disposition: Home Clinical Impression: Type 1 diabetes, Hyperglycemia due to diabetes mellitus Condition: Stable Prescriptions: No Action atenolol 100 mg tablet 100 mg PO DAILY simvastatin 40 mg tablet 20 mg PO QPM omeprazole 20 mg capsule,delayed release(DR/EC) 20 mg PO BID@09,18 fluoxetine 20 mg capsule 20 mg PO DAILY Spiriva Respimat 2.5 mcg/actuation mist 2 inh INHALATION DAILY@18 metformin 1,000 mg tablet 1,000 mg PO BID@09,18 amlodipine 5 mg tablet 5 mg PO DAILY Rx Instructions: ALONG WITH 2.5MG TO=7.5MG DAILY insulin aspart U-100 [Novolog U-100 Insulin aspart] 100 unit/mL solution 80 unit SUBCUT .via pump per day Qty: 80 3RF albuterol sulfate [Ventolin HFA] 90 mcg/actuation HFA aerosol inhaler 2 puff inhalation Q6H PRN tamsulosin 0.4 mg capsule 0.4 mg PO DAILY Qty: 90 3RF dutasteride 0.5 mg capsule 0.5 mg PO BEDTIME Qty: 90 3RF galantamine 4 mg tablet 4 mg PO BID Qty: 180 3RF amlodipine 2.5 mg tablet 2.5 mg PO DAILY Rx Instructions: ALONG WITH 5MG TO =7.5MG DAILLY ascorbic acid (vitamin C) [Vitamin C] 500 mg Tablet 500 mg PO DAILY@09 losartan 100 mg tablet 50 mg PO QPM cholecalciferol (vitamin D3) [Vitamin D3] 25 mcg (1,000 unit) Capsule 2,000 unit PO QPM Centrum Silver 0.4-300-250 mg-mcg-mcg Tablet 1 tab PO DAILY docusate sodium [Colace] 100 mg capsule 100 mg PO BID PRN (Reason: Constipation) hydrochlorothiazide 25 mg Tablet 12.5 mg PO QAM Discharge Orders: Discharge ED (Routine); Ordered 12/01/24 Ordered By: Simón Barron Referrals: Clarence Bradford MD [Primary Care Provider] - Daniel Gates MD [Physician] - 1-3 days Patient Instructions: Diabetic Hyperglycemia (ED), Opioid Safety, Pain Management Activity Restrictions/Additional Instructions: Use sliding scale insulin failure of your insulin pump until you can see your surgical elastic knitter hand frame or get your pump replaced or repaired. Drink plenty of clear, nonsugar liquids. Return for any problems, especially vomiting/diarrhea/dehydration. Call your doctor tomorrow for follow-up appointment. Print Language: Luxembourger Coding Level of Care Code ED Night Shift for Josh Yee
[2024-12-01 16:33] LABS: ABG PCO2 37.1 mmHg (35-45); ABG PH Result 7.45 (7.35-7.45); Alveolar-Arterial Oxygen Gradi 4.5 mmHg (5-10); Arterial Blood Gas Hematocrit 40.1 % (42-52); Blood Gas Allen Test Pos; Blood Gas Operator Identificat AMH; Blood Gas Sample Site Radial, right; Blood Gas Sample Type Arterial; Carboxyhemoglobin 0.2 %THgb (0.4-20.1); HCO3 ABG 25.9 mmol/L (22-26); HGB O2 Sat 92.2 % (95-100); Ionized Calcium Level - ABG 1.2 mmol/L (1.1-1.4); Methemoglobin 0.9 % (0.4-1.5); Oxygen Device ROOM AIR; Oxygen Saturation ABG 93.2; PO2 ABG 69.4 mmHg (80.0-100.0); PO2 FiO2 Ratio Arterial Blood 330; Potassium Level - ABG 4.5 mmol/L (3.5-5.0); Total Hemoglobin 13.1 g/dL (14-18)
[2024-12-01 16:48] LABS: Basophils # 0.1 10^3/uL (0.0-0.1); Eosinophils # 0.1 10^3/uL (0.0-0.8); Eosinophils % 2.4 %; Hematocrit 37.5 % (37-53); Lymphocytes # 0.9 10^3/uL (0.8-4.8); Lymphocytes % 18.6 %; Mean Corpuscular HGB Conc 33.6 g/dL (30-55); Mean Corpuscular Hemoglobin 27.3 pg (27-33); Mean Corpuscular Volume 81.3 fl (82-101); Mean Platelet Volume 9.3 fL (7.4-10.4); Monocytes # 0.5 10^3/uL (0.2-0.9); Monocytes % 9.1 %; Neutrophils # 3.42 10^3/uL (1.8-7.7); Neutrophils % 67.7 %; Nucleated Red Blood Cells % 0 %; Platelet Count 113 10^3/cmm (157-399); Red Blood Count 4.61 10^6/uL (3.85-5.65); Red Cell Distribution Width 13.6 % (12.1-15.1); White Blood Count 5.05 10^3/uL (3.29-11.43)
[2024-12-01] MEDS: sodium chloride 0.9% 1,000 ML 999 ML IV ×2 (16:50→18:00)
[2024-12-01] MEDS: insulin regular-human 100 units/1 mL 16 UNIT IVP (16:52)
[2024-12-01 17:06] LABS: Alanine Aminotransferase 15 U/L (0-41); Albumin Level 3.7 g/dL (3.5-5.2); Alkaline Phosphatase 113 U/L (40-130); Anion Gap 15.8 (5-19); Aspartate Amino Transferase 11 U/L (0-40); Blood Urea Nitrogen 22 mg/dL (8-23); Calcium 8.9 mg/dL (8.5-10.5); Carbon Dioxide 24 mmol/L (22-29); Chloride 96 mmol/L (98-107); Creatinine Clr Calc Pharmacy 65.9674; Globulin 2.5 g/dL (1.3-4.6); Osmolality Calculated 306 mOsm/kg (285-295); Potassium 4.8 mmol/L (3.5-5.1); Sodium 131 mmol/L (136-145); Total Bilirubin 0.3 mg/dL (0.15-1.2); Total Protein 6.2 g/dL (6.6-8.7)
[2024-12-01 17:15] LABS: Glucose 643 mg/dL (65-115)
[2024-12-01 17:29] LABS: Glucose Point of Care 567 mg/dL (70-110)
[2024-12-01 17:29] LABS: Glucose Point of Care > 600 mg/dL (70-110)
[2024-12-01 17:54] LABS: Glucose Point of Care 473 mg/dL (70-110)
[2024-12-01 18:28] LABS: Glucose Point of Care 465 mg/dL (70-110)
[2024-12-01] MEDS: insulin regular-human 100 units/1 mL 10 UNIT IVP ×2 (18:29→20:38)
[2024-12-01 19:01] LABS: Glucose Point of Care 406 mg/dL (70-110)
[2024-12-01 19:52] LABS: Glucose Point of Care 328 mg/dL (70-110)
[2024-12-01] MEDS: sodium chloride 0.9% 500 ML 999 ML IV (20:37)
[2024-12-01 20:47] LABS: Glucose Point of Care 336 mg/dL (70-110)
[2024-12-01 20:47] LABS: Glucose Point of Care 340 mg/dL (70-110)
[2024-12-01 21:23] LABS: Glucose Point of Care 240 mg/dL (70-110)
== END 2024-12-01 21:35 | disposition home or self-care (01) ==
PROVIDERS: Emergency Medicine; Emergency Provider Emergency Medicine; PCP Family Medicine
DX: E10.65 Type 1 diabetes mellitus with hyperglycemia (principal); Z79.84 Long term (current) use of oral hypoglycemic drugs; Z87.891 Personal history of nicotine dependence; J44.9 Chronic obstructive pulmonary disease, unspecified
CPT/HCPCS: 36416; 36600; 80051; 80053; 82330; 82805; 82962; 85025; 96361; 96374; 96376; 99284; J1815; J7030; J7040

== ENCOUNTER 2024-12-03 13:30 | Outpatient (CLI) | payer MEDICARE, OTHER, SELFPAY ==
[2024-12-03 14:03] LABS: Estmated Average Glucose 151; Hemoglobin A1C 6.9 % (4.0-6.0)
[2024-12-03 14:17] LABS: Creatinine Urine, Random 101 mg/dL (39-259); Microalbum Creatinine Ratio Ur 10 mg/dL (0-20); Microalbumin Random Urine 1 ug/dL (0-20)
[2024-12-03 14:18] LABS: Alanine Aminotransferase 12 U/L (0-41); Alkaline Phosphatase 115 U/L (40-130); Aspartate Amino Transferase 12 U/L (0-40); Blood Urea Nitrogen 14 mg/dL (8-23); Calcium 9.6 mg/dL (8.5-10.5); Carbon Dioxide 28 mmol/L (22-29); Chloride 102 mmol/L (98-107); Chol HDL Ratio 3.27 mg/dL (1.0-5.00); Cholesterol 147 mg/dL (0-200); Globulin 2.6 g/dL (1.3-4.6); Glucose 136 mg/dL (65-115); HDL Cholesterol 45 mg/dL (60-100); LDL Cholesterol Calculated 51 mg/dL (50-129); LDL HDL Ratio 1.13 RATIO (0.00-3.22); Osmolality Calculated 295 mOsm/kg (285-295); Sodium 141 mmol/L (136-145); Total Bilirubin 0.2 mg/dL (0.15-1.2); Total Protein 6.6 g/dL (6.6-8.7); Triglycerides 257 mg/dL (0-150)
[2024-12-03 14:32] LABS: 25 Hydroxy Vitamin D 37 ng/mL (30-100)
== END 2024-12-03 13:31 | disposition home or self-care (01) ==
LOC: LAB 13:32
PROVIDERS: Internal Medicine; PCP Family Medicine; Visit Provider Registered Nurse
DX: E55.9 Vitamin D deficiency, unspecified (principal); E10.9 Type 1 diabetes mellitus without complications; E78.2 Mixed hyperlipidemia
CPT/HCPCS: 36415; 80053; 80061; 82044; 82306; 83036

== ENCOUNTER → 2024-12-27 09:55 | Outpatient (BNVA) | payer MEDICARE, OTHER, SELFPAY | PROVIDERS: PCP Family Medicine; Visit Provider Nurse Practitioner Family | DX: L30.9 Dermatitis, unspecified (principal); L81.2 Freckles; L57.8 Other skin changes due to chronic exposure to nonionizing radiation; L81.4 Other melanin hyperpigmentation; D22.5 Melanocytic nevi of trunk | CPT/HCPCS: 17000; 99213 ==

== ENCOUNTER → 2025-01-01 10:05 | Outpatient (BNVA) | payer MEDICARE, OTHER, SELFPAY | PROVIDERS: PCP Family Medicine; Visit Provider Internal Medicine | DX: E10.9 Type 1 diabetes mellitus without complications (principal); E78.2 Mixed hyperlipidemia | CPT/HCPCS: 99214 ==

== ENCOUNTER → 2025-01-28 10:55 | Outpatient (BNVA) | payer MEDICARE, OTHER, SELFPAY | PROVIDERS: PCP Family Medicine; Visit Provider Surgery | DX: Z12.11 Encounter for screening for malignant neoplasm of colon (principal) | CPT/HCPCS: 99024; 99214 ==

== ENCOUNTER → 2025-02-05 11:23 | Outpatient (BNVA) | payer MEDICARE, OTHER, SELFPAY | PROVIDERS: PCP Family Medicine; Visit Provider Specialist | DX: G31.84 Mild cognitive impairment of uncertain or unknown etiology (principal) | CPT/HCPCS: 96116; 99214 ==

== ENCOUNTER 2025-02-06 08:51 | Day surgery (SDC) | payer MEDICARE, OTHER, SELFPAY ==
[2025-02-06 09:05] VITALS: BP 144/69; PULSE 56; RESP 16; TEMP 36.4; O2SAT 97; BMI 25.7
--- NOTE | 2025-02-06 09:15 | W.PM.OPSUD ---
Surgery/Procedure H&P Update DATE OF PROCEDURE: February 06, 2025 DATE H&P PERFORMED: 01/28/25 H&P UPDATE INFORMATION: I have reviewed H&P completed within last 30 days, I have examined patient prior to procedure, No changes to prior documentation, Changes to prior documentation as noted here and Risks and benefits of the procedure reviewed PLANNED PROCEDURE: Operation Date: 02/06/25 10:40 Proposed Procedures p Colonoscopy 28375 G0105 Z12.11(Not Applicable) - Dimitry Lyons MD
--- NOTE | 2025-02-06 09:55 | ANES.PREANE2 ---
Pre-Anesthetic Assessment Height/Weight: Height 5 ft 11 in Weight 185 lb Temp Pulse Resp BP Pulse Ox O2 Del Method 97.5 F L 56 L 16 144/69 97 Room Air 02/06/25 09:05 02/06/25 09:05 02/06/25 09:05 02/06/25 09:05 02/06/25 09:05 02/06/25 09:05 Preop Diagnosis: Screening colonoscopy Operation Date: 02/06/25 10:40 Proposed Procedures p Colonoscopy 56651 G0105 Z12.11(Not Applicable) - Dimitry Lyons MD Was Beta Baltazar taken within 24 hours: N/A Was Clonidine taken within 24 hours: N/A Last intake: Intake Last Liquid Date 02/05/25 Last Liquid Time 23:45 Last Solid Date 02/04/25 Last Solid Time 18:30 Social No alcohol and No tobacco Quit smoking 14 years ago Exam alert and oriented x 3 Airway Submandibular: within normal limits Cervical ROM: within normal limits Dentition: false Anesthetic Plan ASA status: 3 Anesthesia: MAC Other: No prior issues with anesthesia Completed bowel prep Status post small bowel resection for mass History of hypertension on amlodipine, losartan and atenolol IDDM, patient arrived with BS of 94. Repeat 76. Patient was given a small amount of D50 Patient states that he is able to walk around just fine without getting SOB Plan for MAC anesthesia Medications/Allergies Home Medications ?Medication ?Instructions ?Recorded ?Confirmed ?Last Taken ?Type atenolol 100 mg tablet 100 mg PO DAILY 09/20/19 02/06/25 02/06/25 History fluoxetine 20 mg capsule 20 mg PO DAILY 09/20/19 02/06/25 02/05/25 History metformin 1,000 mg tablet 1,000 mg PO BID@,09/20/19 02/06/25 02/05/25 History omeprazole 20 mg capsule,delayed 20 mg PO BID@,09/20/19 02/06/25 02/05/25 History release simvastatin 40 mg tablet 20 mg PO QPM 09/20/19 02/06/25 02/05/25 History tiotropium bromide 2.5 2 inh inhalation DAILY@09/20/19 02/06/25 02/05/25 History mcg/actuation mist for inhalation (Spiriva Respimat) ascorbic acid (vitamin C) 500 mg 500 mg PO DAILY@09 07/10/20 02/06/25 02/05/25 History tablet (Vitamin C) cholecalciferol (vitamin D3) 25 2,000 unit PO QPM 07/10/20 02/06/25 02/05/25 History mcg (1,000 unit) capsule (Vitamin D3) losartan 100 mg tablet 50 mg PO QPM 07/10/20 02/06/25 02/05/25 History jamwnkhj-zee-hljnc acid 0.4 1 tab PO DAILY 07/10/20 02/06/25 02/05/25 History mg-lycopene 300 mcg-lutein 250 mcg tablet (Centrum Silver) amlodipine 5 mg tablet 5 mg PO DAILY 12/21/21 02/06/25 02/05/25 History docusate sodium 100 mg capsule 100 mg PO BID PRN Constipation 05/26/22 02/06/25 02/05/25 History (Colace) dutasteride 0.5 mg capsule 0.5 mg PO BEDTIME #90 caps 12/22/22 02/06/25 02/05/25 Rx tamsulosin 0.4 mg capsule 0.4 mg PO DAILY #90 caps 12/22/22 02/06/25 02/05/25 Rx amlodipine 2.5 mg tablet 2.5 mg PO DAILY 09/12/23 02/06/25 02/05/25 History hydrochlorothiazide 25 mg tablet 12.5 mg PO QAM 11/10/23 02/06/25 02/05/25 History insulin aspart U-100 100 unit/mL 80 unit (0.8 mL) SUBCUT .via pump 10/01/24 02/06/25 02/05/25 Rx subcutaneous solution (Novolog per day #80 mL U-100 Insulin aspart) albuterol sulfate 90 mcg/actuation 2 puff inhalation Q6H PRN sob 10/15/24 02/06/25 02/05/25 History aerosol inhaler (Ventolin HFA) galantamine 4 mg tablet 8 mg (2 x 4 mg) PO BID 90 days 02/05/25 02/06/25 02/05/25 Rx #360 tabs Allergies Allergy/AdvReac Type Severity Reaction Status Date / Time No Known Allergies Allergy Verified 02/06/25 09:03 Current Medications Generic Name Dose Route Start Last Admin Trade Name Freq PRN Reason Stop Dose Admin Sodium Chloride 1,000 mls @ 15 mls/hr 02/06/25 08:55 02/06/25 09:14 Sodium Chloride 0.9% IV 02/07/25 08:54 15 mls/hr .Q24H PRN Administration COLONOSCOPY FLUIDS PFSH Anesthesia Medical History Asthma Left ureteral calculus Bilateral renal stones BPH NOS w ur obs/LUTS High cholesterol COPD (chronic obstructive pulmonary disease) Diabetes Degenerative arthritis of knee Family History Father Diabetes Other Stroke Social History Smoking and tobacco/nicotine status: former use of tobacco/nicotine (quit 2012) Alcohol intake: never Substance/Drug Use: never Marital status: Current occupational status: retired Data Anesthesia Cardiac Studies: Holter Monitor 12/19/23
[2025-02-06 10:35] VITALS: BP 120/61; PULSE 50; RESP 16; TEMP 36.2; O2SAT 97
[2025-02-06 10:40] VITALS: BP 129/69; PULSE 51; RESP 18; O2SAT 98
[2025-02-06 10:50] VITALS: BP 137/72; PULSE 49; RESP 18; O2SAT 96
--- NOTE | 2025-02-06 11:10 | ANE.PACU2 ---
Inpatient post-anesthesia follow up: Airway intact: Yes Vital signs: Temperature 97.1 F Pulse Rate 49 Respiratory Rate 18 Blood Pressure 137/72 Pulse Oximetry 96 Oxygen Delivery Me thod Room Air Oxygen Flow Rate 3 Fraction of Inspir ed Oxygen Hydration adequate: Yes Nausea and vomiting: No Pain level: 1 Mental status: Baseline
== END 2025-02-06 11:10 | disposition home or self-care (01) ==
PROVIDERS: PCP Family Medicine; Visit Provider Surgery
PROC: 0DJD8ZZ Inspection of Lower Intestinal Tract, Via Natural or Artificial Opening Endoscopic (ICD-10-PCS; CPT 45378; principal; 2025-02-06 10:40)
DX: Z12.11 Encounter for screening for malignant neoplasm of colon (principal); D12.4 Benign neoplasm of descending colon; D12.3 Benign neoplasm of transverse colon; K63.5 Polyp of colon; E11.9 Type 2 diabetes mellitus without complications; J44.9 Chronic obstructive pulmonary disease, unspecified; I10 Essential (primary) hypertension; Z87.891 Personal history of nicotine dependence; Z79.84 Long term (current) use of oral hypoglycemic drugs; Z79.899 Other long term (current) drug therapy; Z79.4 Long term (current) use of insulin
CPT/HCPCS: 36416; 45385; 82962; 88305; J2704; J7030; J7799

== ENCOUNTER 2025-02-10 13:58 | Outpatient (CLI) | payer MEDICARE, OTHER, SELFPAY ==
[2025-02-13 00:31] LABS: Phosphorylated tau217 0.32 pg/mL (< OR = 0.15)
[2025-02-14 11:01] LABS: Apolipoprotein E (ApoE) Isofor E2/E3
== END 2025-02-10 13:59 | disposition home or self-care (01) ==
LOC: LAB 13:59
PROVIDERS: PCP Family Medicine; Visit Provider Specialist
DX: G31.84 Mild cognitive impairment of uncertain or unknown etiology (principal)
CPT/HCPCS: 36415; 82542; 83520

== ENCOUNTER → 2025-02-19 10:22 | Outpatient (BNVA) | payer MEDICARE, OTHER, SELFPAY | PROVIDERS: PCP Family Medicine; Visit Provider Surgery | DX: Z09 Encounter for follow-up examination after completed treatment for conditions other than malignant neoplasm (principal) | CPT/HCPCS: 99213 ==

== ENCOUNTER 2025-03-26 10:31 | Outpatient (CLI) | payer MEDICARE, OTHER, SELFPAY ==
[2025-03-26 11:36] LABS: Creatinine Urine, Random 126 mg/dL (39-259); Microalbum Creatinine Ratio Ur 8 mg/dL (0-20)
[2025-03-26 11:40] LABS: Alanine Aminotransferase 9 U/L (0-41); Albumin Level 3.9 g/dL (3.5-5.2); Alkaline Phosphatase 93 U/L (40-130); Anion Gap 13.8 (5-19); Aspartate Amino Transferase 13 U/L (0-40); Blood Urea Nitrogen 20 mg/dL (8-23); Calcium 9.4 mg/dL (8.5-10.5); Carbon Dioxide 27 mmol/L (22-29); Chloride 107 mmol/L (98-107); Cholesterol 120 mg/dL (0-200); Globulin 2.5 g/dL (1.3-4.6); Glucose 138 mg/dL (65-115); HDL Cholesterol 40 mg/dL (60-100); Osmolality Calculated 301 mOsm/kg (285-295); Potassium 4.8 mmol/L (3.5-5.1); Sodium 143 mmol/L (136-145); Total Protein 6.4 g/dL (6.6-8.7); Triglycerides 151 mg/dL (0-150)
[2025-03-26 12:09] LABS: Estmated Average Glucose 128; Hemoglobin A1C 6.1 % (4.0-6.0)
== END 2025-03-26 10:32 | disposition home or self-care (01) ==
LOC: LAB 10:34
PROVIDERS: PCP Family Medicine; Visit Provider Internal Medicine
DX: E10.9 Type 1 diabetes mellitus without complications (principal); E78.2 Mixed hyperlipidemia
CPT/HCPCS: 36415; 80053; 80061; 82044; 83036

== ENCOUNTER → 2025-04-02 10:05 | Outpatient (BNVA) | payer MEDICARE, OTHER, SELFPAY | PROVIDERS: PCP Family Medicine; Visit Provider Internal Medicine | DX: E10.9 Type 1 diabetes mellitus without complications (principal); E78.2 Mixed hyperlipidemia | CPT/HCPCS: 99214 ==

== ENCOUNTER 2025-07-24 13:47 | Outpatient (CLI) | payer OTHER, MEDICARE, SELFPAY ==
[2025-07-24 14:45] LABS: Alanine Aminotransferase 11 U/L (0-41); Albumin Level 4.4 g/dL (3.5-5.2); Alkaline Phosphatase 93 U/L (40-130); Anion Gap 16.3 (5-19); Aspartate Amino Transferase 17 U/L (0-40); Blood Urea Nitrogen 16 mg/dL (8-23); Calcium 9.5 mg/dL (8.5-10.5); Carbon Dioxide 27 mmol/L (22-29); Chloride 104 mmol/L (98-107); Cholesterol 136 mg/dL (0-200); Globulin 2.3 g/dL (1.3-4.6); Glucose 94 mg/dL (65-115); HDL Cholesterol 49 mg/dL (60-100); Osmolality Calculated 297 mOsm/kg (285-295); Potassium 4.3 mmol/L (3.5-5.1); Sodium 143 mmol/L (136-145); Total Protein 6.7 g/dL (6.6-8.7); Triglycerides 139 mg/dL (0-150)
[2025-07-24 14:47] LABS: Estmated Average Glucose 128; Hemoglobin A1C 6.1 % (4.0-6.0)
[2025-07-24 14:51] LABS: Creatinine Urine, Random 104 mg/dL (39-259); Microalbum Creatinine Ratio Ur 10 mg/dL (0-20)
== END 2025-07-24 13:48 | disposition home or self-care (01) ==
PROVIDERS: PCP Family Medicine; Visit Provider Internal Medicine
DX: E10.9 Type 1 diabetes mellitus without complications (principal); E78.2 Mixed hyperlipidemia
CPT/HCPCS: 36415; 80053; 80061; 82044; 83036

== ENCOUNTER → 2025-07-28 10:31 | Outpatient (BNVA) | payer OTHER, SELFPAY | PROVIDERS: PCP Family Medicine; Visit Provider Internal Medicine Endocrinology, Diabetes & Metabolism | DX: R03.0 Elevated blood-pressure reading, without diagnosis of hypertension (principal); E10.8 Type 1 diabetes mellitus with unspecified complications | CPT/HCPCS: 99214 ==